=== PATIENT | female | born 1940 | race Caucasian/White ===

== ENCOUNTER 2016-10-19 14:09 | Inpatient (IN) | payer MEDICARE ==
[2016-10-19] MEDS ORDERED: Temazepam CAP* 15 MG PO PRN (15:43)
[2016-10-19] MEDS ORDERED: Dextrose 50% Syringe 50 ML* 25 GM/50 ML SYRINGE IV PUSH PRN (15:46)
[2016-10-19] MEDS ORDERED: Senna TAB PO PRN (15:49)
[2016-10-19] MEDS: oxyCODONE/Acetamin 5/325 MG* TAB PO PRN (18:03)
[2016-10-19] MEDS: Oxacillin(*) 2 GM in NS 0.9% 100 ML* 100 ML IVPB SCH ×2 (18:09→21:05)
[2016-10-19] MEDS: Insulin LISPRO* 1 UNITS UNIT SUBCUT SCH (18:37)
[2016-10-19] MEDS: Polyethylene Glycol 3350* 17 GM PACKET PO SCH (21:08)
[2016-10-19] MEDS: Insulin GLARGINE(*) 1 UNITS UNIT SUBCUT SCH (21:08)
[2016-10-19] MEDS: Atorvastatin* 40 MG TAB PO SCH (21:08)
[2016-10-19] MEDS: Docusate CAP* 100 MG PO SCH (21:08)
[2016-10-19] MEDS: Heparin VIAL(*) 5000 UNITS/ML VIAL (FIVE THOUSAND) SUBCUT SCH (21:09)
[2016-10-19] MEDS: oxyCODONE SR TAB(*) 10 MG TAB.SR PO SCH (21:12)
[2016-10-19] MEDS: Timolol 0.5% OPTH.SOL* BTL BOTH EYES SCH (21:13)
[2016-10-20] MEDS: Oxacillin(*) 2 GM in NS 0.9% 100 ML* 100 ML IVPB SCH ×6 (00:03→19:55)
[2016-10-20] MEDS: Heparin VIAL(*) 5000 UNITS/ML VIAL (FIVE THOUSAND) SUBCUT SCH ×3 (05:41→21:10)
[2016-10-20 06:07] LABS: Hematocrit 26 % (35-47); Hemoglobin 8.5 g/dl (12.0-16.0); Mean Corpuscular HGB Conc 34 g/dl (31-36); Mean Corpuscular Hemoglobin 27 pg (27-31); Mean Corpuscular Volume 81 fL (80-97); Mean Platelet Volume 7 um3 (7.4-10.4); Red Blood Count 3.15 10^6/ul (4.0-5.4); Red Cell Distribution Width 16 % (10.5-15); White Blood Count 9.5 10^3/ul (3.5-10.8)
[2016-10-20 06:08] LABS: Add Diff/Slide Review? Slide Review Added; Comments Flag Yes
[2016-10-20 06:18] LABS: BUN/Creatinine Ratio 20.6 (8-20); EGFR African American 118.5 (>60); EGFR Non-African American 92.1 (>60); Potassium 3.8 mmol/L (3.5-5.0)
[2016-10-20] MEDS: Timolol 0.5% OPTH.SOL* BTL BOTH EYES SCH ×2 (08:17→21:10)
[2016-10-20] MEDS: amLODIPine TAB* 5 MG PO SCH (08:17)
[2016-10-20] MEDS: Insulin LISPRO* 1 UNITS UNIT SUBCUT SCH ×3 (08:17→17:08)
[2016-10-20] MEDS: Polyethylene Glycol 3350* 17 GM PACKET PO SCH ×2 (08:17→21:09)
[2016-10-20] MEDS: oxyCODONE/Acetamin 5/325 MG* TAB PO PRN ×3 (08:18→17:57)
[2016-10-20] MEDS: Docusate CAP* 100 MG PO SCH ×2 (08:18→21:09)
[2016-10-20] MEDS: oxyCODONE SR TAB(*) 10 MG TAB.SR PO SCH ×2 (08:19→21:09)
[2016-10-20] MEDS: Atenolol TAB* 50 MG PO SCH (08:19)
[2016-10-20] MEDS: Cyclobenzaprine TAB* 10 MG PO PRN (17:57)
[2016-10-20] MEDS: Atorvastatin* 40 MG TAB PO SCH (21:09)
[2016-10-20] MEDS: Insulin GLARGINE(*) 1 UNITS UNIT SUBCUT SCH (21:10)
[2016-10-21] MEDS: Oxacillin(*) 2 GM in NS 0.9% 100 ML* 100 ML IVPB SCH ×7 (00:07→23:45)
[2016-10-21] MEDS: Heparin VIAL(*) 5000 UNITS/ML VIAL (FIVE THOUSAND) SUBCUT SCH ×3 (05:30→20:26)
[2016-10-21] MEDS: amLODIPine TAB* 5 MG PO SCH (08:10)
[2016-10-21] MEDS: oxyCODONE/Acetamin 5/325 MG* TAB PO PRN ×3 (08:10→18:03)
[2016-10-21] MEDS: oxyCODONE SR TAB(*) 10 MG TAB.SR PO SCH ×2 (08:10→20:26)
[2016-10-21] MEDS: Docusate CAP* 100 MG PO SCH ×2 (08:10→20:26)
[2016-10-21] MEDS: Polyethylene Glycol 3350* 17 GM PACKET PO SCH ×2 (08:10→20:26)
[2016-10-21] MEDS: Insulin LISPRO* 1 UNITS UNIT SUBCUT SCH ×3 (08:11→18:04)
[2016-10-21] MEDS: Atenolol TAB* 50 MG PO SCH (08:11)
[2016-10-21] MEDS: Cyclobenzaprine TAB* 10 MG PO PRN ×2 (08:11→18:03)
[2016-10-21] MEDS: Timolol 0.5% OPTH.SOL* BTL BOTH EYES SCH ×2 (08:45→20:25)
[2016-10-21] MEDS: Atorvastatin* 40 MG TAB PO SCH (20:25)
[2016-10-21] MEDS ORDERED: Insulin GLARGINE(*) 1 UNITS UNIT SUBCUT SCH (21:00)
[2016-10-22] MEDS: Oxacillin(*) 2 GM in NS 0.9% 100 ML* 100 ML IVPB SCH ×5 (04:14→20:50)
[2016-10-22] MEDS: Heparin VIAL(*) 5000 UNITS/ML VIAL (FIVE THOUSAND) SUBCUT SCH ×3 (05:07→21:14)
[2016-10-22] MEDS: Insulin LISPRO* 1 UNITS UNIT SUBCUT SCH ×7 (08:25→22:39)
[2016-10-22] MEDS: amLODIPine TAB* 5 MG PO SCH (08:44)
[2016-10-22] MEDS: oxyCODONE SR TAB(*) 10 MG TAB.SR PO SCH ×2 (08:44→21:13)
[2016-10-22] MEDS: Docusate CAP* 100 MG PO SCH ×2 (08:44→21:13)
[2016-10-22] MEDS: Polyethylene Glycol 3350* 17 GM PACKET PO SCH ×2 (08:44→21:14)
[2016-10-22] MEDS: Timolol 0.5% OPTH.SOL* BTL BOTH EYES SCH ×2 (08:44→21:14)
[2016-10-22] MEDS: Atenolol TAB* 50 MG PO SCH (08:44)
[2016-10-22] MEDS: oxyCODONE/Acetamin 5/325 MG* TAB PO PRN ×3 (08:56→21:18)
[2016-10-22] MEDS ORDERED: Insulin LISPRO* 1 UNITS UNIT SUBCUT SCH ×2 (11:30)
[2016-10-22] MEDS: Atorvastatin* 40 MG TAB PO SCH (21:12)
[2016-10-22] MEDS: Insulin GLARGINE(*) 1 UNITS UNIT SUBCUT SCH (21:14)
[2016-10-23] MEDS: Oxacillin(*) 2 GM in NS 0.9% 100 ML* 100 ML IVPB SCH ×6 (00:46→20:08)
[2016-10-23] MEDS: Heparin VIAL(*) 5000 UNITS/ML VIAL (FIVE THOUSAND) SUBCUT SCH ×3 (05:38→23:16)
[2016-10-23] MEDS: Insulin LISPRO* 1 UNITS UNIT SUBCUT SCH ×7 (08:16→20:57)
[2016-10-23] MEDS: amLODIPine TAB* 5 MG PO SCH (08:32)
[2016-10-23] MEDS: Docusate CAP* 100 MG PO SCH ×2 (08:32→20:08)
[2016-10-23] MEDS: oxyCODONE SR TAB(*) 10 MG TAB.SR PO SCH ×2 (08:32→20:58)
[2016-10-23] MEDS: Atenolol TAB* 50 MG PO SCH (08:33)
[2016-10-23] MEDS: Polyethylene Glycol 3350* 17 GM PACKET PO SCH ×2 (08:33→20:08)
[2016-10-23] MEDS: Timolol 0.5% OPTH.SOL* BTL BOTH EYES SCH ×2 (08:59→21:09)
--- NOTE | 2016-10-23 14:24 | PN ---
Progress Note - Progress Note SOAP: Subjective: DOS: 10/23/16 CC: epidural abscess 76 yo woman with Cervical and lumbad spine epidural abscess, s/p decompression of cervical abscess. Neck pain better but does recur 2-3 times per day, pain medicine helps, not worse with movement. No arm weakness or numbness. No problems with PICC. Objective: [] Selected Entries 10/23/16 07:35 Temperature 36.9 C Pulse Rate 89 Respiratory 15 Rate Blood Pressure 152/65 (mmHg) O2 Sat by Pulse 97 Oximetry Gen:AAOx3 HEENT:PERRL, MMM Neck:no mass Heart:no murmur, RRR Lungs:CTA BL Abd:+BS NTND soft Skin: no rash MSK: c spine incision intact no erythema; no L spine tenderness Laboratory Tests 10/20/16 10/20/16 05:30 05:30 WBC 9.5 Creatinine 0.63 Assessment: 1. cervical and lumbar epidural abscess due to MSSA 2. MSSA bacteremia, cleared 3. Diabetes 4. terminal block assembler abx 5. neck pain Plan: 1. Day 15 oxacillin 2 gm IV Q4hrs, tolerating it well, we discussed side effects to notify of and will continue weekly cbc, cmp, crp 2. tyelnol/oxycodone with scheduled oxycontin, can't add NSAIDs with heparin 3. PT
[2016-10-23] MEDS: oxyCODONE/Acetamin 5/325 MG* TAB PO PRN ×2 (16:31→21:09)
[2016-10-23] MEDS: Atorvastatin* 40 MG TAB PO SCH (20:08)
[2016-10-23] MEDS: Insulin GLARGINE(*) 1 UNITS UNIT SUBCUT SCH (20:56)
[2016-10-23] MEDS ORDERED: Magnesium Hydroxide LIQ* 30 ML UDC PO ONE (21:26)
[2016-10-24] MEDS: Oxacillin(*) 2 GM in NS 0.9% 100 ML* 100 ML IVPB SCH ×7 (00:39→23:59)
[2016-10-24] MEDS: Heparin VIAL(*) 5000 UNITS/ML VIAL (FIVE THOUSAND) SUBCUT SCH ×3 (06:12→21:29)
[2016-10-24] MEDS: Insulin LISPRO* 1 UNITS UNIT SUBCUT SCH ×7 (07:42→20:17)
[2016-10-24] MEDS: Atenolol TAB* 50 MG PO SCH (08:13)
[2016-10-24] MEDS: Docusate CAP* 100 MG PO SCH ×2 (08:13→20:19)
[2016-10-24] MEDS: amLODIPine TAB* 5 MG PO SCH (08:13)
[2016-10-24] MEDS: oxyCODONE/Acetamin 5/325 MG* TAB PO PRN ×3 (08:13→20:16)
[2016-10-24] MEDS: Polyethylene Glycol 3350* 17 GM PACKET PO SCH ×2 (08:13→20:16)
[2016-10-24] MEDS: oxyCODONE SR TAB(*) 10 MG TAB.SR PO SCH ×2 (08:14→20:17)
[2016-10-24] MEDS: Timolol 0.5% OPTH.SOL* BTL BOTH EYES SCH ×2 (08:51→20:19)
--- NOTE | 2016-10-24 09:15 | PN ---
Progress Note - Progress Note SOAP: Subjective: []DOS: 10/24/16 CC: epidural abscess 76 yo woman with Cervical and lumbar spine epidural abscess, s/p decompression of cervical abscess. Neck pain comes and goes, worse in the morning, throbbing , does not radiate, no arm weakness, pain medication helps. No fever, rash, or diarrhea. Current Medications Amlodipine Besylate (Norvasc Tab*) 10 mg PO DAILY [facility] Last Admin: 10/24/16 08:13 Dose: 10 mg Atenolol (Tenormin Tab*) 50 mg PO DAILY [facility] Last Admin: 10/24/16 08:13 Dose: 50 mg Atorvastatin Calcium (Lipitor*) 40 mg PO 2100 [facility] Last Admin: 10/23/16 20:08 Dose: 40 mg Cyclobenzaprine HCl (Flexeril Tab*) 10 mg PO TID PRN PRN Reason: SPASMS Last Admin: 10/21/16 18:03 Dose: 10 mg Dextrose (D50w Syringe*) 12.5 gm IV PUSH .FOR FS < 60 - SS PRN PRN Reason: FS < 60 Docusate Sodium (Colace Cap*) 100 mg PO BID [facility] Last Admin: 10/24/16 08:13 Dose: 100 mg Heparin Sodium (Porcine) (Heparin Flush Picc/Ml/Cvc(*)) 1 ml FLUSH 0600,1800 [facility] PRN Reason: Protocol Last Admin: 10/24/16 06:13 Dose: 1 ml Heparin Sodium (Porcine) (Heparin Vial(*)) 5,000 units SUBCUT Q8HR [facility] Last Admin: 10/24/16 06:12 Dose: 5,000 units Oxacillin Sodium 2 gm/ Sodium (Chloride) 100 mls @ 200 mls/hr IVPB Q4H [facility] Last Admin: 10/24/16 08:51 Dose: 200 mls/hr Insulin Glargine (Lantus(*)) 35 units SUBCUT Q24H [facility] Last Admin: 10/23/16 20:56 Dose: 35 units Insulin Human Lispro (Humalog*) 0 units SUBCUT AC [facility] PRN Reason: Protocol Last Admin: 10/24/16 08:51 Dose: 7 units Insulin Human Lispro (Humalog*) 0 units SUBCUT ACHS [facility] PRN Reason: Protocol Last Admin: 10/24/16 07:42 Dose: Not Given Oxycodone HCl (Oxycontin(*)) 10 mg PO Q12HR [facility] Last Admin: 10/24/16 08:14 Dose: 10 mg Oxycodone/Acetaminophen (Percocet 5/325 Tab*) 2 tab PO Q4H PRN PRN Reason: Pain Last Admin: 10/24/16 08:13 Dose: 2 tab Polyethylene Glycol/Electrolytes (Miralax*) 17 gm PO 0800,2100 [facility] Last Admin: 10/24/16 08:13 Dose: 17 gm Senna (Senokot Tab*) 1 tab PO BEDTIME PRN PRN Reason: CONSTIPATION Last Admin: 10/23/16 20:08 Dose: 1 tab Temazepam (Restoril Cap*) 15 mg PO BEDTIME PRN PRN Reason: INSOMNIA Timolol Maleate (Timoptic 0.5% Opth*) 1 drop BOTH EYES BID [facility] Last Admin: 10/24/16 08:51 Dose: 1 drop Objective: [] Selected Entries 10/24/16 07:36 Temperature 36.8 C Pulse Rate 91 Respiratory 16 Rate Blood Pressure 148/41 (mmHg) O2 Sat by Pulse 98 Oximetry Gen:AAOx3 HEENT:PERRL, MMM Neck:no mass Heart:no murmur, RRR Lungs:CTA BL Abd:+BS NTND soft Skin: no rash MSK: c spine incision intact no erythema; no L spine tenderness Laboratory Tests 10/20/16 10/20/16 05:30 05:30 WBC 9.5 Plt Count 439 Creatinine 0.63 Assessment: 1. cervical and lumbar epidural abscess due to MSSA 2. MSSA bacteremia, cleared 3. Diabetes 4. correction abx 5. neck pain Plan: 1. Day oxacillin 2 gm IV Q4hrs, tolerating it well, we discussed side effects to notify of and will continue weekly cbc, cmp, crp 2. tyelnol/oxycodone with scheduled oxycontin, can't add NSAIDs with heparin 3. PT Discussed with Dr Murillo
[2016-10-24] MEDS: Atorvastatin* 40 MG TAB PO SCH (20:16)
[2016-10-24] MEDS: Insulin GLARGINE(*) 1 UNITS UNIT SUBCUT SCH (20:18)
[2016-10-25] MEDS: oxyCODONE/Acetamin 5/325 MG* TAB PO PRN ×5 (00:03→21:28)
[2016-10-25] MEDS: Oxacillin(*) 2 GM in NS 0.9% 100 ML* 100 ML IVPB SCH ×5 (04:00→20:20)
[2016-10-25] MEDS: Heparin VIAL(*) 5000 UNITS/ML VIAL (FIVE THOUSAND) SUBCUT SCH ×3 (05:22→21:48)
[2016-10-25 06:52] LABS: Hematocrit 27 % (35-47); Mean Corpuscular HGB Conc 33 g/dl (31-36); Mean Corpuscular Hemoglobin 28 pg (27-31); Mean Corpuscular Volume 83 fL (80-97); Mean Platelet Volume 7 um3 (7.4-10.4); Red Blood Count 3.26 10^6/ul (4.0-5.4); Red Cell Distribution Width 17 % (10.5-15); White Blood Count 8.7 10^3/ul (3.5-10.8)
[2016-10-25 06:53] LABS: Add Diff/Slide Review? Slide Review Added; Comments Flag Yes
[2016-10-25 07:09] LABS: Albumin 2.7 g/dL (3.2-5.2); BUN/Creatinine Ratio 20.6 (8-20); C Reactive Protein 57.12 mg/L (< 5.00); Calcium 8.8 mg/dL (8.6-10.3); EGFR African American 118.5 (>60); EGFR Non-African American 92.1 (>60); Globulin 3.9 g/dL (2-4); Potassium 3.9 mmol/L (3.5-5.0); Total Bilirubin 0.2 mg/dL (0.2-1.0); Total Protein 6.6 g/dL (6.4-8.9)
[2016-10-25] MEDS: Insulin LISPRO* 1 UNITS UNIT SUBCUT SCH ×7 (09:01→21:43)
[2016-10-25] MEDS: Atenolol TAB* 50 MG PO SCH (09:05)
[2016-10-25] MEDS: amLODIPine TAB* 5 MG PO SCH (09:05)
[2016-10-25] MEDS: oxyCODONE SR TAB(*) 10 MG TAB.SR PO SCH ×2 (09:05→20:43)
[2016-10-25] MEDS: Polyethylene Glycol 3350* 17 GM PACKET PO SCH ×2 (09:12→21:23)
[2016-10-25] MEDS: Docusate CAP* 100 MG PO SCH ×2 (09:12→21:23)
[2016-10-25] MEDS: Timolol 0.5% OPTH.SOL* BTL BOTH EYES SCH ×2 (09:13→21:49)
--- NOTE | 2016-10-25 13:12 | PN ---
Subjective Date of Service: 10/25/16 Interval History: HOSPITALIST PROGRESS NOTE Patient seen and examined at bedside. She feels well today. Still has some cervical pain, but overall feels better. Family History: Unchanged from Admission Social History: Unchanged from Admission Past Medical History: Unchanged from Admission Objective Active Medications: Amlodipine Besylate (Norvasc Tab*) 10 mg PO DAILY [facility] Last Admin: 10/25/16 09:05 Dose: 10 mg Atenolol (Tenormin Tab*) 50 mg PO DAILY [facility] Last Admin: 10/25/16 09:05 Dose: 50 mg Atorvastatin Calcium (Lipitor*) 40 mg PO 2100 [facility] Last Admin: 10/24/16 20:16 Dose: 40 mg Cyclobenzaprine HCl (Flexeril Tab*) 10 mg PO TID PRN PRN Reason: SPASMS Last Admin: 10/21/16 18:03 Dose: 10 mg Dextrose (D50w Syringe*) 12.5 gm IV PUSH .FOR FS < 60 - SS PRN PRN Reason: FS < 60 Docusate Sodium (Colace Cap*) 100 mg PO BID [facility] Last Admin: 10/25/16 09:12 Dose: Not Given Heparin Sodium (Porcine) (Heparin Flush Picc/Ml/Cvc(*)) 1 ml FLUSH 0600,1800 [facility] PRN Reason: Protocol Last Admin: 10/25/16 05:22 Dose: 1 ml Heparin Sodium (Porcine) (Heparin Vial(*)) 5,000 units SUBCUT Q8HR [facility] Last Admin: 10/25/16 05:22 Dose: 5,000 units Oxacillin Sodium 2 gm/ Sodium (Chloride) 100 mls @ 200 mls/hr IVPB Q4H [facility] Last Admin: 10/25/16 09:07 Dose: 200 mls/hr Insulin Glargine (Lantus(*)) 30 units SUBCUT Q24H [facility] Last Admin: 10/24/16 20:18 Dose: 30 units Insulin Human Lispro (Humalog*) 0 units SUBCUT ACHS [facility] PRN Reason: Protocol Last Admin: 10/25/16 09:06 Dose: 10 units Insulin Human Lispro (Humalog*) 0 units SUBCUT AC [facility] PRN Reason: Protocol Oxycodone HCl (Oxycontin(*)) 10 mg PO Q12HR [facility] Last Admin: 10/25/16 09:05 Dose: 10 mg Oxycodone/Acetaminophen (Percocet 5/325 Tab*) 2 tab PO Q4H PRN PRN Reason: Pain Last Admin: 10/25/16 10:50 Dose: 2 tab Polyethylene Glycol/Electrolytes (Miralax*) 17 gm PO 0800,2100 [facility] Last Admin: 10/25/16 09:12 Dose: Not Given Senna (Senokot Tab*) 1 tab PO BEDTIME PRN PRN Reason: CONSTIPATION Last Admin: 10/23/16 20:08 Dose: 1 tab Temazepam (Restoril Cap*) 15 mg PO BEDTIME PRN PRN Reason: INSOMNIA Timolol Maleate (Timoptic 0.5% Opth*) 1 drop BOTH EYES BID [facility] Last Admin: 10/25/16 09:13 Dose: 1 drop Vital Signs 10/25/16 10/25/16 10/25/16 07:44 09:05 10:50 Temperature 98.4 F Pulse Rate 80 Respiratory 16 20 18 Rate Blood Pressure 150/50 (mmHg) O2 Sat by Pulse 99 Oximetry Oxygen Devices in Use Now: None Appearance: Pleasant elderly lady sitting up in a chair in [facility]. Eyes: No Scleral Icterus Ears/Nose/Mouth/Throat: Mucous Membranes Moist Neck: - - Surgical incision on posterior neck looks clean and dry. There's no erythema or drainage. Stitches on the right are still present. Respiratory: Symmetrical Chest Expansion and Respiratory Effort, Clear to Auscultation Cardiovascular: RRR - Normal S1 and S2 Abdominal: NL Sounds; No Tenderness; No Distention Extremities: No Edema, - - No right arm edema or tenderness Neurological: Alert and Oriented x 3, NL Muscle Strength and Tone Lines/Tubes/Other Access: Clean, Dry and Intact PICC Line Nutrition: Taking PO's Result Diagrams: 10/25/16 06:16 10/25/16 06:16 Assess/Plan/Problems-Billing Assessment: Mrs. Peralta is a 76yo F with PMH of type 2 DM, HLD, HTN who was admitted with cervical spine epidural abscess s/p surgical decompression and lumbar spine epidural abscess undergoing medical treatment. - Patient Problems (1) MSSA (methicillin susceptible Staphylococcus aureus) septicemia Comment: - With cervical and lumbar epidural abscess. - Continue Oxacillin #. - Check weekly CBC, CMP, CRP. (2) Type 2 diabetes mellitus Comment: - Difficult to control due to variable carb intake - will change to consistent carb diet and continue Lantus and Lispro SS. - Patient educated about importance of carbohydrate counting. (3) HTN (hypertension) Comment: - Controlled. - Continue Atenolol and Amlodipine. (4) DVT prophylaxis Comment: - SQ heparin. Status and Disposition: Inpatient.
[2016-10-25] MEDS: Atorvastatin* 40 MG TAB PO SCH (20:42)
[2016-10-25] MEDS: Insulin GLARGINE(*) 1 UNITS UNIT SUBCUT SCH (21:47)
[2016-10-26] MEDS: Oxacillin(*) 2 GM in NS 0.9% 100 ML* 100 ML IVPB SCH ×6 (00:20→20:00)
[2016-10-26] MEDS: oxyCODONE/Acetamin 5/325 MG* TAB PO PRN ×3 (06:20→18:16)
[2016-10-26] MEDS: Heparin VIAL(*) 5000 UNITS/ML VIAL (FIVE THOUSAND) SUBCUT SCH ×3 (06:21→21:36)
[2016-10-26] MEDS: Docusate CAP* 100 MG PO SCH ×2 (09:10→21:36)
[2016-10-26] MEDS: amLODIPine TAB* 5 MG PO SCH (09:10)
[2016-10-26] MEDS: Polyethylene Glycol 3350* 17 GM PACKET PO SCH ×2 (09:11→21:36)
[2016-10-26] MEDS: Timolol 0.5% OPTH.SOL* BTL BOTH EYES SCH ×2 (09:11→21:43)
[2016-10-26] MEDS: oxyCODONE SR TAB(*) 10 MG TAB.SR PO SCH ×2 (09:11→21:36)
[2016-10-26] MEDS: Atenolol TAB* 50 MG PO SCH (09:11)
[2016-10-26] MEDS: Insulin LISPRO* 1 UNITS UNIT SUBCUT SCH ×7 (09:20→21:34)
[2016-10-26] MEDS: Insulin GLARGINE(*) 1 UNITS UNIT SUBCUT SCH (21:35)
[2016-10-26] MEDS: Atorvastatin* 40 MG TAB PO SCH (21:36)
[2016-10-27] MEDS: Oxacillin(*) 2 GM in NS 0.9% 100 ML* 100 ML IVPB SCH ×6 (00:38→21:20)
[2016-10-27] MEDS: Heparin VIAL(*) 5000 UNITS/ML VIAL (FIVE THOUSAND) SUBCUT SCH ×3 (05:07→21:18)
[2016-10-27] MEDS: oxyCODONE SR TAB(*) 10 MG TAB.SR PO SCH ×2 (07:46→21:18)
[2016-10-27] MEDS: oxyCODONE/Acetamin 5/325 MG* TAB PO PRN ×4 (07:46→21:35)
[2016-10-27] MEDS: Docusate CAP* 100 MG PO SCH ×2 (07:50→21:18)
[2016-10-27] MEDS: Polyethylene Glycol 3350* 17 GM PACKET PO SCH ×2 (07:50→21:18)
[2016-10-27] MEDS: Atenolol TAB* 50 MG PO SCH (07:50)
[2016-10-27] MEDS: amLODIPine TAB* 5 MG PO SCH (07:50)
[2016-10-27] MEDS: Timolol 0.5% OPTH.SOL* BTL BOTH EYES SCH ×2 (09:12→21:18)
[2016-10-27] MEDS: Insulin LISPRO* 1 UNITS UNIT SUBCUT SCH ×7 (09:13→21:43)
[2016-10-27] MEDS: Atorvastatin* 40 MG TAB PO SCH (21:18)
[2016-10-27] MEDS: Cyclobenzaprine TAB* 10 MG PO PRN (21:18)
[2016-10-27] MEDS: Insulin GLARGINE(*) 1 UNITS UNIT SUBCUT SCH (21:19)
[2016-10-28] MEDS: Oxacillin(*) 2 GM in NS 0.9% 100 ML* 100 ML IVPB SCH ×6 (00:44→20:25)
[2016-10-28] MEDS: oxyCODONE/Acetamin 5/325 MG* TAB PO PRN ×3 (06:12→21:07)
[2016-10-28] MEDS: Heparin VIAL(*) 5000 UNITS/ML VIAL (FIVE THOUSAND) SUBCUT SCH ×3 (06:13→21:08)
[2016-10-28] MEDS: Timolol 0.5% OPTH.SOL* BTL BOTH EYES SCH ×2 (08:05→21:08)
[2016-10-28] MEDS: Polyethylene Glycol 3350* 17 GM PACKET PO SCH ×2 (08:05→20:29)
[2016-10-28] MEDS: Atenolol TAB* 50 MG PO SCH (08:06)
[2016-10-28] MEDS: Docusate CAP* 100 MG PO SCH ×2 (08:06→20:25)
[2016-10-28] MEDS: oxyCODONE SR TAB(*) 10 MG TAB.SR PO SCH ×2 (08:06→20:24)
[2016-10-28] MEDS: amLODIPine TAB* 5 MG PO SCH (08:06)
[2016-10-28] MEDS: Cyclobenzaprine TAB* 10 MG PO PRN (08:44)
[2016-10-28] MEDS: Insulin LISPRO* 1 UNITS UNIT SUBCUT SCH ×7 (08:44→20:23)
[2016-10-28] MEDS: Atorvastatin* 40 MG TAB PO SCH (20:24)
[2016-10-28] MEDS: Insulin GLARGINE(*) 1 UNITS UNIT SUBCUT SCH (20:24)
[2016-10-29] MEDS: Oxacillin(*) 2 GM in NS 0.9% 100 ML* 100 ML IVPB SCH ×6 (00:23→20:49)
[2016-10-29] MEDS: Heparin VIAL(*) 5000 UNITS/ML VIAL (FIVE THOUSAND) SUBCUT SCH ×3 (05:18→20:49)
[2016-10-29] MEDS: Polyethylene Glycol 3350* 17 GM PACKET PO SCH ×2 (07:19→20:48)
[2016-10-29] MEDS: oxyCODONE SR TAB(*) 10 MG TAB.SR PO SCH ×2 (07:19→20:48)
[2016-10-29] MEDS: amLODIPine TAB* 5 MG PO SCH (07:19)
[2016-10-29] MEDS: oxyCODONE/Acetamin 5/325 MG* TAB PO PRN ×3 (07:19→20:48)
[2016-10-29] MEDS: Timolol 0.5% OPTH.SOL* BTL BOTH EYES SCH ×2 (07:19→20:49)
[2016-10-29] MEDS: Atenolol TAB* 50 MG PO SCH (07:20)
[2016-10-29] MEDS: Docusate CAP* 100 MG PO SCH ×2 (07:20→20:49)
[2016-10-29] MEDS: Insulin LISPRO* 1 UNITS UNIT SUBCUT SCH ×7 (08:36→20:38)
--- NOTE | 2016-10-29 08:44 | PN ---
Progress Note - Progress Note SOAP: Subjective: DOS: 10/29/16 CC: epidural abscess 76 yo woman with Cervical and lumbar spine epidural abscess, s/p decompression of cervical abscess. Neck pain comes and goes, worse in the morning, throbbing , does not radiate, no arm weakness, percocet helps. No fever, rash, or diarrhea. Current Medications Amlodipine Besylate (Norvasc Tab*) 10 mg PO DAILY [facility] Last Admin: 10/29/16 07:19 Dose: 10 mg Atenolol (Tenormin Tab*) 50 mg PO DAILY [facility] Last Admin: 10/29/16 07:20 Dose: 50 mg Atorvastatin Calcium (Lipitor*) 40 mg PO 2100 [facility] Last Admin: 10/28/16 20:24 Dose: 40 mg Cyclobenzaprine HCl (Flexeril Tab*) 10 mg PO TID PRN PRN Reason: SPASMS Last Admin: 10/28/16 08:44 Dose: 10 mg Dextrose (D50w Syringe*) 12.5 gm IV PUSH .FOR FS < 60 - SS PRN PRN Reason: FS < 60 Docusate Sodium (Colace Cap*) 100 mg PO BID [facility] Last Admin: 10/29/16 07:20 Dose: 100 mg Heparin Sodium (Porcine) (Heparin Flush Picc/Ml/Cvc(*)) 1 ml FLUSH 0600,1800 [facility] PRN Reason: Protocol Last Admin: 10/29/16 05:18 Dose: 1 ml Heparin Sodium (Porcine) (Heparin Vial(*)) 5,000 units SUBCUT Q8HR [facility] Last Admin: 10/29/16 05:18 Dose: 5,000 units Oxacillin Sodium 2 gm/ Sodium (Chloride) 100 mls @ 200 mls/hr IVPB Q4H [facility] Last Admin: 10/29/16 07:22 Dose: 200 mls/hr Insulin Glargine (Lantus(*)) 30 units SUBCUT Q24H [facility] Last Admin: 10/28/16 20:24 Dose: 30 units Insulin Human Lispro (Humalog*) 0 units SUBCUT ACHS [facility] PRN Reason: Protocol Last Admin: 10/29/16 08:36 Dose: 1 units Insulin Human Lispro (Humalog*) 0 units SUBCUT AC [facility] PRN Reason: Protocol Last Admin: 10/29/16 08:36 Dose: 4 units Oxycodone HCl (Oxycontin(*)) 10 mg PO Q12HR [facility] Last Admin: 10/29/16 07:19 Dose: 10 mg Oxycodone/Acetaminophen (Percocet 5/325 Tab*) 2 tab PO Q4H PRN PRN Reason: Pain Last Admin: 10/29/16 07:19 Dose: 2 tab Polyethylene Glycol/Electrolytes (Miralax*) 17 gm PO 0800,2100 [facility] Last Admin: 10/29/16 07:19 Dose: 17 gm Senna (Senokot Tab*) 1 tab PO BEDTIME PRN PRN Reason: CONSTIPATION Last Admin: 10/23/16 20:08 Dose: 1 tab Temazepam (Restoril Cap*) 15 mg PO BEDTIME PRN PRN Reason: INSOMNIA Timolol Maleate (Timoptic 0.5% Opth*) 1 drop BOTH EYES BID [facility] Last Admin: 10/29/16 07:19 Dose: 1 drop Objective: [] Vital Signs Temp 36.3 C 10/28/16 07:23 Pulse 82 10/28/16 07:23 Resp 18 10/29/16 07:19 BP 136/51 10/28/16 07:23 Pulse Ox 100 10/28/16 07:23 Intake & Output 10/28/16 10/29/16 10/29/16 18:59 06:59 18:59 Intake Total 800 770 Balance 800 770 Intake: IV Fluids 100 Oxacillin 100 IVPB 200 200 Oxacillin 200 200 Oral 600 470 Other: Estimated Void Medium Medium # Bowel Movements 1 1 Estimated Stool Amount Medium Small # Voids 1 1 Gen:AAOx3 HEENT:PERRL, MMM Neck:no mass Heart:no murmur, RRR Lungs:CTA BL Abd:+BS NTND soft Skin: no rash MSK: c spine incision intact no erythema; no L spine tenderness Laboratory Results - last 24 hr 10/28/16 10/28/16 10/28/16 11:25 17:02 20:13 POC Glucose (mg/dL) 196 H 214 H 206 H 10/29/16 06:50 POC Glucose (mg/dL) 133 H Assessment: 1. cervical and lumbar epidural abscess due to MSSA 2. MSSA bacteremia, cleared 3. Diabetes, T2 4. detention abx 5. neck pain Plan: 1. Day oxacillin 2 gm IV Q4hrs, tolerating it well, continue weekly cbc, cmp, crp 2. tyelnol/oxycodone with scheduled oxycontin, can't add NSAIDs with heparin 3. PT
[2016-10-29] MEDS: Atorvastatin* 40 MG TAB PO SCH (20:48)
[2016-10-29] MEDS: Insulin GLARGINE(*) 1 UNITS UNIT SUBCUT SCH (20:49)
[2016-10-30] MEDS: Oxacillin(*) 2 GM in NS 0.9% 100 ML* 100 ML IVPB SCH ×6 (00:10→20:35)
[2016-10-30] MEDS: Heparin VIAL(*) 5000 UNITS/ML VIAL (FIVE THOUSAND) SUBCUT SCH ×3 (05:18→21:46)
[2016-10-30] MEDS: Insulin LISPRO* 1 UNITS UNIT SUBCUT SCH ×7 (07:30→21:46)
[2016-10-30] MEDS: Polyethylene Glycol 3350* 17 GM PACKET PO SCH ×2 (08:04→20:35)
[2016-10-30] MEDS: Timolol 0.5% OPTH.SOL* BTL BOTH EYES SCH ×2 (08:05→20:45)
[2016-10-30] MEDS: amLODIPine TAB* 5 MG PO SCH (08:06)
[2016-10-30] MEDS: Docusate CAP* 100 MG PO SCH ×2 (08:06→20:35)
[2016-10-30] MEDS: oxyCODONE/Acetamin 5/325 MG* TAB PO PRN ×3 (08:06→20:34)
[2016-10-30] MEDS: oxyCODONE SR TAB(*) 10 MG TAB.SR PO SCH ×2 (08:06→20:35)
[2016-10-30] MEDS: Atenolol TAB* 50 MG PO SCH (08:06)
[2016-10-30] MEDS: Atorvastatin* 40 MG TAB PO SCH (20:34)
[2016-10-30] MEDS: Insulin GLARGINE(*) 1 UNITS UNIT SUBCUT SCH (21:46)
[2016-10-31] MEDS: Oxacillin(*) 2 GM in NS 0.9% 100 ML* 100 ML IVPB SCH ×6 (00:21→20:49)
[2016-10-31] MEDS: Heparin VIAL(*) 5000 UNITS/ML VIAL (FIVE THOUSAND) SUBCUT SCH ×3 (05:19→21:49)
[2016-10-31] MEDS: Insulin LISPRO* 1 UNITS UNIT SUBCUT SCH ×7 (07:29→20:54)
[2016-10-31] MEDS: Docusate CAP* 100 MG PO SCH ×2 (08:48→20:49)
[2016-10-31] MEDS: Atenolol TAB* 50 MG PO SCH (08:48)
[2016-10-31] MEDS: amLODIPine TAB* 5 MG PO SCH (08:48)
[2016-10-31] MEDS: oxyCODONE SR TAB(*) 10 MG TAB.SR PO SCH ×2 (08:48→20:50)
[2016-10-31] MEDS: Polyethylene Glycol 3350* 17 GM PACKET PO SCH ×2 (08:48→20:49)
[2016-10-31] MEDS: oxyCODONE/Acetamin 5/325 MG* TAB PO PRN ×3 (08:49→20:49)
[2016-10-31] MEDS: Timolol 0.5% OPTH.SOL* BTL BOTH EYES SCH ×2 (08:52→21:04)
--- NOTE | 2016-10-31 08:58 | PN ---
Progress Note - Progress Note SOAP: Subjective: DOS: 10/31/16 CC: epidural abscess 76 yo woman with Cervical and lumbar spine epidural abscess, s/p decompression of cervical abscess. Neck pain overall better, no lower back pain. No fever, rash, or diarrhea. Walked 2 laps yesterday. Appetite good. Current Medications Amlodipine Besylate (Norvasc Tab*) 10 mg PO DAILY [facility] Last Admin: 10/31/16 08:48 Dose: 10 mg Atenolol (Tenormin Tab*) 50 mg PO DAILY [facility] Last Admin: 10/31/16 08:48 Dose: 50 mg Atorvastatin Calcium (Lipitor*) 40 mg PO 2100 [facility] Last Admin: 10/30/16 20:34 Dose: 40 mg Cyclobenzaprine HCl (Flexeril Tab*) 10 mg PO TID PRN PRN Reason: SPASMS Last Admin: 10/28/16 08:44 Dose: 10 mg Dextrose (D50w Syringe*) 12.5 gm IV PUSH .FOR FS < 60 - SS PRN PRN Reason: FS < 60 Docusate Sodium (Colace Cap*) 100 mg PO BID [facility] Last Admin: 10/31/16 08:48 Dose: 100 mg Heparin Sodium (Porcine) (Heparin Flush Picc/Ml/Cvc(*)) 1 ml FLUSH 0600,1800 [facility] PRN Reason: Protocol Last Admin: 10/31/16 05:19 Dose: 1 ml Heparin Sodium (Porcine) (Heparin Vial(*)) 5,000 units SUBCUT Q8HR [facility] Last Admin: 10/31/16 05:19 Dose: 5,000 units Oxacillin Sodium 2 gm/ Sodium (Chloride) 100 mls @ 200 mls/hr IVPB Q4H [facility] Last Admin: 10/31/16 08:48 Dose: 200 mls/hr Insulin Glargine (Lantus(*)) 30 units SUBCUT Q24H [facility] Last Admin: 10/30/16 21:46 Dose: 30 units Insulin Human Lispro (Humalog*) 0 units SUBCUT ACHS [facility] PRN Reason: Protocol Last Admin: 10/31/16 07:29 Dose: Not Given Insulin Human Lispro (Humalog*) 0 units SUBCUT AC [facility] PRN Reason: Protocol Last Admin: 10/31/16 08:47 Dose: 4 units Oxycodone HCl (Oxycontin(*)) 10 mg PO Q12HR [facility] Last Admin: 10/31/16 08:48 Dose: 10 mg Oxycodone/Acetaminophen (Percocet 5/325 Tab*) 2 tab PO Q4H PRN PRN Reason: Pain Last Admin: 10/31/16 08:49 Dose: 2 tab Polyethylene Glycol/Electrolytes (Miralax*) 17 gm PO 0800,2100 [facility] Last Admin: 10/31/16 08:48 Dose: 17 gm Senna (Senokot Tab*) 1 tab PO BEDTIME PRN PRN Reason: CONSTIPATION Last Admin: 10/23/16 20:08 Dose: 1 tab Temazepam (Restoril Cap*) 15 mg PO BEDTIME PRN PRN Reason: INSOMNIA Timolol Maleate (Timoptic 0.5% Opth*) 1 drop BOTH EYES BID [facility] Last Admin: 10/31/16 08:52 Dose: 1 drop Objective: [] Vital Signs Temp 36.9 C 10/30/16 07:21 Pulse 82 10/30/16 07:21 Resp 18 10/31/16 08:49 BP 152/48 10/30/16 07:21 Pulse Ox 99 10/30/16 07:21 Intake & Output 10/30/16 10/31/16 10/31/16 18:59 06:59 18:59 Intake Total 640 1512 Balance 640 1512 Intake: IVPB 632 Oxacillin 632 Oral 640 880 Other: Estimated Void Large # Bowel Movements 0 0 # Voids 3 1 Gen:AAOx3 HEENT:PERRL, MMM Neck:no mass Heart:no murmur, RRR Lungs:CTA BL Abd:+BS NTND soft Skin: no rash MSK: c spine incision intact no erythema; no L spine tenderness Assessment: 1. cervical and lumbar epidural abscess due to MSSA 2. MSSA bacteremia, cleared 3. Diabetes, T2 4. fci abx 5. neck pain Plan: 1. Day oxacillin 2 gm IV Q4hrs, tolerating it well, cbc, cmp, crp ordered for 11/01 2. tyelnol/oxycodone with scheduled oxycontin 3. PT
[2016-10-31] MEDS: Atorvastatin* 40 MG TAB PO SCH (20:49)
[2016-10-31] MEDS: Insulin GLARGINE(*) 1 UNITS UNIT SUBCUT SCH (20:53)
[2016-11-01] MEDS: Oxacillin(*) 2 GM in NS 0.9% 100 ML* 100 ML IVPB SCH ×6 (00:26→20:15)
[2016-11-01] MEDS: Heparin VIAL(*) 5000 UNITS/ML VIAL (FIVE THOUSAND) SUBCUT SCH ×3 (05:32→21:11)
[2016-11-01 05:45] LABS: Hematocrit 28 % (35-47); Hemoglobin 9.1 g/dl (12.0-16.0); Mean Corpuscular HGB Conc 33 g/dl (31-36); Mean Corpuscular Hemoglobin 26 pg (27-31); Mean Corpuscular Volume 81 fL (80-97); Mean Platelet Volume 7 um3 (7.4-10.4); Red Blood Count 3.43 10^6/ul (4.0-5.4); Red Cell Distribution Width 17 % (10.5-15); White Blood Count 6.3 10^3/ul (3.5-10.8)
[2016-11-01 05:55] LABS: BUN/Creatinine Ratio 17.6 (8-20); C Reactive Protein 17.49 mg/L (< 5.00); Calcium 9.1 mg/dL (8.6-10.3); EGFR African American 108.5 (>60); EGFR Non-African American 84.4 (>60); Globulin 3.9 g/dL (2-4); Potassium 3.8 mmol/L (3.5-5.0); Total Bilirubin 0.2 mg/dL (0.2-1.0); Total Protein 6.9 g/dL (6.4-8.9)
[2016-11-01] MEDS: Insulin LISPRO* 1 UNITS UNIT SUBCUT SCH ×7 (07:25→21:12)
[2016-11-01] MEDS: amLODIPine TAB* 5 MG PO SCH (08:43)
[2016-11-01] MEDS: Atenolol TAB* 50 MG PO SCH (08:44)
[2016-11-01] MEDS: Docusate CAP* 100 MG PO SCH ×2 (08:44→21:09)
[2016-11-01] MEDS: Polyethylene Glycol 3350* 17 GM PACKET PO SCH ×2 (08:44→21:09)
[2016-11-01] MEDS: oxyCODONE SR TAB(*) 10 MG TAB.SR PO SCH ×2 (08:44→21:10)
[2016-11-01] MEDS: Timolol 0.5% OPTH.SOL* BTL BOTH EYES SCH ×2 (08:45→21:09)
[2016-11-01] MEDS: oxyCODONE/Acetamin 5/325 MG* TAB PO PRN ×3 (08:49→21:48)
--- NOTE | 2016-11-01 09:42 | PN ---
Subjective Date of Service: 11/01/16 Interval History: Patient seen this morning. Seems to be in good spirits. Sutures in the neck removed by Dr. Silvestre this morning. She has been ambulating around the unit. Family History: Unchanged from Admission Social History: Unchanged from Admission Past Medical History: Unchanged from Admission Objective Active Medications: Amlodipine Besylate (Norvasc Tab*) 10 mg PO DAILY [facility] Last Admin: 11/01/16 08:43 Dose: 10 mg Atenolol (Tenormin Tab*) 50 mg PO DAILY [facility] Last Admin: 11/01/16 08:44 Dose: 50 mg Atorvastatin Calcium (Lipitor*) 40 mg PO 2100 [facility] Last Admin: 10/31/16 20:49 Dose: 40 mg Cyclobenzaprine HCl (Flexeril Tab*) 10 mg PO TID PRN PRN Reason: SPASMS Last Admin: 10/28/16 08:44 Dose: 10 mg Dextrose (D50w Syringe*) 12.5 gm IV PUSH .FOR FS < 60 - SS PRN PRN Reason: FS < 60 Docusate Sodium (Colace Cap*) 100 mg PO BID [facility] Last Admin: 11/01/16 08:44 Dose: 100 mg Heparin Sodium (Porcine) (Heparin Flush Picc/Ml/Cvc(*)) 1 ml FLUSH 0600,1800 [facility] PRN Reason: Protocol Last Admin: 11/01/16 05:22 Dose: 1 ml Heparin Sodium (Porcine) (Heparin Vial(*)) 5,000 units SUBCUT Q8HR [facility] Last Admin: 11/01/16 05:32 Dose: 5,000 units Oxacillin Sodium 2 gm/ Sodium (Chloride) 100 mls @ 200 mls/hr IVPB Q4H [facility] Last Admin: 11/01/16 08:43 Dose: 200 mls/hr Insulin Glargine (Lantus(*)) 30 units SUBCUT Q24H [facility] Last Admin: 10/31/16 20:53 Dose: 30 units Insulin Human Lispro (Humalog*) 0 units SUBCUT ACHS [facility] PRN Reason: Protocol Last Admin: 11/01/16 07:25 Dose: Not Given Insulin Human Lispro (Humalog*) 0 units SUBCUT AC [facility] PRN Reason: Protocol Last Admin: 11/01/16 08:44 Dose: 3 units Oxycodone HCl (Oxycontin(*)) 10 mg PO Q12HR [facility] Last Admin: 11/01/16 08:44 Dose: 10 mg Oxycodone/Acetaminophen (Percocet 5/325 Tab*) 2 tab PO Q4H PRN PRN Reason: Pain Last Admin: 11/01/16 08:49 Dose: 2 tab Polyethylene Glycol/Electrolytes (Miralax*) 17 gm PO 0800,2100 [facility] Last Admin: 11/01/16 08:44 Dose: 17 gm Senna (Senokot Tab*) 1 tab PO BEDTIME PRN PRN Reason: CONSTIPATION Last Admin: 10/23/16 20:08 Dose: 1 tab Timolol Maleate (Timoptic 0.5% Opth*) 1 drop BOTH EYES BID [facility] Last Admin: 11/01/16 08:45 Dose: 1 drop Vital Signs 10/31/16 10/31/16 10/31/16 10:48 16:52 18:52 Temperature Pulse Rate Respiratory 18 18 16 Rate Blood Pressure (mmHg) O2 Sat by Pulse Oximetry 10/31/16 10/31/16 10/31/16 20:00 20:49 20:50 Temperature Pulse Rate Respiratory 16 16 16 Rate Blood Pressure (mmHg) O2 Sat by Pulse Oximetry 11/01/16 11/01/16 11/01/16 07:18 08:44 08:49 Temperature 98.2 F Pulse Rate 77 Respiratory 18 18 18 Rate Blood Pressure 131/55 (mmHg) O2 Sat by Pulse 100 Oximetry Oxygen Devices in Use Now: None Appearance: Elderly, F, sitting in chair in [place] Eyes: No Scleral Icterus Ears/Nose/Mouth/Throat: Mucous Membranes Moist Neck: - - Well-healing surgical wound along cervical spine Respiratory: Symmetrical Chest Expansion and Respiratory Effort, Clear to Auscultation Cardiovascular: NL Sounds; No Murmurs; No JVD, RRR Abdominal: NL Sounds; No Tenderness; No Distention Lymphatic: No Cervical Adenopathy Extremities: No Edema Neurological: Alert and Oriented x 3 Result Diagrams: 11/01/16 05:30 11/01/16 05:30 Assess/Plan/Problems-Billing Assessment: Mrs. Peralta is a 76yo F with PMH of type 2 DM, HLD, HTN who was admitted with cervical spine epidural abscess s/p surgical decompression and lumbar spine epidural abscess undergoing medical treatment. - Patient Problems (1) MSSA (methicillin susceptible Staphylococcus aureus) septicemia Current Visit: Yes Comment: - With cervical and lumbar epidural abscess. - Continue Oxacillin #24/. - Check weekly CBC, CMP, CRP. (2) Type 2 diabetes mellitus Current Visit: Yes Comment: - Good control. Continue Lantus and HISS - Patient educated about importance of carbohydrate counting. (3) HTN (hypertension) Current Visit: Yes Comment: - Controlled. - Continue Atenolol and Amlodipine. (4) DVT prophylaxis Current Visit: Yes Comment: - SQ heparin. Status and Disposition: Inpatient.
[2016-11-01] MEDS: Atorvastatin* 40 MG TAB PO SCH (21:09)
[2016-11-01] MEDS: Insulin GLARGINE(*) 1 UNITS UNIT SUBCUT SCH (21:11)
[2016-11-02] MEDS: Oxacillin(*) 2 GM in NS 0.9% 100 ML* 100 ML IVPB SCH ×6 (00:20→21:12)
[2016-11-02] MEDS: Heparin VIAL(*) 5000 UNITS/ML VIAL (FIVE THOUSAND) SUBCUT SCH ×3 (05:50→21:32)
[2016-11-02] MEDS: oxyCODONE/Acetamin 5/325 MG* TAB PO PRN ×3 (06:52→19:39)
[2016-11-02] MEDS: oxyCODONE SR TAB(*) 10 MG TAB.SR PO SCH ×2 (09:19→21:11)
[2016-11-02] MEDS: amLODIPine TAB* 5 MG PO SCH (09:20)
[2016-11-02] MEDS: Docusate CAP* 100 MG PO SCH ×2 (09:20→21:12)
[2016-11-02] MEDS: Atenolol TAB* 50 MG PO SCH (09:20)
[2016-11-02] MEDS: Polyethylene Glycol 3350* 17 GM PACKET PO SCH ×2 (09:21→21:14)
[2016-11-02] MEDS: Insulin LISPRO* 1 UNITS UNIT SUBCUT SCH ×7 (09:21→21:13)
[2016-11-02] MEDS: Timolol 0.5% OPTH.SOL* BTL BOTH EYES SCH ×2 (09:26→21:42)
--- NOTE | 2016-11-02 11:01 | PN ---
Progress Note - Progress Note SOAP: Subjective: DOS: 11/02/16 CC: epidural abscess 76 yo woman with Cervical and lumbar spine epidural abscess, s/p decompression of cervical abscess. Neck pain better, sutures out. No fever, rash, or diarrhea. Objective: [] Selected Entries 10/28/16 10/29/16 11/02/16 07:23 07:19 07:21 Temperature 36.3 C 36.4 C Pulse Rate 77 Respiratory 16 16 Rate Blood Pressure 138/52 (mmHg) O2 Sat by Pulse 100 Oximetry Gen:AAOx3 HEENT:PERRL, MMM Neck:no mass Heart:no murmur, RRR Lungs:CTA BL Abd:+BS NTND soft Skin: no rash MSK: c spine incision intact no erythema; no L spine tenderness Laboratory Tests 11/01/16 11/01/16 05:30 05:30 WBC 6.3 Plt Count 392 Creatinine 0.68 C-Reactive Protein 17.49 H Assessment: 1. cervical and lumbar epidural abscess due to MSSA 2. MSSA bacteremia, cleared 3. Diabetes, T2 4. culinary manager abx 5. neck pain 6. elevated CRP Plan: 1. Day oxacillin 2 gm IV Q4hrs, tolerating it well, cbc, cmp, crp ordered for 11/08 2. tyelnol/oxycodone with scheduled oxycontin 3. PT
[2016-11-02] MEDS: Atorvastatin* 40 MG TAB PO SCH (21:11)
[2016-11-02] MEDS: Insulin GLARGINE(*) 1 UNITS UNIT SUBCUT SCH (21:13)
[2016-11-03] MEDS: Oxacillin(*) 2 GM in NS 0.9% 100 ML* 100 ML IVPB SCH ×6 (00:20→20:57)
[2016-11-03] MEDS: Heparin VIAL(*) 5000 UNITS/ML VIAL (FIVE THOUSAND) SUBCUT SCH ×3 (06:55→21:25)
[2016-11-03] MEDS: Atenolol TAB* 50 MG PO SCH (08:00)
[2016-11-03] MEDS: amLODIPine TAB* 5 MG PO SCH (08:00)
[2016-11-03] MEDS: oxyCODONE SR TAB(*) 10 MG TAB.SR PO SCH ×2 (08:00→21:25)
[2016-11-03] MEDS: oxyCODONE/Acetamin 5/325 MG* TAB PO PRN ×2 (08:01→18:35)
[2016-11-03] MEDS: Docusate CAP* 100 MG PO SCH ×2 (08:01→21:10)
[2016-11-03] MEDS: Polyethylene Glycol 3350* 17 GM PACKET PO SCH ×2 (08:01→21:10)
[2016-11-03] MEDS: Timolol 0.5% OPTH.SOL* BTL BOTH EYES SCH ×2 (08:15→21:25)
[2016-11-03] MEDS: Insulin LISPRO* 1 UNITS UNIT SUBCUT SCH ×7 (08:46→21:10)
[2016-11-03] MEDS: Atorvastatin* 40 MG TAB PO SCH (21:24)
[2016-11-03] MEDS: Insulin GLARGINE(*) 1 UNITS UNIT SUBCUT SCH (21:26)
[2016-11-04] MEDS: Oxacillin(*) 2 GM in NS 0.9% 100 ML* 100 ML IVPB SCH ×6 (00:39→20:23)
[2016-11-04] MEDS: oxyCODONE/Acetamin 5/325 MG* TAB PO PRN ×3 (06:21→20:25)
[2016-11-04] MEDS: Heparin VIAL(*) 5000 UNITS/ML VIAL (FIVE THOUSAND) SUBCUT SCH ×3 (08:38→21:50)
[2016-11-04] MEDS: Atenolol TAB* 50 MG PO SCH (08:39)
[2016-11-04] MEDS: oxyCODONE SR TAB(*) 10 MG TAB.SR PO SCH ×2 (08:39→21:17)
[2016-11-04] MEDS: Insulin LISPRO* 1 UNITS UNIT SUBCUT SCH ×7 (08:39→21:17)
[2016-11-04] MEDS: amLODIPine TAB* 5 MG PO SCH (08:40)
[2016-11-04] MEDS: Docusate CAP* 100 MG PO SCH ×2 (08:46→21:49)
[2016-11-04] MEDS: Polyethylene Glycol 3350* 17 GM PACKET PO SCH ×2 (08:46→20:29)
[2016-11-04] MEDS: Timolol 0.5% OPTH.SOL* BTL BOTH EYES SCH ×2 (09:36→21:51)
[2016-11-04] MEDS: Atorvastatin* 40 MG TAB PO SCH (20:25)
[2016-11-04] MEDS: Insulin GLARGINE(*) 1 UNITS UNIT SUBCUT SCH (21:17)
[2016-11-05] MEDS: Oxacillin(*) 2 GM in NS 0.9% 100 ML* 100 ML IVPB SCH ×6 (00:23→21:09)
[2016-11-05] MEDS: Heparin VIAL(*) 5000 UNITS/ML VIAL (FIVE THOUSAND) SUBCUT SCH ×3 (05:39→21:36)
[2016-11-05] MEDS: Polyethylene Glycol 3350* 17 GM PACKET PO SCH ×2 (08:40→21:35)
[2016-11-05] MEDS: amLODIPine TAB* 5 MG PO SCH (08:41)
[2016-11-05] MEDS: oxyCODONE SR TAB(*) 10 MG TAB.SR PO SCH ×2 (08:41→21:35)
[2016-11-05] MEDS: Timolol 0.5% OPTH.SOL* BTL BOTH EYES SCH ×2 (08:41→21:36)
[2016-11-05] MEDS: Docusate CAP* 100 MG PO SCH ×2 (08:41→21:35)
[2016-11-05] MEDS: Atenolol TAB* 50 MG PO SCH (08:42)
[2016-11-05] MEDS: Insulin LISPRO* 1 UNITS UNIT SUBCUT SCH ×7 (08:42→21:34)
[2016-11-05] MEDS: oxyCODONE/Acetamin 5/325 MG* TAB PO PRN (12:24)
[2016-11-05] MEDS: Insulin GLARGINE(*) 1 UNITS UNIT SUBCUT SCH (21:33)
[2016-11-05] MEDS: Atorvastatin* 40 MG TAB PO SCH (21:35)
[2016-11-06] MEDS: Oxacillin(*) 2 GM in NS 0.9% 100 ML* 100 ML IVPB SCH ×6 (01:03→20:47)
[2016-11-06] MEDS: Heparin VIAL(*) 5000 UNITS/ML VIAL (FIVE THOUSAND) SUBCUT SCH ×3 (06:00→22:03)
[2016-11-06] MEDS: Insulin LISPRO* 1 UNITS UNIT SUBCUT SCH ×7 (08:01→22:14)
[2016-11-06] MEDS: Atenolol TAB* 50 MG PO SCH (08:09)
[2016-11-06] MEDS: Docusate CAP* 100 MG PO SCH ×2 (08:09→22:06)
[2016-11-06] MEDS: oxyCODONE SR TAB(*) 10 MG TAB.SR PO SCH ×2 (08:09→22:04)
[2016-11-06] MEDS: amLODIPine TAB* 5 MG PO SCH (08:09)
[2016-11-06] MEDS: Polyethylene Glycol 3350* 17 GM PACKET PO SCH ×2 (08:10→22:03)
[2016-11-06] MEDS: Timolol 0.5% OPTH.SOL* BTL BOTH EYES SCH ×2 (08:11→22:14)
--- NOTE | 2016-11-06 09:47 | PN ---
Subjective Date of Service: 11/06/16 Interval History: HOSPITALIST PROGRESS NOTE Patient seen and examined at bedside. Offers no new complaints, pain is controlled. Family History: Unchanged from Admission Social History: Unchanged from Admission Past Medical History: Unchanged from Admission Objective Active Medications: Amlodipine Besylate (Norvasc Tab*) 10 mg PO DAILY [facility] Last Admin: 11/06/16 08:09 Dose: 10 mg Atenolol (Tenormin Tab*) 50 mg PO DAILY [facility] Last Admin: 11/06/16 08:09 Dose: 50 mg Atorvastatin Calcium (Lipitor*) 40 mg PO 2100 [facility] Last Admin: 11/05/16 21:35 Dose: 40 mg Cyclobenzaprine HCl (Flexeril Tab*) 10 mg PO TID PRN PRN Reason: SPASMS Last Admin: 10/28/16 08:44 Dose: 10 mg Dextrose (D50w Syringe*) 12.5 gm IV PUSH .FOR FS < 60 - SS PRN PRN Reason: FS < 60 Docusate Sodium (Colace Cap*) 100 mg PO BID [facility] Last Admin: 11/06/16 08:09 Dose: 100 mg Heparin Sodium (Porcine) (Heparin Flush Picc/Ml/Cvc(*)) 1 ml FLUSH 0600,1800 [facility] PRN Reason: Protocol Last Admin: 11/06/16 09:26 Dose: 1 ml Heparin Sodium (Porcine) (Heparin Vial(*)) 5,000 units SUBCUT Q8HR [facility] Last Admin: 11/06/16 06:00 Dose: 5,000 units Oxacillin Sodium 2 gm/ Sodium (Chloride) 100 mls @ 200 mls/hr IVPB Q4H [facility] Last Admin: 11/06/16 08:10 Dose: 200 mls/hr Insulin Glargine (Lantus(*)) 30 units SUBCUT Q24H [facility] Last Admin: 11/05/16 21:33 Dose: 30 units Insulin Human Lispro (Humalog*) 0 units SUBCUT ACHS [facility] PRN Reason: Protocol Last Admin: 11/06/16 08:01 Dose: Not Given Insulin Human Lispro (Humalog*) 0 units SUBCUT AC [facility] PRN Reason: Protocol Last Admin: 11/06/16 08:10 Dose: 6 units Oxycodone HCl (Oxycontin(*)) 10 mg PO Q12HR [facility] Last Admin: 11/06/16 08:09 Dose: 10 mg Oxycodone/Acetaminophen (Percocet 5/325 Tab*) 2 tab PO Q4H PRN PRN Reason: Pain Last Admin: 11/05/16 12:24 Dose: 2 tab Polyethylene Glycol/Electrolytes (Miralax*) 17 gm PO 0800,2100 [facility] Last Admin: 11/06/16 08:10 Dose: 17 gm Senna (Senokot Tab*) 1 tab PO BEDTIME PRN PRN Reason: CONSTIPATION Last Admin: 10/23/16 20:08 Dose: 1 tab Timolol Maleate (Timoptic 0.5% Opth*) 1 drop BOTH EYES BID [facility] Last Admin: 11/06/16 08:11 Dose: 1 drop Vital Signs 11/06/16 11/06/16 11/06/16 07:13 08:00 08:09 Temperature 97.4 F Pulse Rate 76 Respiratory 16 16 16 Rate Blood Pressure 132/52 (mmHg) O2 Sat by Pulse 100 Oximetry Oxygen Devices in Use Now: None Appearance: Elderly lady sitting up in a chair in [facility]. Eyes: No Scleral Icterus Ears/Nose/Mouth/Throat: Mucous Membranes Moist Neck: Trachea Midline Respiratory: Symmetrical Chest Expansion and Respiratory Effort, Clear to Auscultation Cardiovascular: RRR - Normal S1 and S2 Abdominal: NL Sounds; No Tenderness; No Distention Extremities: No Edema Neurological: Alert and Oriented x 3, NL Muscle Strength and Tone Lines/Tubes/Other Access: Clean, Dry and Intact PICC Line Nutrition: Taking PO's Result Diagrams: 11/01/16 05:30 11/01/16 05:30 Assess/Plan/Problems-Billing Assessment: Mrs. Peralta is a 76yo F with PMH of type 2 DM, HLD, HTN who was admitted with cervical spine epidural abscess s/p surgical decompression and lumbar spine epidural abscess undergoing medical treatment. - Patient Problems (1) MSSA (methicillin susceptible Staphylococcus aureus) septicemia Comment: - With cervical and lumbar epidural abscess. - Continue Oxacillin #29/56. - Check weekly CBC, CMP, CRP. (2) Type 2 diabetes mellitus Comment: - Good control. Continue Lantus and HISS - Patient educated about importance of carbohydrate counting. (3) HTN (hypertension) Comment: - Controlled. - Continue Atenolol and Amlodipine. (4) DVT prophylaxis Comment: - SQ heparin. Status and Disposition: Inpatient.
[2016-11-06] MEDS: oxyCODONE/Acetamin 5/325 MG* TAB PO PRN ×2 (14:13→22:15)
[2016-11-06] MEDS: Atorvastatin* 40 MG TAB PO SCH (22:03)
[2016-11-06] MEDS: Insulin GLARGINE(*) 1 UNITS UNIT SUBCUT SCH (22:07)
[2016-11-07] MEDS: Oxacillin(*) 2 GM in NS 0.9% 100 ML* 100 ML IVPB SCH ×6 (00:08→20:14)
[2016-11-07] MEDS: Heparin VIAL(*) 5000 UNITS/ML VIAL (FIVE THOUSAND) SUBCUT SCH ×3 (05:36→20:38)
[2016-11-07 05:46] LABS: Hematocrit 31 % (35-47); Hemoglobin 9.8 g/dl (12.0-16.0); Mean Corpuscular HGB Conc 32 g/dl (31-36); Mean Corpuscular Hemoglobin 26 pg (27-31); Mean Corpuscular Volume 82 fL (80-97); Mean Platelet Volume 7 um3 (7.4-10.4); Red Blood Count 3.77 10^6/ul (4.0-5.4); Red Cell Distribution Width 18 % (10.5-15); White Blood Count 6.8 10^3/ul (3.5-10.8)
[2016-11-07 06:03] LABS: Albumin 3.2 g/dL (3.2-5.2); BUN/Creatinine Ratio 23.2 (8-20); C Reactive Protein 9.66 mg/L (< 5.00); Calcium 9.1 mg/dL (8.6-10.3); EGFR African American 106.7 (>60); EGFR Non-African American 82.9 (>60); Potassium 3.9 mmol/L (3.5-5.0); Total Bilirubin 0.2 mg/dL (0.2-1.0); Total Protein 7.2 g/dL (6.4-8.9)
[2016-11-07] MEDS: Polyethylene Glycol 3350* 17 GM PACKET PO SCH ×2 (08:48→20:10)
[2016-11-07] MEDS: Insulin LISPRO* 1 UNITS UNIT SUBCUT SCH ×7 (08:48→20:36)
[2016-11-07] MEDS: oxyCODONE SR TAB(*) 10 MG TAB.SR PO SCH ×2 (08:49→20:10)
[2016-11-07] MEDS: Docusate CAP* 100 MG PO SCH ×2 (08:49→20:10)
[2016-11-07] MEDS: Atenolol TAB* 50 MG PO SCH (08:49)
[2016-11-07] MEDS: Timolol 0.5% OPTH.SOL* BTL BOTH EYES SCH ×2 (08:49→20:15)
[2016-11-07] MEDS: amLODIPine TAB* 5 MG PO SCH (08:49)
[2016-11-07] MEDS: oxyCODONE/Acetamin 5/325 MG* TAB PO PRN (17:50)
[2016-11-07] MEDS: Atorvastatin* 40 MG TAB PO SCH (20:10)
[2016-11-07] MEDS: Insulin GLARGINE(*) 1 UNITS UNIT SUBCUT SCH (20:37)
[2016-11-08] MEDS: Oxacillin(*) 2 GM in NS 0.9% 100 ML* 100 ML IVPB SCH ×6 (00:11→20:31)
[2016-11-08] MEDS: Heparin VIAL(*) 5000 UNITS/ML VIAL (FIVE THOUSAND) SUBCUT SCH ×3 (06:00→21:20)
[2016-11-08] MEDS: Insulin LISPRO* 1 UNITS UNIT SUBCUT SCH ×7 (07:56→21:19)
[2016-11-08] MEDS: oxyCODONE SR TAB(*) 10 MG TAB.SR PO SCH ×2 (09:10→21:19)
[2016-11-08] MEDS: Docusate CAP* 100 MG PO SCH ×2 (09:10→21:18)
[2016-11-08] MEDS: amLODIPine TAB* 5 MG PO SCH (09:10)
[2016-11-08] MEDS: Atenolol TAB* 50 MG PO SCH (09:10)
[2016-11-08] MEDS: oxyCODONE/Acetamin 5/325 MG* TAB PO PRN ×2 (09:11→19:20)
[2016-11-08] MEDS: Polyethylene Glycol 3350* 17 GM PACKET PO SCH ×2 (09:17→21:20)
[2016-11-08] MEDS: Timolol 0.5% OPTH.SOL* BTL BOTH EYES SCH (09:19)
[2016-11-08] MEDS: Insulin GLARGINE(*) 1 UNITS UNIT SUBCUT SCH (21:18)
[2016-11-08] MEDS: Atorvastatin* 40 MG TAB PO SCH (21:18)
[2016-11-09] MEDS: Timolol 0.5% OPTH.SOL* BTL BOTH EYES SCH ×4 (00:02→22:15)
[2016-11-09] MEDS: Oxacillin(*) 2 GM in NS 0.9% 100 ML* 100 ML IVPB SCH ×6 (00:02→21:10)
[2016-11-09] MEDS: Heparin VIAL(*) 5000 UNITS/ML VIAL (FIVE THOUSAND) SUBCUT SCH ×3 (04:53→21:12)
[2016-11-09] MEDS: Insulin LISPRO* 1 UNITS UNIT SUBCUT SCH ×7 (07:31→21:37)
[2016-11-09] MEDS: oxyCODONE SR TAB(*) 10 MG TAB.SR PO SCH ×2 (08:48→21:10)
[2016-11-09] MEDS: Polyethylene Glycol 3350* 17 GM PACKET PO SCH ×2 (08:49→21:38)
[2016-11-09] MEDS: Docusate CAP* 100 MG PO SCH ×2 (08:49→21:10)
[2016-11-09] MEDS: amLODIPine TAB* 5 MG PO SCH (08:49)
[2016-11-09] MEDS: Atenolol TAB* 50 MG PO SCH (08:49)
[2016-11-09] MEDS: oxyCODONE/Acetamin 5/325 MG* TAB PO PRN (08:49)
[2016-11-09] MEDS: Atorvastatin* 40 MG TAB PO SCH (21:10)
[2016-11-09] MEDS: Insulin GLARGINE(*) 1 UNITS UNIT SUBCUT SCH (21:37)
[2016-11-10] MEDS: Oxacillin(*) 2 GM in NS 0.9% 100 ML* 100 ML IVPB SCH ×6 (00:16→20:26)
[2016-11-10] MEDS: Heparin VIAL(*) 5000 UNITS/ML VIAL (FIVE THOUSAND) SUBCUT SCH ×3 (05:41→21:36)
[2016-11-10] MEDS: Insulin LISPRO* 1 UNITS UNIT SUBCUT SCH ×8 (08:01→21:45)
[2016-11-10] MEDS: Polyethylene Glycol 3350* 17 GM PACKET PO SCH ×2 (08:43→21:44)
[2016-11-10] MEDS: amLODIPine TAB* 5 MG PO SCH (08:44)
[2016-11-10] MEDS: Docusate CAP* 100 MG PO SCH ×2 (08:44→21:43)
[2016-11-10] MEDS: oxyCODONE SR TAB(*) 10 MG TAB.SR PO SCH ×2 (08:44→21:43)
[2016-11-10] MEDS: Atenolol TAB* 50 MG PO SCH (08:44)
[2016-11-10] MEDS: Timolol 0.5% OPTH.SOL* BTL BOTH EYES SCH ×2 (08:46→21:49)
--- NOTE | 2016-11-10 15:19 | PN ---
Subjective Date of Service: 11/10/16 Interval History: . On service note. I met the patient at the bedside while she was visiting with her daughter and granddaughter. Answered general questions about need for ongoing IV antibiotics. patient in good spirits; walking and eating normally. Reviewed patient on SWING status -- patient understands and knows she can ask for a physician if she has any worrisome symptoms. . Family History: Unchanged from Admission Social History: Unchanged from Admission Past Medical History: Unchanged from Admission Objective Active Medications: . Amlodipine Besylate (Norvasc Tab*) 10 mg PO DAILY [facility] Last Admin: 11/10/16 08:44 Dose: 10 mg Atenolol (Tenormin Tab*) 50 mg PO DAILY [facility] Last Admin: 11/10/16 08:44 Dose: 50 mg Atorvastatin Calcium (Lipitor*) 40 mg PO 2100 [facility] Last Admin: 11/09/16 21:10 Dose: 40 mg Cyclobenzaprine HCl (Flexeril Tab*) 10 mg PO TID PRN PRN Reason: SPASMS Last Admin: 10/28/16 08:44 Dose: 10 mg Dextrose (D50w Syringe*) 12.5 gm IV PUSH .FOR FS < 60 - SS PRN PRN Reason: FS < 60 Docusate Sodium (Colace Cap*) 100 mg PO BID [facility] Last Admin: 11/10/16 08:44 Dose: 100 mg Heparin Sodium (Porcine) (Heparin Flush Picc/Ml/Cvc(*)) 1 ml FLUSH 0600,1800 [facility] PRN Reason: Protocol Last Admin: 11/10/16 05:41 Dose: 1 ml Heparin Sodium (Porcine) (Heparin Vial(*)) 5,000 units SUBCUT Q8HR [facility] Last Admin: 11/10/16 12:34 Dose: Not Given Oxacillin Sodium 2 gm/ Sodium (Chloride) 100 mls @ 200 mls/hr IVPB Q4H [facility] Last Admin: 11/10/16 12:31 Dose: 200 mls/hr Insulin Glargine (Lantus(*)) 30 units SUBCUT Q24H [facility] Last Admin: 11/09/16 21:37 Dose: 30 units Insulin Human Lispro (Humalog*) 0 units SUBCUT ACHS [facility] PRN Reason: Protocol Last Admin: 11/10/16 12:31 Dose: 4 units Insulin Human Lispro (Humalog*) 0 units SUBCUT AC [facility] PRN Reason: Protocol Last Admin: 11/10/16 12:34 Dose: 5 units Oxycodone HCl (Oxycontin(*)) 10 mg PO Q12HR [facility] Last Admin: 11/10/16 08:44 Dose: 10 mg Oxycodone/Acetaminophen (Percocet 5/325 Tab*) 2 tab PO Q4H PRN PRN Reason: Pain Last Admin: 11/09/16 08:49 Dose: 2 tab Polyethylene Glycol/Electrolytes (Miralax*) 17 gm PO 0800,2100 [facility] Last Admin: 11/10/16 08:43 Dose: 17 gm Senna (Senokot Tab*) 1 tab PO BEDTIME PRN PRN Reason: CONSTIPATION Last Admin: 10/23/16 20:08 Dose: 1 tab Timolol Maleate (Timoptic 0.5% Opth*) 1 drop BOTH EYES BID [facility] Last Admin: 11/10/16 08:46 Dose: 1 drop . Vital Signs 11/09/16 11/09/16 11/09/16 20:00 21:10 23:10 Temperature Pulse Rate Respiratory 16 16 16 Rate Blood Pressure (mmHg) O2 Sat by Pulse Oximetry 11/10/16 11/10/16 11/10/16 07:43 08:00 08:44 Temperature 97.6 F Pulse Rate 75 Respiratory 12 16 16 Rate Blood Pressure 153/48 (mmHg) O2 Sat by Pulse 100 Oximetry Oxygen Devices in Use Now: Nasal Cannula Appearance: NAD Eyes: No Scleral Icterus Ears/Nose/Mouth/Throat: Clear Oropharnyx Neck: NL Appearance and Movements; NL JVP Respiratory: Symmetrical Chest Expansion and Respiratory Effort Cardiovascular: NL Sounds; No Murmurs; No JVD Abdominal: NL Sounds; No Tenderness; No Distention Lymphatic: No Cervical Adenopathy Extremities: No Edema Skin: No Rash or Ulcers Neurological: Alert and Oriented x 3 Lines/Tubes/Other Access: Clean, Dry and Intact Peripheral IV Nutrition: Taking PO's Result Diagrams: 11/07/16 04:02 11/07/16 04:02 Assess/Plan/Problems-Billing . Assessment: Mrs. Peralta is a 76 yo F with PMH of type 2 DM, HLD, HTN who was admitted with cervical spine epidural abscess s/p surgical decompression Lumbar spine epidural abscess undergoing medical treatment. - Patient Problems (1) Epidural abscess Current Visit: No Status: Acute Priority: High Code(s): G06.2 - EXTRADURAL AND SUBDURAL ABSCESS, UNSPECIFIED Comment: - S/p surgical decompression 10/09/16 for cervical spine infection - Lumbar MRI on 10/12 showed another area with osteodiskitis and small epidural abscess, tx medically. - Neurosurgery and ID input appreciated. - Continue Naficilin IVQ4H. - As per d/w Dr. Song , she will need it for approx 4 weeks and there is no good alternative for a less frequent dosing. - Due to that pt will not be able to go to [facility] because [facility] will not accept frequency > than BID, patient made SWING. (2) HTN (hypertension) Current Visit: Yes Status: Acute Priority: Medium Code(s): I10 - ESSENTIAL (PRIMARY) HYPERTENSION Comment: - Controlled. - Continue Atenolol and Amlodipine. (3) MSSA (methicillin susceptible Staphylococcus aureus) septicemia Current Visit: Yes Status: Acute Priority: High Code(s): A41.01 - SEPSIS DUE TO METHICILLIN SUSCEPTIBLE STAPHYLOCOCCUS AUREUS Comment: - With cervical and lumbar epidural abscess. - Continue Oxacillin for 56 days total; last day 12/02/15. - Check weekly CBC, CMP, CRP. (4) Type 2 diabetes mellitus Current Visit: Yes Status: Chronic Comment: - Good control. - Continue Lantus and HISS - Patient educated about importance of carbohydrate counting. (5) Acute blood loss anemia Current Visit: No Status: Acute Priority: Medium Code(s): D62 - ACUTE POSTHEMORRHAGIC ANEMIA Comment: - Hct stable (6) Acute hypoxemic respiratory failure Current Visit: No Status: Resolved Priority: High Code(s): J96.01 - ACUTE RESPIRATORY FAILURE WITH HYPOXIA Comment: - Transferred to ICU after surgery due to hypoxemia - ALI vs laryngeal edema, now stable on floor - Decadron stopped, oxygen weaned off (7) DVT prophylaxis Current Visit: Yes Status: Acute Priority: High Code(s): QLW8179 - Comment: - SQ heparin. Status and Disposition: Inpatient.
[2016-11-10] MEDS: Atorvastatin* 40 MG TAB PO SCH (21:43)
[2016-11-10] MEDS: Insulin GLARGINE(*) 1 UNITS UNIT SUBCUT SCH (21:44)
[2016-11-10] MEDS: oxyCODONE/Acetamin 5/325 MG* TAB PO PRN (21:49)
[2016-11-11] MEDS: Oxacillin(*) 2 GM in NS 0.9% 100 ML* 100 ML IVPB SCH ×6 (01:10→20:14)
[2016-11-11] MEDS: Heparin VIAL(*) 5000 UNITS/ML VIAL (FIVE THOUSAND) SUBCUT SCH ×3 (04:55→21:08)
[2016-11-11 05:14] LABS: Hematocrit 30 % (35-47); Hemoglobin 9.7 g/dl (12.0-16.0); Mean Corpuscular HGB Conc 32 g/dl (31-36); Mean Corpuscular Hemoglobin 26 pg (27-31); Mean Corpuscular Volume 81 fL (80-97); Mean Platelet Volume 7 um3 (7.4-10.4); Red Blood Count 3.69 10^6/ul (4.0-5.4); Red Cell Distribution Width 18 % (10.5-15); White Blood Count 7.5 10^3/ul (3.5-10.8)
[2016-11-11 05:30] LABS: Albumin 3.2 g/dL (3.2-5.2); BUN/Creatinine Ratio 19.4 (8-20); Calcium 9.1 mg/dL (8.6-10.3); EGFR African American 110.4 (>60); EGFR Non-African American 85.8 (>60); Globulin 3.6 g/dL (2-4); Potassium 3.9 mmol/L (3.5-5.0); Total Bilirubin 0.2 mg/dL (0.2-1.0); Total Protein 6.8 g/dL (6.4-8.9)
[2016-11-11] MEDS: Insulin LISPRO* 1 UNITS UNIT SUBCUT SCH ×7 (07:35→21:26)
[2016-11-11] MEDS: Polyethylene Glycol 3350* 17 GM PACKET PO SCH ×2 (08:16→21:26)
[2016-11-11] MEDS: oxyCODONE SR TAB(*) 10 MG TAB.SR PO SCH ×2 (08:16→21:26)
[2016-11-11] MEDS: amLODIPine TAB* 5 MG PO SCH (08:16)
[2016-11-11] MEDS: Atenolol TAB* 50 MG PO SCH (08:16)
[2016-11-11] MEDS: Docusate CAP* 100 MG PO SCH ×2 (08:16→21:26)
[2016-11-11] MEDS: Timolol 0.5% OPTH.SOL* BTL BOTH EYES SCH ×2 (08:18→21:27)
[2016-11-11] MEDS: oxyCODONE/Acetamin 5/325 MG* TAB PO PRN (20:13)
[2016-11-11] MEDS: Atorvastatin* 40 MG TAB PO SCH (21:26)
[2016-11-11] MEDS: Insulin GLARGINE(*) 1 UNITS UNIT SUBCUT SCH (21:27)
[2016-11-12] MEDS: Oxacillin(*) 2 GM in NS 0.9% 100 ML* 100 ML IVPB SCH ×6 (01:39→20:19)
[2016-11-12] MEDS: Heparin VIAL(*) 5000 UNITS/ML VIAL (FIVE THOUSAND) SUBCUT SCH ×3 (06:21→21:26)
[2016-11-12] MEDS: Insulin LISPRO* 1 UNITS UNIT SUBCUT SCH ×7 (08:05→21:29)
[2016-11-12] MEDS: Timolol 0.5% OPTH.SOL* BTL BOTH EYES SCH ×2 (08:34→21:29)
[2016-11-12] MEDS: Polyethylene Glycol 3350* 17 GM PACKET PO SCH ×2 (08:34→21:29)
[2016-11-12] MEDS: oxyCODONE SR TAB(*) 10 MG TAB.SR PO SCH ×2 (08:34→21:30)
[2016-11-12] MEDS: Atenolol TAB* 50 MG PO SCH (08:37)
[2016-11-12] MEDS: amLODIPine TAB* 5 MG PO SCH (08:37)
[2016-11-12] MEDS: Docusate CAP* 100 MG PO SCH ×2 (08:37→21:29)
[2016-11-12] MEDS: oxyCODONE/Acetamin 5/325 MG* TAB PO PRN (20:25)
[2016-11-12] MEDS: Atorvastatin* 40 MG TAB PO SCH (21:29)
[2016-11-12] MEDS: Insulin GLARGINE(*) 1 UNITS UNIT SUBCUT SCH (21:30)
[2016-11-13] MEDS: Oxacillin(*) 2 GM in NS 0.9% 100 ML* 100 ML IVPB SCH ×6 (00:52→21:04)
[2016-11-13] MEDS: Heparin VIAL(*) 5000 UNITS/ML VIAL (FIVE THOUSAND) SUBCUT SCH ×3 (05:50→21:09)
[2016-11-13] MEDS: amLODIPine TAB* 5 MG PO SCH (08:39)
[2016-11-13] MEDS: Docusate CAP* 100 MG PO SCH ×2 (08:40→21:08)
[2016-11-13] MEDS: oxyCODONE SR TAB(*) 10 MG TAB.SR PO SCH (08:40)
[2016-11-13] MEDS: Atenolol TAB* 50 MG PO SCH (08:41)
[2016-11-13] MEDS: Polyethylene Glycol 3350* 17 GM PACKET PO SCH ×2 (08:41→21:07)
[2016-11-13] MEDS: Insulin LISPRO* 1 UNITS UNIT SUBCUT SCH ×7 (08:52→21:08)
[2016-11-13] MEDS: Timolol 0.5% OPTH.SOL* BTL BOTH EYES SCH ×2 (13:00→21:11)
[2016-11-13] MEDS ORDERED: oxyCODONE/Acetamin 5/325 MG* TAB PO ONE (20:11)
[2016-11-13] MEDS: Insulin GLARGINE(*) 1 UNITS UNIT SUBCUT SCH (21:06)
[2016-11-13] MEDS: Atorvastatin* 40 MG TAB PO SCH (21:07)
[2016-11-14] MEDS: Oxacillin(*) 2 GM in NS 0.9% 100 ML* 100 ML IVPB SCH ×6 (00:40→20:54)
[2016-11-14] MEDS: Heparin VIAL(*) 5000 UNITS/ML VIAL (FIVE THOUSAND) SUBCUT SCH ×3 (06:08→21:16)
[2016-11-14] MEDS: Insulin LISPRO* 1 UNITS UNIT SUBCUT SCH ×7 (07:54→22:11)
[2016-11-14] MEDS: Polyethylene Glycol 3350* 17 GM PACKET PO SCH ×2 (09:16→21:58)
[2016-11-14] MEDS: Timolol 0.5% OPTH.SOL* BTL BOTH EYES SCH ×2 (09:18→21:16)
[2016-11-14] MEDS: Atenolol TAB* 50 MG PO SCH (09:19)
[2016-11-14] MEDS: amLODIPine TAB* 5 MG PO SCH (09:19)
[2016-11-14] MEDS: Docusate CAP* 100 MG PO SCH ×2 (09:19→21:13)
[2016-11-14] MEDS: Atorvastatin* 40 MG TAB PO SCH (21:14)
[2016-11-14] MEDS: oxyCODONE/Acetamin 5/325 MG* TAB PO PRN (21:14)
[2016-11-14] MEDS: Insulin GLARGINE(*) 1 UNITS UNIT SUBCUT SCH (22:13)
[2016-11-15] MEDS: Oxacillin(*) 2 GM in NS 0.9% 100 ML* 100 ML IVPB SCH ×6 (00:37→21:08)
[2016-11-15] MEDS: Heparin VIAL(*) 5000 UNITS/ML VIAL (FIVE THOUSAND) SUBCUT SCH ×3 (05:03→22:30)
[2016-11-15] MEDS: Insulin LISPRO* 1 UNITS UNIT SUBCUT SCH ×7 (07:37→23:28)
[2016-11-15] MEDS: Polyethylene Glycol 3350* 17 GM PACKET PO SCH ×2 (08:59→22:30)
[2016-11-15] MEDS: Docusate CAP* 100 MG PO SCH ×2 (08:59→22:30)
[2016-11-15] MEDS: amLODIPine TAB* 5 MG PO SCH (08:59)
[2016-11-15] MEDS: Atenolol TAB* 50 MG PO SCH (08:59)
[2016-11-15] MEDS: Timolol 0.5% OPTH.SOL* BTL BOTH EYES SCH ×2 (09:00→22:30)
--- NOTE | 2016-11-15 10:06 | PN ---
Progress Note - Progress Note SOAP: Subjective: DOS: 11/15/15 CC: epidural abscess 76 yo woman with Cervical and lumbar spine epidural abscess, s/p decompression of cervical abscess. Neck pain continues to improve, now only bothers lateral to her incision which is healed. No fever, rash, or diarrhea. No problems with PICC. Objective: [] Selected Entries 11/02/16 07:21 Temperature 36.4 C Pulse Rate 77 Respiratory 16 Rate Blood Pressure 138/52 (mmHg) O2 Sat by Pulse 100 Oximetry Gen:AAOx3 HEENT:PERRL, MMM Neck:no mass Heart:no murmur, RRR Lungs:CTA BL Abd:+BS NTND soft Skin: no rash MSK: c spine incision intact no erythema; no L spine tenderness or paraspinal tenderness Assessment: 1. cervical and lumbar epidural abscess due to MSSA 2. MSSA bacteremia, cleared 3. Diabetes, T2 4. half-way abx 5. neck pain, improving Plan: 1. Day 36/56 oxacillin 2 gm IV Q4hrs, tolerating it well, cbc, cmp, crp weekly 2.PT Discussed with Dr Henley
[2016-11-15] MEDS: Atorvastatin* 40 MG TAB PO SCH (22:30)
[2016-11-15] MEDS: oxyCODONE/Acetamin 5/325 MG* TAB PO PRN (23:26)
[2016-11-15] MEDS: Insulin GLARGINE(*) 1 UNITS UNIT SUBCUT SCH (23:29)
[2016-11-16] MEDS: Oxacillin(*) 2 GM in NS 0.9% 100 ML* 100 ML IVPB SCH ×6 (00:32→20:56)
[2016-11-16] MEDS: Cyclobenzaprine TAB* 10 MG PO PRN (04:40)
[2016-11-16] MEDS: Heparin VIAL(*) 5000 UNITS/ML VIAL (FIVE THOUSAND) SUBCUT SCH ×3 (06:26→21:05)
[2016-11-16] MEDS: Insulin LISPRO* 1 UNITS UNIT SUBCUT SCH ×7 (07:41→23:50)
[2016-11-16] MEDS: Polyethylene Glycol 3350* 17 GM PACKET PO SCH ×2 (08:58→21:03)
[2016-11-16] MEDS: amLODIPine TAB* 5 MG PO SCH (09:01)
[2016-11-16] MEDS: Atenolol TAB* 50 MG PO SCH (09:01)
[2016-11-16] MEDS: Docusate CAP* 100 MG PO SCH ×2 (09:02→21:04)
[2016-11-16] MEDS: Timolol 0.5% OPTH.SOL* BTL BOTH EYES SCH ×2 (09:04→21:04)
[2016-11-16] MEDS: Insulin GLARGINE(*) 1 UNITS UNIT SUBCUT SCH (21:04)
[2016-11-16] MEDS: Atorvastatin* 40 MG TAB PO SCH (21:04)
[2016-11-16] MEDS: oxyCODONE/Acetamin 5/325 MG* TAB PO PRN (21:37)
--- NOTE | 2016-11-16 22:35 | CONS ---
CONSULTATION NOTE: DATE OF CONSULT: 11/16/16 LOCATION: [address] [place] [address], Room 403. CHIEF COMPLAINT: Ms. Peralta is a 76-year-old female in for consultation of long thick nails. HISTORY OF PRESENT ILLNESS: The patient is an insulin-dependent diabetic admitted to [address] [place] [address] and the hospitalist asked Podiatry to examine and debride her long thick nails. PHYSICAL EXAM: Ms. Peralta is pleasant, alert and oriented x3, in no apparent distress. Normal affect and speech. Pedal pulses, dorsalis pedis and posterior tibial of right and left are 2/4, palpable. Sensation: Intact sensation. Skin Exam: There are skin changes consistent with diabetic dermopathy. Her skin is dry and scaly. There are no web space macerations. No foot ulcers at this time and no pre-ulcerative callus as well. Nail exam: Nails TI, T1, T2, T3, T4, T5, T6, T7, T8 and T9 are long, thick, dystrophic, tender with direct pressure and appears to be clinically mycotic at this time. DIAGNOSIS: Onychomycosis and diabetes with neuropathy. PLAN: 1. Diabetic foot education. I advised the patient as a diabetic, she is part of a high risk group that needs podiatric care. 2. Therefore, I recommend that she follow up with a icing maker after she has been discharged. 3. I proceeded to debride the toenails as noted above, in thickness and in length. Thank you for the consult. [id number]/REYNA #: [id number] OSWALD
[2016-11-17] MEDS: Oxacillin(*) 2 GM in NS 0.9% 100 ML* 100 ML IVPB SCH ×6 (01:03→21:00)
[2016-11-17] MEDS: Heparin VIAL(*) 5000 UNITS/ML VIAL (FIVE THOUSAND) SUBCUT SCH ×3 (06:30→23:00)
[2016-11-17] MEDS: Insulin LISPRO* 1 UNITS UNIT SUBCUT SCH ×7 (08:05→22:58)
[2016-11-17] MEDS: Docusate CAP* 100 MG PO SCH ×2 (08:24→21:07)
[2016-11-17] MEDS: Polyethylene Glycol 3350* 17 GM PACKET PO SCH ×2 (08:24→21:07)
[2016-11-17] MEDS: Atenolol TAB* 50 MG PO SCH (08:25)
[2016-11-17] MEDS: amLODIPine TAB* 5 MG PO SCH (08:25)
[2016-11-17] MEDS: Timolol 0.5% OPTH.SOL* BTL BOTH EYES SCH ×2 (08:27→21:08)
[2016-11-17] MEDS ORDERED: Furosemide IV* 10 MG/ML VIAL (40 MG) IV SLOW PU ONE (09:37)
--- NOTE | 2016-11-17 09:51 | PN ---
Subjective Date of Service: 11/17/16 Interval History: Pt is feeling well. She states she has mild discomfort in her neck and feels as if the incision is pulling when she flexes her neck but otherwise she has no complaints. Objective Active Medications: Amlodipine Besylate (Norvasc Tab*) 10 mg PO DAILY [facility] Last Admin: 11/17/16 08:25 Dose: 10 mg Atenolol (Tenormin Tab*) 50 mg PO DAILY [facility] Last Admin: 11/17/16 08:25 Dose: 50 mg Atorvastatin Calcium (Lipitor*) 40 mg PO 2100 [facility] Last Admin: 11/16/16 21:04 Dose: 40 mg Cyclobenzaprine HCl (Flexeril Tab*) 10 mg PO TID PRN PRN Reason: SPASMS Last Admin: 11/16/16 04:40 Dose: 10 mg Dextrose (D50w Syringe*) 12.5 gm IV PUSH .FOR FS < 60 - SS PRN PRN Reason: FS < 60 Docusate Sodium (Colace Cap*) 100 mg PO BID [facility] Last Admin: 11/17/16 08:24 Dose: 100 mg Heparin Sodium (Porcine) (Heparin Flush Picc/Ml/Cvc(*)) 1 ml FLUSH 0600,1800 [facility] PRN Reason: Protocol Last Admin: 11/17/16 06:31 Dose: Not Given Heparin Sodium (Porcine) (Heparin Vial(*)) 5,000 units SUBCUT Q8HR [facility] Last Admin: 11/17/16 06:30 Dose: 5,000 units Oxacillin Sodium 2 gm/ Sodium (Chloride) 100 mls @ 200 mls/hr IVPB Q4H [facility] Last Admin: 11/17/16 08:01 Dose: 200 mls/hr Insulin Glargine (Lantus(*)) 30 units SUBCUT Q24H [facility] Last Admin: 11/16/16 21:04 Dose: 30 units Insulin Human Lispro (Humalog*) 0 units SUBCUT ACHS [facility] PRN Reason: Protocol Last Admin: 11/17/16 08:05 Dose: Not Given Insulin Human Lispro (Humalog*) 0 units SUBCUT AC [facility] PRN Reason: Protocol Last Admin: 11/17/16 08:23 Dose: Not Given Oxycodone/Acetaminophen (Percocet 5/325 Tab*) 2 tab PO Q4H PRN PRN Reason: PAIN Last Admin: 11/16/16 21:37 Dose: 2 tab Polyethylene Glycol/Electrolytes (Miralax*) 17 gm PO 0800,2100 [facility] Last Admin: 11/17/16 08:24 Dose: 17 gm Senna (Senokot Tab*) 1 tab PO BEDTIME PRN PRN Reason: CONSTIPATION Last Admin: 10/23/16 20:08 Dose: 1 tab Timolol Maleate (Timoptic 0.5% Opth*) 1 drop BOTH EYES BID [facility] Last Admin: 11/17/16 08:27 Dose: 1 drop Vital Signs 11/16/16 11/16/16 11/16/16 21:14 21:37 23:37 Temperature Pulse Rate Respiratory 18 16 18 Rate Blood Pressure (mmHg) O2 Sat by Pulse Oximetry 11/17/16 07:18 Temperature 97.7 F Pulse Rate 65 Respiratory 16 Rate Blood Pressure 142/57 (mmHg) O2 Sat by Pulse 98 Oximetry Oxygen Devices in Use Now: None Appearance: Elderly female sitting in a chair, NAD Eyes: No Scleral Icterus Ears/Nose/Mouth/Throat: Mucous Membranes Moist Respiratory: Symmetrical Chest Expansion and Respiratory Effort, Clear to Auscultation Cardiovascular: NL Sounds; No Murmurs; No JVD, RRR, No Edema Abdominal: NL Sounds; No Tenderness; No Distention Extremities: No Clubbing, Cyanosis Skin: No Rash or Ulcers, No Nodules or Sclerosis Neurological: Alert and Oriented x 3 Result Diagrams: 11/11/16 05:00 11/11/16 05:00 Assess/Plan/Problems-Billing Mrs. Peralta is a 76 yo F with PMHx of type 2 DM, HLD, HTN who was admitted with cervical and lumbar spine epidural abscesses now s/p surgical decompression of the cervical epidural abscess and medical management of the lumbar epidural abscess. - Patient Problems (1) Epidural abscess Current Visit: No Status: Acute Priority: High Code(s): G06.2 - EXTRADURAL AND SUBDURAL ABSCESS, UNSPECIFIED SNOMED Code(s): 38933798 Comment: Cervical epidural abscess is s/p surgical decompression 10/09/16. Lumbar MRI on 10/12 showed another area with osteodiskitis and small epidural abscess this is being treated medically. Continue oxacillin IV q4hr. Today is D# 37/56- IV Abx will be done 12/05/16. (2) Type 2 diabetes mellitus Current Visit: Yes Status: Chronic Comment: Sugars are under fair control on lantus 30 unit SQ daily and carb counting and corrective lispro scale. A1c in 09/2016 was elevated at 9.0%. (3) HTN (hypertension) Current Visit: Yes Status: Acute Code(s): I10 - ESSENTIAL (PRIMARY) HYPERTENSION SNOMED Code(s): 34217177 Comment: BP is mildly elevated- will add low dose losartan to aim for better BP control. (4) DVT prophylaxis Current Visit: Yes Status: Acute Code(s): XSL0248 - SNOMED Code(s): 207255583 Comment: SQ heparin (5) Full code status Current Visit: Yes Status: Acute Code(s): Z78.9 - OTHER SPECIFIED HEALTH STATUS SNOMED Code(s): 692330619 Status and Disposition: IV Abx through 12/05/16
[2016-11-17] MEDS: Losartan TAB* 25 MG PO SCH (11:04)
[2016-11-17] MEDS: Cyclobenzaprine TAB* 10 MG PO PRN (11:10)
[2016-11-17] MEDS: oxyCODONE/Acetamin 5/325 MG* TAB PO PRN (19:31)
[2016-11-17] MEDS: Atorvastatin* 40 MG TAB PO SCH (21:07)
[2016-11-17] MEDS: Insulin GLARGINE(*) 1 UNITS UNIT SUBCUT SCH (21:08)
[2016-11-18] MEDS: Oxacillin(*) 2 GM in NS 0.9% 100 ML* 100 ML IVPB SCH ×6 (01:01→20:50)
[2016-11-18] MEDS: Heparin VIAL(*) 5000 UNITS/ML VIAL (FIVE THOUSAND) SUBCUT SCH ×3 (06:05→20:51)
[2016-11-18] MEDS ORDERED: NS 0.9% 100 ML* 100 ML ONE (09:27)
[2016-11-18] MEDS: Losartan TAB* 25 MG PO SCH (09:31)
[2016-11-18] MEDS: Atenolol TAB* 50 MG PO SCH (09:31)
[2016-11-18] MEDS: amLODIPine TAB* 5 MG PO SCH (09:31)
[2016-11-18] MEDS: Docusate CAP* 100 MG PO SCH ×2 (09:31→20:51)
[2016-11-18] MEDS: Insulin LISPRO* 1 UNITS UNIT SUBCUT SCH ×7 (09:33→21:08)
[2016-11-18] MEDS: Polyethylene Glycol 3350* 17 GM PACKET PO SCH ×2 (09:33→20:51)
[2016-11-18] MEDS: Timolol 0.5% OPTH.SOL* BTL BOTH EYES SCH ×2 (09:53→20:51)
[2016-11-18 13:31] LABS: Hematocrit 31 % (35-47); Hemoglobin 9.9 g/dl (12.0-16.0); Mean Corpuscular HGB Conc 32 g/dl (31-36); Mean Corpuscular Hemoglobin 26 pg (27-31); Mean Corpuscular Volume 83 fL (80-97); Mean Platelet Volume 8 um3 (7.4-10.4); Red Blood Count 3.78 10^6/ul (4.0-5.4); Red Cell Distribution Width 18 % (10.5-15); White Blood Count 5.8 10^3/ul (3.5-10.8)
[2016-11-18 13:51] LABS: Albumin 3.2 g/dL (3.2-5.2); BUN/Creatinine Ratio 17.6 (8-20); C Reactive Protein 2.96 mg/L (< 5.00); Calcium 9.2 mg/dL (8.6-10.3); EGFR African American 108.5 (>60); EGFR Non-African American 84.4 (>60); Globulin 3.3 g/dL (2-4); Potassium 3.8 mmol/L (3.5-5.0); Total Bilirubin 0.2 mg/dL (0.2-1.0); Total Protein 6.5 g/dL (6.4-8.9)
[2016-11-18] MEDS: Atorvastatin* 40 MG TAB PO SCH (20:51)
[2016-11-18] MEDS: Insulin GLARGINE(*) 1 UNITS UNIT SUBCUT SCH (21:07)
[2016-11-18] MEDS: oxyCODONE/Acetamin 5/325 MG* TAB PO PRN (21:08)
[2016-11-19] MEDS: Oxacillin(*) 2 GM in NS 0.9% 100 ML* 100 ML IVPB SCH ×6 (00:46→21:19)
[2016-11-19] MEDS: Heparin VIAL(*) 5000 UNITS/ML VIAL (FIVE THOUSAND) SUBCUT SCH ×3 (05:59→22:01)
[2016-11-19] MEDS: Insulin LISPRO* 1 UNITS UNIT SUBCUT SCH ×7 (07:45→22:03)
[2016-11-19] MEDS: Polyethylene Glycol 3350* 17 GM PACKET PO SCH ×2 (08:26→21:57)
[2016-11-19] MEDS: amLODIPine TAB* 5 MG PO SCH (08:33)
[2016-11-19] MEDS: Atenolol TAB* 50 MG PO SCH (08:33)
[2016-11-19] MEDS: Docusate CAP* 100 MG PO SCH ×2 (08:33→21:57)
[2016-11-19] MEDS: Losartan TAB* 25 MG PO SCH (08:33)
[2016-11-19] MEDS: Timolol 0.5% OPTH.SOL* BTL BOTH EYES SCH ×2 (08:35→21:59)
[2016-11-19] MEDS: Atorvastatin* 40 MG TAB PO SCH (21:57)
[2016-11-19] MEDS: oxyCODONE/Acetamin 5/325 MG* TAB PO PRN (21:57)
[2016-11-19] MEDS: Insulin GLARGINE(*) 1 UNITS UNIT SUBCUT SCH (22:03)
[2016-11-20] MEDS: Oxacillin(*) 2 GM in NS 0.9% 100 ML* 100 ML IVPB SCH ×6 (02:00→22:14)
[2016-11-20] MEDS: Heparin VIAL(*) 5000 UNITS/ML VIAL (FIVE THOUSAND) SUBCUT SCH (05:32)
[2016-11-20] MEDS: Insulin LISPRO* 1 UNITS UNIT SUBCUT SCH ×7 (09:19→21:49)
[2016-11-20] MEDS: Polyethylene Glycol 3350* 17 GM PACKET PO SCH ×2 (09:35→22:14)
[2016-11-20] MEDS: Losartan TAB* 25 MG PO SCH (09:36)
[2016-11-20] MEDS: amLODIPine TAB* 5 MG PO SCH (09:36)
[2016-11-20] MEDS: Atenolol TAB* 50 MG PO SCH (09:37)
[2016-11-20] MEDS: Docusate CAP* 100 MG PO SCH ×2 (09:37→22:14)
[2016-11-20] MEDS: Timolol 0.5% OPTH.SOL* BTL BOTH EYES SCH ×2 (09:39→22:14)
--- NOTE | 2016-11-20 15:06 | PN ---
Progress Note - Progress Note SOAP: Subjective: DOS: 11/20/15 CC: epidural abscess 76 yo woman with Cervical and lumbar spine epidural abscess, s/p decompression of cervical abscess. Right neck pain worse with walking after a few laps, better with laying down, no headache. No fever, rash, or diarrhea. Objective: [] Vital Signs Temp 36.7 C 11/20/16 07:22 Pulse 67 11/20/16 07:22 Resp 18 11/20/16 08:00 BP 125/71 11/20/16 07:22 Pulse Ox 100 11/20/16 07:22 Intake & Output 11/19/16 11/20/16 11/20/16 18:59 06:59 18:59 Intake Total 490 1170 1237 Balance 490 1170 1237 Intake: IV Fluids 20 170 NS (0.9%) 20 170 IVPB 110 600 267 Oxacillin 110 600 267 Oral 360 400 970 Other: Estimated Void Medium # Bowel Movements 0 1 Estimated Stool Amount Small # Voids 3 3 Gen:AAOx3 HEENT:PERRL, MMM Neck:no mass Heart:no murmur, RRR Lungs:CTA BL Abd:+BS NTND soft Skin: no rash MSK: c spine incision intact no erythema; no L spine tenderness or paraspinal tenderness, right trapezius spasm Assessment: 1. cervical and lumbar epidural abscess due to MSSA 2. MSSA bacteremia, cleared 3. Diabetes, T2 4. custodial abx 5. neck pain, improving 6. long term care social worker current abx use Plan: 1. Day 41/ oxacillin 2 gm IV Q4hrs, tolerating it well; cbc, cmp, crp weekly 2.PT, heat pack to neck Discussed with Dr Henley
[2016-11-20] MEDS: Atorvastatin* 40 MG TAB PO SCH (22:14)
[2016-11-20] MEDS: Enoxaparin(*) 40 MG/0.4 ML SYR SUBCUT SCH (22:14)
[2016-11-20] MEDS: Insulin GLARGINE(*) 1 UNITS UNIT SUBCUT SCH (22:15)
[2016-11-20] MEDS ORDERED: oxyCODONE TAB* 5 MG TAB PO PRN (22:35)
[2016-11-21] MEDS: Oxacillin(*) 2 GM in NS 0.9% 100 ML* 100 ML IVPB SCH ×6 (01:07→21:03)
[2016-11-21] MEDS: Insulin LISPRO* 1 UNITS UNIT SUBCUT SCH ×7 (08:23→21:22)
[2016-11-21] MEDS: Polyethylene Glycol 3350* 17 GM PACKET PO SCH ×2 (08:37→21:21)
[2016-11-21] MEDS: Losartan TAB* 25 MG PO SCH (08:38)
[2016-11-21] MEDS: amLODIPine TAB* 5 MG PO SCH (08:38)
[2016-11-21] MEDS: Atenolol TAB* 50 MG PO SCH (08:38)
[2016-11-21] MEDS: Docusate CAP* 100 MG PO SCH ×2 (08:38→21:21)
[2016-11-21] MEDS: Timolol 0.5% OPTH.SOL* BTL BOTH EYES SCH ×2 (08:44→21:23)
[2016-11-21] MEDS: oxyCODONE/Acetamin 5/325 MG* TAB PO PRN (17:36)
[2016-11-21] MEDS: Atorvastatin* 40 MG TAB PO SCH (21:21)
[2016-11-21] MEDS: Insulin GLARGINE(*) 1 UNITS UNIT SUBCUT SCH (21:23)
[2016-11-21] MEDS: Enoxaparin(*) 40 MG/0.4 ML SYR SUBCUT SCH (21:23)
[2016-11-22] MEDS: Oxacillin(*) 2 GM in NS 0.9% 100 ML* 100 ML IVPB SCH ×6 (01:06→20:22)
[2016-11-22] MEDS: amLODIPine TAB* 5 MG PO SCH (08:50)
[2016-11-22] MEDS: Losartan TAB* 25 MG PO SCH (08:50)
[2016-11-22] MEDS: Atenolol TAB* 50 MG PO SCH (08:51)
[2016-11-22] MEDS: Insulin LISPRO* 1 UNITS UNIT SUBCUT SCH ×7 (08:51→21:31)
[2016-11-22] MEDS: Timolol 0.5% OPTH.SOL* BTL BOTH EYES SCH ×2 (08:51→21:31)
[2016-11-22] MEDS: Polyethylene Glycol 3350* 17 GM PACKET PO SCH ×2 (08:52→20:54)
[2016-11-22] MEDS: Docusate CAP* 100 MG PO SCH ×2 (08:58→20:54)
[2016-11-22] MEDS: oxyCODONE/Acetamin 5/325 MG* TAB PO PRN (18:01)
[2016-11-22] MEDS: Atorvastatin* 40 MG TAB PO SCH (20:54)
[2016-11-22] MEDS: Enoxaparin(*) 40 MG/0.4 ML SYR SUBCUT SCH (20:54)
[2016-11-22] MEDS: Insulin GLARGINE(*) 1 UNITS UNIT SUBCUT SCH (20:55)
[2016-11-23] MEDS: Oxacillin(*) 2 GM in NS 0.9% 100 ML* 100 ML IVPB SCH ×6 (00:16→20:28)
[2016-11-23] MEDS: Insulin LISPRO* 1 UNITS UNIT SUBCUT SCH ×7 (07:53→21:51)
[2016-11-23] MEDS: Losartan TAB* 25 MG PO SCH (08:49)
[2016-11-23] MEDS: Polyethylene Glycol 3350* 17 GM PACKET PO SCH ×2 (08:49→20:48)
[2016-11-23] MEDS: amLODIPine TAB* 5 MG PO SCH (08:49)
[2016-11-23] MEDS: Docusate CAP* 100 MG PO SCH ×2 (08:49→20:48)
[2016-11-23] MEDS: Timolol 0.5% OPTH.SOL* BTL BOTH EYES SCH ×2 (08:49→20:48)
[2016-11-23] MEDS: Atenolol TAB* 50 MG PO SCH (08:49)
[2016-11-23] MEDS: Enoxaparin(*) 40 MG/0.4 ML SYR SUBCUT SCH (20:48)
[2016-11-23] MEDS: Atorvastatin* 40 MG TAB PO SCH (20:48)
[2016-11-23] MEDS: Insulin GLARGINE(*) 1 UNITS UNIT SUBCUT SCH (20:49)
[2016-11-23] MEDS: oxyCODONE/Acetamin 5/325 MG* TAB PO PRN (21:51)
[2016-11-24] MEDS: Oxacillin(*) 2 GM in NS 0.9% 100 ML* 100 ML IVPB SCH ×6 (00:55→20:23)
[2016-11-24 06:58] LABS: Hematocrit 32 % (35-47); Hemoglobin 10.3 g/dl (12.0-16.0); Mean Corpuscular HGB Conc 32 g/dl (31-36); Mean Corpuscular Hemoglobin 26 pg (27-31); Mean Corpuscular Volume 82 fL (80-97); Mean Platelet Volume 8 um3 (7.4-10.4); Red Blood Count 3.88 10^6/ul (4.0-5.4); Red Cell Distribution Width 18 % (10.5-15); White Blood Count 7.1 10^3/ul (3.5-10.8)
[2016-11-24 07:01] LABS: Albumin 3.2 g/dL (3.2-5.2); BUN/Creatinine Ratio 17.4 (8-20); C Reactive Protein 4.51 mg/L (< 5.00); Calcium 9.1 mg/dL (8.6-10.3); EGFR African American 106.7 (>60); EGFR Non-African American 82.9 (>60); Globulin 3.5 g/dL (2-4); Potassium 3.8 mmol/L (3.5-5.0); Total Bilirubin 0.2 mg/dL (0.2-1.0); Total Protein 6.7 g/dL (6.4-8.9)
[2016-11-24] MEDS: Insulin LISPRO* 1 UNITS UNIT SUBCUT SCH ×7 (07:52→20:51)
[2016-11-24] MEDS: Atenolol TAB* 50 MG PO SCH (08:40)
[2016-11-24] MEDS: Docusate CAP* 100 MG PO SCH ×2 (08:40→20:49)
[2016-11-24] MEDS: Losartan TAB* 25 MG PO SCH (08:40)
[2016-11-24] MEDS: Polyethylene Glycol 3350* 17 GM PACKET PO SCH ×2 (08:40→20:49)
[2016-11-24] MEDS: amLODIPine TAB* 5 MG PO SCH (08:40)
[2016-11-24] MEDS: Timolol 0.5% OPTH.SOL* BTL BOTH EYES SCH ×2 (08:46→20:51)
[2016-11-24 09:58] LABS: Erythrocyte Sed Rate 71 mm/Hr (0-40)
--- NOTE | 2016-11-24 14:20 | PN ---
Subjective Date of Service: 11/24/16 Interval History: HOSPITALIST PROGRESS NOTE Patient seen and examined at bedside. She feels well today. Still has some neck pain, especially if she tries to walk multiple times around the unit, but overall feels improved. Family History: Unchanged from Admission Social History: Unchanged from Admission Past Medical History: Unchanged from Admission Objective Active Medications: Acetaminophen (Tylenol Tab*) 650 mg PO Q6H PRN PRN Reason: FEVER/PAIN Amlodipine Besylate (Norvasc Tab*) 10 mg PO DAILY [facility] Last Admin: 11/24/16 08:40 Dose: 10 mg Atenolol (Tenormin Tab*) 50 mg PO DAILY [facility] Last Admin: 11/24/16 08:40 Dose: 50 mg Atorvastatin Calcium (Lipitor*) 40 mg PO 2100 [facility] Last Admin: 11/23/16 20:48 Dose: 40 mg Cyclobenzaprine HCl (Flexeril Tab*) 10 mg PO TID PRN PRN Reason: SPASMS Last Admin: 11/17/16 11:10 Dose: 10 mg Dextrose (D50w Syringe*) 12.5 gm IV PUSH .FOR FS < 60 - SS PRN PRN Reason: FS < 60 Docusate Sodium (Colace Cap*) 100 mg PO BID [facility] Last Admin: 11/24/16 08:40 Dose: 100 mg Enoxaparin Sodium (Lovenox(*)) 40 mg SUBCUT Q24H [facility] Last Admin: 11/23/16 20:48 Dose: 40 mg Heparin Sodium (Porcine) (Heparin Flush Picc/Ml/Cvc(*)) 1 ml FLUSH 0600,1800 [facility] PRN Reason: Protocol Last Admin: 11/24/16 13:25 Dose: 1 ml Oxacillin Sodium 2 gm/ Sodium (Chloride) 100 mls @ 200 mls/hr IVPB Q4H [facility] Last Admin: 11/24/16 12:34 Dose: 200 mls/hr Insulin Glargine (Lantus(*)) 30 units SUBCUT Q24H [facility] Last Admin: 11/23/16 20:49 Dose: 30 units Insulin Human Lispro (Humalog*) 0 units SUBCUT ACHS [facility] PRN Reason: Protocol Last Admin: 11/24/16 12:33 Dose: 1 units Insulin Human Lispro (Humalog*) 0 units SUBCUT AC [facility] PRN Reason: Protocol Last Admin: 11/24/16 12:34 Dose: 6 units Losartan Potassium (Cozaar Tab*) 25 mg PO DAILY [facility] Last Admin: 11/24/16 08:40 Dose: 25 mg Metformin HCl (Glucophage*) 500 mg PO 0800,1700 [facility] Oxycodone/Acetaminophen (Percocet 5/325 Tab*) 1 tab PO Q4H PRN PRN Reason: PAIN Last Admin: 11/23/16 21:51 Dose: 1 tab Polyethylene Glycol/Electrolytes (Miralax*) 17 gm PO 0800,2100 [facility] Last Admin: 11/24/16 08:40 Dose: 17 gm Senna (Senokot Tab*) 1 tab PO BEDTIME PRN PRN Reason: CONSTIPATION Last Admin: 10/23/16 20:08 Dose: 1 tab Timolol Maleate (Timoptic 0.5% Opth*) 1 drop BOTH EYES BID [facility] Last Admin: 11/24/16 08:46 Dose: 1 drop Vital Signs 11/23/16 11/23/16 11/23/16 20:00 21:51 23:51 Pulse Rate Respiratory 16 18 16 Rate Blood Pressure (mmHg) O2 Sat by Pulse Oximetry 11/24/16 11/24/16 07:53 08:10 Pulse Rate 70 Respiratory 16 16 Rate Blood Pressure 151/51 (mmHg) O2 Sat by Pulse 100 Oximetry Oxygen Devices in Use Now: None Appearance: Pleasant elderly lady sitting up in bed in [facility]. Eyes: No Scleral Icterus Ears/Nose/Mouth/Throat: Mucous Membranes Moist Neck: Trachea Midline Respiratory: Symmetrical Chest Expansion and Respiratory Effort, Clear to Auscultation Cardiovascular: RRR - Normal S1 and S2 Abdominal: NL Sounds; No Tenderness; No Distention Neurological: Alert and Oriented x 3, NL Muscle Strength and Tone Lines/Tubes/Other Access: Clean, Dry and Intact Peripheral IV Nutrition: Taking PO's Result Diagrams: 11/24/16 06:30 11/24/16 06:30 Assess/Plan/Problems-Billing Mrs. Peralta is a 76 yo F with PMHx of type 2 DM, HLD, HTN who was admitted with cervical and lumbar spine epidural abscesses now s/p surgical decompression of the cervical epidural abscess and medical management of the lumbar epidural abscess. - Patient Problems (1) MSSA (methicillin susceptible Staphylococcus aureus) septicemia Comment: - With cervical and lumbar epidural abscess. - Continue Oxacillin #45/56. - Check weekly CBC, CMP, CRP. (2) Type 2 diabetes mellitus Comment: - Sugars are under fair control on lantus 30 unit SQ daily and carb counting and corrective lispro scale. A1c in 09/2016 was elevated at 9.0%. - Patient is not allergic to Metformin, she had GI upset with one specific brand , but was able to tolerate another. Will resume low dose Metformin in preparation to d/c home. If she tolerates, may increase dose, adjust Lantus and maybe add sulfunylurea. (3) HTN (hypertension) Comment: - Better controlled. - Continue Atenolol, Amlodipine, and Losartan. (4) DVT prophylaxis Comment: - Lovenox. Status and Disposition: Swing status for IV antibiotics.
[2016-11-24] MEDS: metFORMIN* 500 MG TAB PO SCH (17:00)
[2016-11-24] MEDS: oxyCODONE/Acetamin 5/325 MG* TAB PO PRN (20:49)
[2016-11-24] MEDS: Atorvastatin* 40 MG TAB PO SCH (20:49)
[2016-11-24] MEDS: Enoxaparin(*) 40 MG/0.4 ML SYR SUBCUT SCH (20:50)
[2016-11-24] MEDS: Insulin GLARGINE(*) 1 UNITS UNIT SUBCUT SCH (20:51)
[2016-11-25] MEDS: Oxacillin(*) 2 GM in NS 0.9% 100 ML* 100 ML IVPB SCH ×6 (00:06→21:18)
[2016-11-25] MEDS: Insulin LISPRO* 1 UNITS UNIT SUBCUT SCH ×7 (07:21→21:18)
[2016-11-25] MEDS: Timolol 0.5% OPTH.SOL* BTL BOTH EYES SCH ×2 (09:00→21:23)
[2016-11-25] MEDS: Polyethylene Glycol 3350* 17 GM PACKET PO SCH ×2 (09:00→19:55)
[2016-11-25] MEDS: amLODIPine TAB* 5 MG PO SCH (09:02)
[2016-11-25] MEDS: Docusate CAP* 100 MG PO SCH ×2 (09:02→19:54)
[2016-11-25] MEDS: Atenolol TAB* 50 MG PO SCH (09:02)
[2016-11-25] MEDS: Losartan TAB* 25 MG PO SCH (09:02)
[2016-11-25] MEDS: metFORMIN* 500 MG TAB PO SCH ×2 (09:02→17:05)
[2016-11-25] MEDS: Insulin GLARGINE(*) 1 UNITS UNIT SUBCUT SCH (20:54)
[2016-11-25] MEDS: Atorvastatin* 40 MG TAB PO SCH (20:54)
[2016-11-25] MEDS: oxyCODONE/Acetamin 5/325 MG* TAB PO PRN (21:02)
[2016-11-25] MEDS: Enoxaparin(*) 40 MG/0.4 ML SYR SUBCUT SCH (21:18)
[2016-11-26] MEDS: Oxacillin(*) 2 GM in NS 0.9% 100 ML* 100 ML IVPB SCH ×6 (00:27→20:20)
[2016-11-26] MEDS: Atenolol TAB* 50 MG PO SCH (08:52)
[2016-11-26] MEDS: Insulin LISPRO* 1 UNITS UNIT SUBCUT SCH ×7 (08:52→21:26)
[2016-11-26] MEDS: metFORMIN* 500 MG TAB PO SCH ×2 (08:52→17:22)
[2016-11-26] MEDS: Losartan TAB* 25 MG PO SCH (08:52)
[2016-11-26] MEDS: Timolol 0.5% OPTH.SOL* BTL BOTH EYES SCH ×2 (08:52→21:29)
[2016-11-26] MEDS: amLODIPine TAB* 5 MG PO SCH (08:53)
[2016-11-26] MEDS: Polyethylene Glycol 3350* 17 GM PACKET PO SCH ×2 (08:53→21:26)
[2016-11-26] MEDS: Docusate CAP* 100 MG PO SCH ×2 (08:57→21:26)
[2016-11-26] MEDS: Atorvastatin* 40 MG TAB PO SCH (21:25)
[2016-11-26] MEDS: Insulin GLARGINE(*) 1 UNITS UNIT SUBCUT SCH (21:27)
[2016-11-26] MEDS: Enoxaparin(*) 40 MG/0.4 ML SYR SUBCUT SCH (21:27)
[2016-11-26] MEDS: oxyCODONE/Acetamin 5/325 MG* TAB PO PRN (21:33)
[2016-11-27] MEDS: Oxacillin(*) 2 GM in NS 0.9% 100 ML* 100 ML IVPB SCH ×6 (00:28→20:54)
[2016-11-27] MEDS: Insulin LISPRO* 1 UNITS UNIT SUBCUT SCH ×7 (07:30→21:28)
[2016-11-27] MEDS: Atenolol TAB* 50 MG PO SCH (09:06)
[2016-11-27] MEDS: Polyethylene Glycol 3350* 17 GM PACKET PO SCH ×2 (09:06→21:25)
[2016-11-27] MEDS: Losartan TAB* 25 MG PO SCH (09:06)
[2016-11-27] MEDS: amLODIPine TAB* 5 MG PO SCH (09:06)
[2016-11-27] MEDS: Docusate CAP* 100 MG PO SCH ×2 (09:06→21:25)
[2016-11-27] MEDS: metFORMIN* 500 MG TAB PO SCH ×2 (09:06→17:48)
[2016-11-27] MEDS: Timolol 0.5% OPTH.SOL* BTL BOTH EYES SCH ×2 (09:09→20:54)
--- NOTE | 2016-11-27 15:21 | PN ---
Progress Note - Progress Note SOAP: Subjective: DOS: 11/27/15 CC: epidural abscess 76 yo woman with Cervical and lumbar spine epidural abscess, s/p decompression of cervical abscess. Neck pain slowly improving. Loose stool yesterday, previous BM were small pellets which is what it was today, now with nausea, no abd pain or bloating. Objective: [] Vital Signs Temp 36.7 C 11/20/16 07:22 Pulse 67 11/20/16 07:22 Resp 18 11/20/16 08:00 BP 125/71 11/20/16 07:22 Pulse Ox 100 11/20/16 07:22 Intake & Output 11/19/16 11/20/16 11/20/16 18:59 06:59 18:59 Intake Total 490 1170 1237 Balance 490 1170 1237 Intake: IV Fluids 20 170 NS (0.9%) 20 170 IVPB 110 600 267 Oxacillin 110 600 267 Oral 360 400 970 Other: Estimated Void Medium # Bowel Movements 0 1 Estimated Stool Amount Small # Voids 3 3 Gen:AAOx3 HEENT:PERRL, MMM Neck:no mass Heart:no murmur, RRR Lungs:CTA BL Abd:+BS NTND soft Skin: no rash MSK: c spine incision intact no erythema; no L spine tenderness or paraspinal tenderness Assessment: 1. cervical and lumbar epidural abscess due to MSSA 2. nausea and loose stool yesterday suspect constipation given others were pellets and on narcotics now. 3. Diabetes, T2 4. senior living abx 5. neck pain, improving Plan: 1. Day 48/56 oxacillin 2 gm IV Q4hrs, tolerating it well; cbc, cmp, crp weekly 2. prn zofran, continue bowel regimen, can amplify regimen if no improvement Discussed with Dr Henley
[2016-11-27] MEDS: Ondansetron TAB* 4 MG PO PRN (16:58)
[2016-11-27] MEDS: Atorvastatin* 40 MG TAB PO SCH (20:54)
[2016-11-27] MEDS: Enoxaparin(*) 40 MG/0.4 ML SYR SUBCUT SCH (20:56)
[2016-11-27] MEDS: Insulin GLARGINE(*) 1 UNITS UNIT SUBCUT SCH (20:56)
[2016-11-28] MEDS: Oxacillin(*) 2 GM in NS 0.9% 100 ML* 100 ML IVPB SCH ×6 (00:34→20:54)
[2016-11-28] MEDS: Insulin LISPRO* 1 UNITS UNIT SUBCUT SCH ×7 (08:49→21:28)
[2016-11-28] MEDS: metFORMIN* 500 MG TAB PO SCH ×2 (08:49→17:37)
[2016-11-28] MEDS: Docusate CAP* 100 MG PO SCH ×2 (08:50→20:55)
[2016-11-28] MEDS: amLODIPine TAB* 5 MG PO SCH (08:50)
[2016-11-28] MEDS: Losartan TAB* 25 MG PO SCH (08:51)
[2016-11-28] MEDS: Atenolol TAB* 50 MG PO SCH (08:51)
[2016-11-28] MEDS: Polyethylene Glycol 3350* 17 GM PACKET PO SCH ×2 (08:51→20:55)
[2016-11-28] MEDS: Timolol 0.5% OPTH.SOL* BTL BOTH EYES SCH ×2 (08:53→20:55)
[2016-11-28] MEDS: Atorvastatin* 40 MG TAB PO SCH (20:54)
[2016-11-28] MEDS: oxyCODONE/Acetamin 5/325 MG* TAB PO PRN (20:54)
[2016-11-28] MEDS: Enoxaparin(*) 40 MG/0.4 ML SYR SUBCUT SCH (20:55)
[2016-11-28] MEDS: Insulin GLARGINE(*) 1 UNITS UNIT SUBCUT SCH (21:28)
[2016-11-29] MEDS: Oxacillin(*) 2 GM in NS 0.9% 100 ML* 100 ML IVPB SCH ×6 (00:25→20:38)
[2016-11-29] MEDS: Insulin LISPRO* 1 UNITS UNIT SUBCUT SCH ×7 (07:51→21:42)
[2016-11-29] MEDS: Polyethylene Glycol 3350* 17 GM PACKET PO SCH ×2 (09:04→20:40)
[2016-11-29] MEDS: Docusate CAP* 100 MG PO SCH ×2 (09:06→20:39)
[2016-11-29] MEDS: metFORMIN* 500 MG TAB PO SCH ×2 (09:06→17:43)
[2016-11-29] MEDS: Atenolol TAB* 50 MG PO SCH (09:06)
[2016-11-29] MEDS: Losartan TAB* 25 MG PO SCH (09:06)
[2016-11-29] MEDS: amLODIPine TAB* 5 MG PO SCH (09:06)
[2016-11-29] MEDS: Timolol 0.5% OPTH.SOL* BTL BOTH EYES SCH ×2 (09:12→20:39)
[2016-11-29] MEDS: Enoxaparin(*) 40 MG/0.4 ML SYR SUBCUT SCH (20:39)
[2016-11-29] MEDS: Atorvastatin* 40 MG TAB PO SCH (20:40)
[2016-11-29] MEDS: Insulin GLARGINE(*) 1 UNITS UNIT SUBCUT SCH (20:40)
[2016-11-29] MEDS: oxyCODONE/Acetamin 5/325 MG* TAB PO PRN (20:57)
[2016-11-30] MEDS: Oxacillin(*) 2 GM in NS 0.9% 100 ML* 100 ML IVPB SCH ×6 (01:03→20:56)
[2016-11-30] MEDS: Insulin LISPRO* 1 UNITS UNIT SUBCUT SCH ×7 (07:36→21:48)
[2016-11-30] MEDS ORDERED: NS 0.9% 100 ML* 100 ML ONE (08:43)
[2016-11-30] MEDS: Polyethylene Glycol 3350* 17 GM PACKET PO SCH ×2 (08:46→21:26)
[2016-11-30] MEDS: metFORMIN* 500 MG TAB PO SCH ×2 (08:47→17:58)
[2016-11-30] MEDS: Losartan TAB* 25 MG PO SCH (08:47)
[2016-11-30] MEDS: Atenolol TAB* 50 MG PO SCH (08:47)
[2016-11-30] MEDS: Docusate CAP* 100 MG PO SCH ×2 (08:47→21:48)
[2016-11-30] MEDS: amLODIPine TAB* 5 MG PO SCH (08:47)
[2016-11-30] MEDS: Timolol 0.5% OPTH.SOL* BTL BOTH EYES SCH ×2 (08:49→21:49)
[2016-11-30] MEDS: Atorvastatin* 40 MG TAB PO SCH (21:47)
[2016-11-30] MEDS: Insulin GLARGINE(*) 1 UNITS UNIT SUBCUT SCH (21:48)
[2016-11-30] MEDS: Enoxaparin(*) 40 MG/0.4 ML SYR SUBCUT SCH (21:48)
[2016-12-01] MEDS: Oxacillin(*) 2 GM in NS 0.9% 100 ML* 100 ML IVPB SCH ×6 (00:40→20:55)
[2016-12-01 05:33] LABS: Hematocrit 34 % (35-47); Mean Platelet Volume 8 um3 (7.4-10.4)
[2016-12-01 05:43] LABS: Blood Urea Nitrogen 11 mg/dL (6-24); C Reactive Protein < 1.00 mg/L (< 5.00); EGFR African American 112.3 (>60); EGFR Non-African American 87.3 (>60)
[2016-12-01] MEDS: Insulin LISPRO* 1 UNITS UNIT SUBCUT SCH ×5 (07:52→17:26)
[2016-12-01] MEDS: metFORMIN* 500 MG TAB PO SCH ×2 (08:27→16:28)
[2016-12-01] MEDS: Losartan TAB* 25 MG PO SCH (08:27)
[2016-12-01] MEDS: Atenolol TAB* 50 MG PO SCH (08:27)
[2016-12-01] MEDS: Docusate CAP* 100 MG PO SCH ×2 (08:27→21:08)
[2016-12-01] MEDS: amLODIPine TAB* 5 MG PO SCH (08:27)
[2016-12-01] MEDS: Timolol 0.5% OPTH.SOL* BTL BOTH EYES SCH ×2 (08:33→21:19)
[2016-12-01] MEDS: Polyethylene Glycol 3350* 17 GM PACKET PO SCH ×2 (08:57→21:10)
[2016-12-01] MEDS ORDERED: Dextrose 50% Syringe 50 ML* 25 GM/50 ML SYRINGE IV PUSH PRN (15:16)
--- NOTE | 2016-12-01 15:23 | PN ---
Subjective Date of Service: 12/01/16 Interval History: Walked around the block 5 times today. Mild pain, only uses analgesic at bedtime. Two BM so far today. No nausea today. Family History: Unchanged from Admission Social History: Unchanged from Admission Past Medical History: Unchanged from Admission Objective Active Medications: Acetaminophen (Tylenol Tab*) 650 mg PO Q6H PRN PRN Reason: FEVER/PAIN Amlodipine Besylate (Norvasc Tab*) 10 mg PO DAILY [facility] Last Admin: 12/01/16 08:27 Dose: 10 mg Atenolol (Tenormin Tab*) 50 mg PO DAILY [facility] Last Admin: 12/01/16 08:27 Dose: 50 mg Atorvastatin Calcium (Lipitor*) 40 mg PO 2100 [facility] Last Admin: 11/30/16 21:47 Dose: 40 mg Cyclobenzaprine HCl (Flexeril Tab*) 10 mg PO TID PRN PRN Reason: SPASMS Last Admin: 11/17/16 11:10 Dose: 10 mg Dextrose (D50w Syringe*) 12.5 gm IV PUSH .FOR FS < 60 - SS PRN PRN Reason: FS < 60 Dextrose (D50w Syringe 50 Ml*) 12.5 gm IV PUSH .FOR FS < 60 - SS PRN PRN Reason: FS < 60 Docusate Sodium (Colace Cap*) 100 mg PO BID [facility] Last Admin: 12/01/16 08:27 Dose: 100 mg Enoxaparin Sodium (Lovenox(*)) 40 mg SUBCUT Q24H [facility] Last Admin: 11/30/16 21:48 Dose: 40 mg Heparin Sodium (Porcine) (Heparin Flush Picc/Ml/Cvc(*)) 1 ml FLUSH 0600,1800 [facility] PRN Reason: Protocol Last Admin: 12/01/16 06:03 Dose: 1 ml Oxacillin Sodium 2 gm/ Sodium (Chloride) 100 mls @ 200 mls/hr IVPB Q4H [facility] Last Admin: 12/01/16 12:51 Dose: 200 mls/hr Insulin Glargine (Lantus(*)) 30 units SUBCUT Q24H [facility] Last Admin: 11/30/16 21:48 Dose: 30 units Insulin Human Lispro (Humalog*) 5 units SUBCUT AC [facility] Losartan Potassium (Cozaar Tab*) 25 mg PO DAILY [facility] Last Admin: 12/01/16 08:27 Dose: 25 mg Metformin HCl (Glucophage*) 500 mg PO 0800,1700 [facility] Last Admin: 12/01/16 08:27 Dose: 500 mg Ondansetron HCl (Zofran Tab*) 4 mg PO Q8H PRN PRN Reason: NAUSEA Last Admin: 11/27/16 16:58 Dose: 4 mg Oxycodone/Acetaminophen (Percocet 5/325 Tab*) 1 tab PO Q4H PRN PRN Reason: PAIN Last Admin: 11/29/16 20:57 Dose: 1 tab Polyethylene Glycol/Electrolytes (Miralax*) 17 gm PO 0800,2100 [facility] Last Admin: 12/01/16 08:57 Dose: Not Given Senna (Senokot Tab*) 1 tab PO BEDTIME PRN PRN Reason: CONSTIPATION Last Admin: 10/23/16 20:08 Dose: 1 tab Timolol Maleate (Timoptic 0.5% Opth*) 1 drop BOTH EYES BID [facility] Last Admin: 12/01/16 08:33 Dose: 1 drop Vital Signs 11/30/16 12/01/16 12/01/16 22:12 07:23 08:00 Temperature 97.9 F Pulse Rate 84 Respiratory 16 16 16 Rate Blood Pressure 158/66 (mmHg) O2 Sat by Pulse 100 Oximetry Oxygen Devices in Use Now: None Appearance: Alert, supine in bed. In good spirits. Looks comfortable. Eyes: No Scleral Icterus Extremities: No Edema, No Clubbing, Cyanosis, - Skin: No Rash or Ulcers, No Nodules or Sclerosis, - Neurological: Alert and Oriented x 3, NL Sensation - Moves all limbs. Result Diagrams: 12/01/16 05:15 12/01/16 05:15 Assess/Plan/Problems-Billing Mrs. Peralta is a 76 yo F with PMHx of type 2 DM, HLD, HTN who was admitted with cervical and lumbar spine epidural abscesses now s/p surgical decompression of the cervical epidural abscess and medical management of the lumbar epidural abscess. - Patient Problems (1) Epidural abscess Current Visit: No Status: Acute Priority: High Code(s): G06.2 - EXTRADURAL AND SUBDURAL ABSCESS, UNSPECIFIED SNOMED Code(s): 88752825 Comment: Cervical epidural abscess is s/p surgical decompression 10/09/16. Lumbar MRI on 10/12 showed another area with osteodiskitis and small epidural abscess this is being treated medically. Continue oxacillin IV q4hr. IV Abx will be done 12/05/16. (2) Type 2 diabetes mellitus Current Visit: Yes Status: Chronic Comment: Patient doesn't feel she can do carb counting but is willing to give insulin by pen ac. I will try 5 U Lispro ac, keep Lantus at 35 U daily for now, can adjust on dishcarge if neede, will need to titrate at home anyway. Tolerating metoformin at this dose so far. (3) MSSA (methicillin susceptible Staphylococcus aureus) septicemia Current Visit: Yes Status: Acute Priority: High Code(s): A41.01 - SEPSIS DUE TO METHICILLIN SUSCEPTIBLE STAPHYLOCOCCUS AUREUS SNOMED Code(s): 902694691 Comment: - With cervical and lumbar epidural abscess. - Continue Oxacillin through 12/05/16. - Check weekly CBC, CMP, CRP. CRP < 1 on 12/01/16. (4) HTN (hypertension) Current Visit: Yes Status: Acute Code(s): I10 - ESSENTIAL (PRIMARY) HYPERTENSION SNOMED Code(s): 94168218 Comment: - Better controlled. - Continue Atenolol, Amlodipine, and Losartan. Status and Disposition: Swing status for IV antibiotics.
[2016-12-01] MEDS: NS 0.9% 100 ML* 100 ML ONE (20:50)
[2016-12-01] MEDS: Enoxaparin(*) 40 MG/0.4 ML SYR SUBCUT SCH (21:08)
[2016-12-01] MEDS: Atorvastatin* 40 MG TAB PO SCH (21:08)
[2016-12-01] MEDS: Insulin GLARGINE(*) 1 UNITS UNIT SUBCUT SCH (21:09)
[2016-12-02] MEDS: Oxacillin(*) 2 GM in NS 0.9% 100 ML* 100 ML IVPB SCH ×6 (01:09→20:17)
[2016-12-02] MEDS: NS 0.9% 100 ML* 100 ML ONE (06:39)
[2016-12-02] MEDS: metFORMIN* 500 MG TAB PO SCH ×2 (08:18→16:53)
[2016-12-02] MEDS: Docusate CAP* 100 MG PO SCH ×2 (08:18→21:04)
[2016-12-02] MEDS: Polyethylene Glycol 3350* 17 GM PACKET PO SCH ×2 (08:18→20:51)
[2016-12-02] MEDS: Losartan TAB* 25 MG PO SCH (08:18)
[2016-12-02] MEDS: amLODIPine TAB* 5 MG PO SCH (08:18)
[2016-12-02] MEDS: Atenolol TAB* 50 MG PO SCH (08:18)
[2016-12-02] MEDS: Timolol 0.5% OPTH.SOL* BTL BOTH EYES SCH ×2 (08:20→21:04)
[2016-12-02] MEDS: Insulin LISPRO* 1 UNITS UNIT SUBCUT SCH ×3 (08:37→17:27)
[2016-12-02] MEDS: Atorvastatin* 40 MG TAB PO SCH (21:04)
[2016-12-02] MEDS: Insulin GLARGINE(*) 1 UNITS UNIT SUBCUT SCH (21:04)
[2016-12-02] MEDS: Enoxaparin(*) 40 MG/0.4 ML SYR SUBCUT SCH (21:04)
[2016-12-03] MEDS: Oxacillin(*) 2 GM in NS 0.9% 100 ML* 100 ML IVPB SCH ×6 (00:44→20:52)
[2016-12-03] MEDS: amLODIPine TAB* 5 MG PO SCH (08:34)
[2016-12-03] MEDS: Atenolol TAB* 50 MG PO SCH (08:34)
[2016-12-03] MEDS: Losartan TAB* 25 MG PO SCH (08:34)
[2016-12-03] MEDS: Docusate CAP* 100 MG PO SCH ×2 (08:35→20:53)
[2016-12-03] MEDS: metFORMIN* 500 MG TAB PO SCH ×2 (08:35→17:33)
[2016-12-03] MEDS: Insulin LISPRO* 1 UNITS UNIT SUBCUT SCH ×3 (08:37→17:33)
[2016-12-03] MEDS: Timolol 0.5% OPTH.SOL* BTL BOTH EYES SCH ×2 (08:37→21:57)
[2016-12-03] MEDS: Polyethylene Glycol 3350* 17 GM PACKET PO SCH ×2 (08:41→20:53)
[2016-12-03] MEDS: Acetaminophen TAB* 325 MG PO PRN (17:36)
[2016-12-03] MEDS ORDERED: NS 0.9% 100 ML* 100 ML ONE (20:47)
[2016-12-03] MEDS: Enoxaparin(*) 40 MG/0.4 ML SYR SUBCUT SCH (20:52)
[2016-12-03] MEDS: Atorvastatin* 40 MG TAB PO SCH (20:52)
[2016-12-03] MEDS: Insulin GLARGINE(*) 1 UNITS UNIT SUBCUT SCH (20:56)
[2016-12-04] MEDS: Oxacillin(*) 2 GM in NS 0.9% 100 ML* 100 ML IVPB SCH ×6 (00:42→20:35)
[2016-12-04] MEDS: Polyethylene Glycol 3350* 17 GM PACKET PO SCH ×2 (08:04→20:36)
[2016-12-04] MEDS: Atenolol TAB* 50 MG PO SCH (08:14)
[2016-12-04] MEDS: metFORMIN* 500 MG TAB PO SCH ×2 (08:14→19:14)
[2016-12-04] MEDS: Losartan TAB* 25 MG PO SCH (08:14)
[2016-12-04] MEDS: amLODIPine TAB* 5 MG PO SCH (08:14)
[2016-12-04] MEDS: Docusate CAP* 100 MG PO SCH ×2 (08:14→20:36)
[2016-12-04] MEDS: Insulin LISPRO* 1 UNITS UNIT SUBCUT SCH ×3 (08:14→18:08)
[2016-12-04] MEDS: Timolol 0.5% OPTH.SOL* BTL BOTH EYES SCH ×2 (10:10→20:37)
[2016-12-04] MEDS: Ondansetron TAB* 4 MG PO PRN ×2 (13:49→18:04)
--- NOTE | 2016-12-04 14:09 | PN ---
Progress Note - Progress Note SOAP: Subjective: DOS: 12/04/15 CC: diarrhea 76 yo woman with Cervical and lumbar spine epidural abscess, s/p decompression of cervical abscess. Neck pain comes and goes, over all improving. Loose stools 1-2 times per day for 1 week, no abd pain, bloating, or fever. Appetite is good. Objective: [] Vital Signs Temp 36.6 C 12/04/16 08:08 Pulse 69 12/04/16 07:30 Resp 15 12/04/16 08:00 BP 143/50 12/04/16 07:30 Pulse Ox 100 12/04/16 07:30 Intake & Output 12/03/16 12/04/16 12/04/16 18:59 06:59 18:59 Intake Total 1480 1313 1535 Balance 1480 1313 1535 Intake: IV Fluids 270 563 50 NS (0.9%) 20 23 30 Oxacillin 250 540 20 IVPB 250 230 Oxacillin 250 230 Oral 6784 263 5517 Other: Estimated Void Medium Small # Bowel Movements 0 # Voids 3 0 Gen:AAOx3 HEENT:PERRL, MMM Neck:no mass Heart:no murmur, RRR Lungs:CTA BL Abd:+BS NTND soft Skin: no rash MSK: no spine tenderness, incision healing well Laboratory Results - last 24 hr 12/03/16 12/03/16 12/04/16 16:59 21:36 07:57 POC Glucose (mg/dL) 112 H 133 H 84 12/04/16 12:13 POC Glucose (mg/dL) 135 H Assessment: 1. cervical and lumbar epidural abscess due to MSSA 2. diarrhea, likely abx associated 3. Diabetes, T2 4. senior care abx 5. neck pain, improving Plan: 1. Day oxacillin 2 gm IV Q4hrs, tolerating it well; crp and bmp ordered for tomorrow; then keflex 500 mg po tid x14 days and follow up with me in 1-2 weeks. 2. expect diarrhea will improve after stopping oxacillin Discussed with Dr Montez
[2016-12-04] MEDS: Enoxaparin(*) 40 MG/0.4 ML SYR SUBCUT SCH (20:34)
[2016-12-04] MEDS: Insulin GLARGINE(*) 1 UNITS UNIT SUBCUT SCH (20:36)
[2016-12-04] MEDS: Atorvastatin* 40 MG TAB PO SCH (20:36)
[2016-12-05] MEDS: Cyclobenzaprine TAB* 10 MG PO PRN (00:11)
[2016-12-05] MEDS: Meclizine TAB* 12.5 MG PO PRN ×2 (00:11→09:04)
[2016-12-05] MEDS: Oxacillin(*) 2 GM in NS 0.9% 100 ML* 100 ML IVPB SCH ×3 (00:12→09:05)
[2016-12-05 06:05] LABS: BUN/Creatinine Ratio 16.4 (8-20); Calcium 9.5 mg/dL (8.6-10.3); EGFR Non-African American 77.7 (>60); Potassium 3.9 mmol/L (3.5-5.0)
[2016-12-05] MEDS: Insulin LISPRO* 1 UNITS UNIT SUBCUT SCH ×3 (08:17→16:54)
[2016-12-05] MEDS: Losartan TAB* 25 MG PO SCH (09:04)
[2016-12-05] MEDS: Polyethylene Glycol 3350* 17 GM PACKET PO SCH ×2 (09:04→21:12)
[2016-12-05] MEDS: Timolol 0.5% OPTH.SOL* BTL BOTH EYES SCH ×2 (09:05→21:17)
[2016-12-05] MEDS: Atenolol TAB* 50 MG PO SCH (09:05)
[2016-12-05] MEDS: amLODIPine TAB* 5 MG PO SCH (09:05)
[2016-12-05] MEDS: Docusate CAP* 100 MG PO SCH ×2 (09:05→21:13)
[2016-12-05 09:46] LABS: C Reactive Protein 4.03 mg/L (< 5.00)
[2016-12-05] MEDS: Acetaminophen TAB* 325 MG PO PRN (10:14)
[2016-12-05] MEDS ORDERED: NS 0.9% 1000 ML* 1,000 ML IV SCH (10:45)
[2016-12-05] MEDS: Cephalexin CAP* 500 MG PO SCH ×2 (16:53→21:13)
--- NOTE | 2016-12-05 17:27 | PN ---
Subjective Date of Service: 12/05/16 Interval History: HOSPITALIST PROGRESS NOTE Patient seen and examined at bedside. C/o lightheadedness while changing positions, has to hold on to things when walking to bathroom. Diarrhea and nausea are much improved. Family History: Unchanged from Admission Social History: Unchanged from Admission Past Medical History: Unchanged from Admission Objective Active Medications: Acetaminophen (Tylenol Tab*) 650 mg PO Q6H PRN PRN Reason: FEVER/PAIN Last Admin: 12/05/16 10:14 Dose: 650 mg Amlodipine Besylate (Norvasc Tab*) 10 mg PO DAILY [facility] Last Admin: 12/05/16 09:05 Dose: 10 mg Atenolol (Tenormin Tab*) 50 mg PO DAILY [facility] Last Admin: 12/05/16 09:05 Dose: 50 mg Atorvastatin Calcium (Lipitor*) 40 mg PO 2100 [facility] Last Admin: 12/04/16 20:36 Dose: 40 mg Cephalexin HCl (Keflex Cap*) 500 mg PO TID [facility] Last Admin: 12/05/16 16:53 Dose: 500 mg Cyclobenzaprine HCl (Flexeril Tab*) 10 mg PO TID PRN PRN Reason: SPASMS Last Admin: 12/05/16 00:11 Dose: 10 mg Dextrose (D50w Syringe*) 12.5 gm IV PUSH .FOR FS < 60 - SS PRN PRN Reason: FS < 60 Dextrose (D50w Syringe 50 Ml*) 12.5 gm IV PUSH .FOR FS < 60 - SS PRN PRN Reason: FS < 60 Docusate Sodium (Colace Cap*) 100 mg PO BID [facility] Last Admin: 12/05/16 09:05 Dose: 100 mg Enoxaparin Sodium (Lovenox(*)) 40 mg SUBCUT Q24H [facility] Last Admin: 12/04/16 20:34 Dose: 40 mg Heparin Sodium (Porcine) (Heparin Flush Picc/Ml/Cvc(*)) 1 ml FLUSH 0600,1800 [facility] PRN Reason: Protocol Last Admin: 12/05/16 17:13 Dose: Not Given Sodium Chloride (Ns 0.9% 1000 Ml*) 1,000 mls @ 100 mls/hr IV PER RATE [facility] Stop: 12/05/16 20:44 Last Admin: 12/05/16 11:20 Dose: 100 mls/hr Insulin Glargine (Lantus(*)) 30 units SUBCUT Q24H [facility] Last Admin: 12/04/16 20:36 Dose: 30 units Insulin Human Lispro (Humalog*) 5 units SUBCUT AC [facility] Last Admin: 12/05/16 16:54 Dose: 5 units Losartan Potassium (Cozaar Tab*) 25 mg PO DAILY [facility] Last Admin: 12/05/16 09:04 Dose: 25 mg Meclizine HCl (Antivert Tab*) 25 mg PO TID PRN PRN Reason: DIZZINESS Last Admin: 12/05/16 09:04 Dose: 25 mg Ondansetron HCl (Zofran Tab*) 4 mg PO Q8H PRN PRN Reason: NAUSEA Last Admin: 12/04/16 18:04 Dose: 4 mg Polyethylene Glycol/Electrolytes (Miralax*) 17 gm PO 0800,2100 [facility] Last Admin: 12/05/16 09:04 Dose: 17 gm Senna (Senokot Tab*) 1 tab PO BEDTIME PRN PRN Reason: CONSTIPATION Last Admin: 10/23/16 20:08 Dose: 1 tab Timolol Maleate (Timoptic 0.5% Opth*) 1 drop BOTH EYES BID [facility] Last Admin: 12/05/16 09:05 Dose: 1 drop Vital Signs 12/05/16 12/05/16 07:20 08:00 Temperature 98.0 F Pulse Rate 70 Respiratory 16 16 Rate Blood Pressure 132/53 (mmHg) O2 Sat by Pulse 97 Oximetry Oxygen Devices in Use Now: None Appearance: Elderly lady lying in bed in [facility]. Eyes: No Scleral Icterus Ears/Nose/Mouth/Throat: Mucous Membranes Moist Neck: Trachea Midline Respiratory: Symmetrical Chest Expansion and Respiratory Effort, Clear to Auscultation Cardiovascular: RRR - Normal S1 and S2 Abdominal: NL Sounds; No Tenderness; No Distention Extremities: No Edema Neurological: Alert and Oriented x 3, NL Muscle Strength and Tone Lines/Tubes/Other Access: Clean, Dry and Intact PICC Line Nutrition: Taking PO's Result Diagrams: 12/01/16 05:15 12/05/16 05:30 Assess/Plan/Problems-Billing Mrs. Peralta is a 76 yo F with PMHx of type 2 DM, HLD, HTN who was admitted with cervical and lumbar spine epidural abscesses now s/p surgical decompression of the cervical epidural abscess and medical management of the lumbar epidural abscess. - Patient Problems (1) Lightheadedness Comment: - Suspect secondary to dehydration associated with metformin induced diarrhea. - Orthostatic VS were negative, but her symptoms are orthostatic in nature. - Will give IVF and monitor. (2) MSSA (methicillin susceptible Staphylococcus aureus) septicemia Comment: - With cervical and lumbar epidural abscess. - Completed 56 days of Oxacillin. - Start cephalexin 500mg PO TID for 14 days. (3) Type 2 diabetes mellitus Comment: - Continue Lantus and Lispro. - Metformin discontinued due to diarrhea. (4) HTN (hypertension) Comment: - Better controlled. - Continue Atenolol, Amlodipine, and Losartan. (5) DVT prophylaxis Comment: - Lovenox. Status and Disposition: Swing. Anticipate d/c in AM if lightheadedness improved.
[2016-12-05] MEDS: Insulin GLARGINE(*) 1 UNITS UNIT SUBCUT SCH (21:12)
[2016-12-05] MEDS: Enoxaparin(*) 40 MG/0.4 ML SYR SUBCUT SCH (21:12)
[2016-12-05] MEDS: Atorvastatin* 40 MG TAB PO SCH (21:13)
[2016-12-06 08:19] VITALS: BP 140/57
[2016-12-06] MEDS: Insulin LISPRO* 1 UNITS UNIT SUBCUT SCH (08:47)
[2016-12-06] MEDS: Polyethylene Glycol 3350* 17 GM PACKET PO SCH (08:49)
[2016-12-06] MEDS: amLODIPine TAB* 5 MG PO SCH (08:50)
[2016-12-06] MEDS: Cephalexin CAP* 500 MG PO SCH (08:50)
[2016-12-06] MEDS: Losartan TAB* 25 MG PO SCH (08:50)
[2016-12-06] MEDS: Docusate CAP* 100 MG PO SCH (08:50)
[2016-12-06] MEDS: Atenolol TAB* 50 MG PO SCH (08:50)
[2016-12-06] MEDS: Timolol 0.5% OPTH.SOL* BTL BOTH EYES SCH (08:51)
--- NOTE | 2016-12-06 10:45 | PN ---
Progress Note - Progress Note SOAP: Subjective: DOS: 12/06/15 CC: diarrhea 76 yo woman with Cervical and lumbar spine epidural abscess, s/p decompression of cervical abscess. Neck pain comes and goes, over all improving. Loose stools resolved after stopping oxacillin and metformin. Had nausea and lightheaded yesterday, orthostatic, had IVF. No nausea or lightheadedness today. Appetite is good. Objective: [] Vital Signs Temp 36.6 C 12/06/16 07:19 Pulse 78 12/06/16 08:19 Resp 18 12/06/16 07:40 BP 140/57 12/06/16 08:19 Pulse Ox 98 12/06/16 07:19 Intake & Output 12/05/16 12/06/16 12/06/16 18:59 06:59 18:59 Intake Total 1999 1440 480 Balance 1999 1440 480 Intake: IV Fluids 1000 NS (0.9%) 1000 Oral 1999 440 480 Other: # Voids 2 Gen:AAOx3 HEENT:PERRL, MMM Neck:no mass Heart:no murmur, RRR Lungs:CTA BL Abd:+BS NTND soft Skin: no rash MSK: no spine tenderness, incision intact 12/03/16 12/03/16 12/03/16 11:45 16:59 21:36 Sodium Potassium Chloride Carbon Dioxide Anion Gap BUN Creatinine Est GFR ( Amer) Est GFR (Non-Af Amer) BUN/Creatinine Ratio Glucose POC Glucose (mg/dL) 205 H 112 H 133 H Calcium C-Reactive Protein 12/04/16 12/04/16 12/04/16 07:57 12:13 17:00 Sodium Potassium Chloride Carbon Dioxide Anion Gap BUN Creatinine Est GFR ( Amer) Est GFR (Non-Af Amer) BUN/Creatinine Ratio Glucose POC Glucose (mg/dL) 84 135 H 133 H Calcium C-Reactive Protein 12/04/16 12/05/16 12/05/16 20:43 05:30 08:08 Sodium 137 Potassium 3.9 Chloride 105 Carbon Dioxide 26 Anion Gap 6 BUN 12 Creatinine 0.73 Est GFR ( Amer) 100.0 Est GFR (Non-Af Amer) 77.7 BUN/Creatinine Ratio 16.4 Glucose 96 POC Glucose (mg/dL) 147 H 98 Calcium 9.5 C-Reactive Protein 4.03 12/05/16 12/05/16 12/05/16 11:26 16:56 20:57 Sodium Potassium Chloride Carbon Dioxide Anion Gap BUN Creatinine Est GFR ( Amer) Est GFR (Non-Af Amer) BUN/Creatinine Ratio Glucose POC Glucose (mg/dL) 225 H 181 H 181 H Calcium C-Reactive Protein 12/06/16 12/06/16 05:50 07:27 Sodium Potassium Chloride Carbon Dioxide Anion Gap BUN Creatinine Est GFR ( Amer) Est GFR (Non-Af Amer) BUN/Creatinine Ratio Glucose POC Glucose (mg/dL) 97 Calcium C-Reactive Protein 1.95 Assessment: 1. cervical and lumbar epidural abscess due to MSSA 2. diarrhea, likely abx associated, resolved 3. Diabetes, T2 4. manager terminal abx 5. neck pain, improving Plan: 1. keflex 500 mg po tid x14 days and follow up with me in 1-2 weeks. 2. cbc, cmp, crp in [address] Murillo
--- NOTE | 2016-12-07 12:25 | DS ---
Amended report to correct patient account number. DISCHARGE SUMMARY: DATE OF ADMISSION TO ACUTE STATUS: 10/08/16 DATE OF DISCHARGE TO SWING STATUS: 10/19/16 DATE OF DISCHARGE: 12/06/16 PRIMARY CARE PROVIDER: Dr. Cecy Marcus. INFECTIOUS DISEASE SPECIALIST: Dr. Song. NEUROSURGEON: Dr. Silvestre. DISCHARGE DIAGNOSES: 1. Methicillin-sensitive Staphylococcus aureus septicemia with cervical spine epidural abscess, status post surgical decompression. Status post decompressive laminectomy from C5-T2 with drainage of cervicothoracic epidural abscess. 2. Lumbar spine epidural abscess, treated conservatively with antibiotics. 3. GI intolerance to metformin. SECONDARY DIAGNOSES: 1. Type 2 diabetes. 2. Hyperlipidemia. 3. Hypertension. 4. Acute blood loss anemia secondary to surgery. 5. Acute hypoxemic respiratory failure after surgery. MEDICATION LIST: 1. Atorvastatin 40 mg p.o. daily. 2. Atenolol 50 mg p.o. b.i.d. 3. Aspirin 81 mg p.o. daily. 4. Albuterol HFA 2 puffs inhaled q.4 hours p.r.n. shortness of breath. 5. Latanoprost 0.005% 1 drop to both eyes at bedtime. 6. Amlodipine 10 mg p.o. q.a.m. 7. Lantus 30 units subcutaneously at bedtime. 8. Oxycodone/acetaminophen 5/325 mg 1 tablet p.o. q.4 hours p.r.n. pain, MDD 6 tablets, dispense 30, no refills. The [facility] Prescription Monitoring Program was consulted and she had last received the prescription for oxycodone on October 03. Reference number is [id number]. 9. MiraLAX 17 g p.o. b.i.d. 10. Meclizine 25 mg p.o. t.i.d. as needed for dizziness. 11. Losartan 25 mg p.o. daily. 12. Lispro 5 units subcutaneously before meals. 13. Cyclobenzaprine 10 mg p.o. t.i.d. as needed for muscle spasms. 14. Cephalexin 500 mg p.o. t.i.d. for 14 more days. 15. Acetaminophen 650 mg p.o. q.6 hours as needed for pain or fever. HOSPITAL COURSE: Ms. Peralta is a 76-year-old lady with a past medical history as stated above that was admitted to [facility] on October 08 with complaints of neck pain. She had a prolonged complicated acute hospital stay with MSSA septicemia, cervical spine epidural abscess, status post C5-T2 decompressive laminectomy with drainage of epidural abscess, also found to have a lumbar spine epidural abscess that was managed conservatively with antibiotics. As the patient required prolonged antibiotic therapy, she was transferred to Swing Status. For more details about her acute hospital stay , I refer you to Dr. Fernández's discharge summary from October 19. While in the Swing Status, the patient did well. She had progressive improvement of her pain to the point and now she is taking mostly acetaminophen and sporadically needs oxycodone. She made progress with physical therapy and was ambulating independently on the floor. Her white cell count remained normal. Her acute blood loss anemia has significantly improved. Her ESR trended down from 114 to 71 and her CRP has trended down from 67 to 1.9. Her renal function has remained normal throughout. One issue was with diabetes control. The patient was following a diet rich in carbohydrates and she received extensive education while in the hospital. We tried adding metformin to her regimen, but she had severe GI symptoms with nausea and significant diarrhea. She states that in the past, she had issues with metformin in an isolate form, but that she was able to tolerate Glucovance with no GI side effects. In the end, decision was made to continue Lantus and add Lispro with meals and she has had better glycemic control. Her fasting glucose has been below 100 and prandial has been below 200, but depending on what she chooses to eat, she can still have some spikes above 200. The patient was followed by Infectious Disease (Dr. Song) and his recommendation was to continue cephalexin for 14 more days and to follow up with him in 2 weeks. She will need a CBC, CMP, and CRP at that time. Her surgical wound has healed well. The stitches have already been removed and there is no sign of inflammation at this point. The patient did experience some episodes of lightheadedness that were felt to be secondary to dehydration associated with metformin-induced diarrhea. She responded well to IV hydration and this has now resolved. The patient is medically stable for discharge at this time. She will follow up with Dr. Marcus as outpatient. I did call Dr. Marcus to give her an update about this patient's prolonged hospital stay. PHYSICAL EXAM: Vital Signs: Temperature is 97.8, heart rate is 78, respiratory rate is 18, oxygen saturation is 98% on room air, blood pressure is 140/57. General: The patient is a pleasant elderly lady, sitting up in a chair , in no acute distress. CVS: Normal S1, S2. Regular rate and rhythm. Chest: Breath sounds bilaterally with no added sounds. Abdomen: Soft, nontender. Bowel sounds present. Extremities: No edema. Neuro: She is alert, awake, oriented x3. Able to move all 4 extremities. DIET: Consistent carb diet. ACTIVITY: As tolerated. DISPOSITION: To home. STATUS WHILE IN THE HOSPITAL: Inpatient/Swing. Please keep in mind, this is a summarized version of this patient's prolonged and complex hospital stay. If you need more information, please feel free to call me at [phone] or obtain the full medical records. TIME SPENT: Approximately 55 minutes were spent to complete this discharge. CC: Dr. Cecy Marcus; Dr. Song; Dr. Silvestre* [id number]/[facility] #: [id number] MTDD
== END 2016-12-06 11:10 | disposition home or self-care (01) | DRG 95 ==
LOC: SSU 14:09 → MED 15:56
PROVIDERS: ADMIT Internal Medicine; ATTEND Internal Medicine
PROC: 0HBRXZZ Excision of Toe Nail, External Approach (ICD-10-PCS; principal; 2016-11-16)
PROC: 0HBRXZZ Excision of Toe Nail, External Approach (ICD-10-PCS; 2016-11-16)
PROC: 0HBRXZZ Excision of Toe Nail, External Approach (ICD-10-PCS; 2016-11-16)
PROC: 0HBRXZZ Excision of Toe Nail, External Approach (ICD-10-PCS; 2016-11-16)
PROC: 0HBRXZZ Excision of Toe Nail, External Approach (ICD-10-PCS; 2016-11-16)
PROC: 0HBRXZZ Excision of Toe Nail, External Approach (ICD-10-PCS; 2016-11-16)
PROC: 0HBRXZZ Excision of Toe Nail, External Approach (ICD-10-PCS; 2016-11-16)
PROC: 0HBRXZZ Excision of Toe Nail, External Approach (ICD-10-PCS; 2016-11-16)
PROC: 0HBRXZZ Excision of Toe Nail, External Approach (ICD-10-PCS; 2016-11-16)
PROC: 0HBRXZZ Excision of Toe Nail, External Approach (ICD-10-PCS; 2016-11-16)
DX: G06.1 Intraspinal abscess and granuloma (principal); K52.1 Toxic gastroenteritis and colitis; E11.40 Type 2 diabetes mellitus with diabetic neuropathy, unspecified; D62 Acute posthemorrhagic anemia; B95.61 Methicillin susceptible Staphylococcus aureus infection as the cause of diseases classified elsewhere; B35.1 Tinea unguium; I10 Essential (primary) hypertension; M46.46 Discitis, unspecified, lumbar region; E78.5 Hyperlipidemia, unspecified; R11.0 Nausea; T38.3X5A Adverse effect of insulin and oral hypoglycemic [antidiabetic] drugs, initial encounter
CPT/HCPCS: 36415; 80048; 80053; 82565; 82947; 84520; 85014; 85018; 85025; 85027; 85049; 85652; 86140; 86141; A9270-GY; J1644; J1650; J2700

== ENCOUNTER 2018-05-21 06:29 | Day surgery (SDC) | payer MEDICARE ==
[~2018-05-21 06:29] MED LIST: Buffered Lidocaine 0.9% SYRIN* 5 ML/SYR SYRINGE INTRADERM ONE; Proparacaine 0.5% OPHTH.SOL* 15 ML BTL ONE; Sodium Citrate/Citric Acid* 15 ML UDC ONE; Sodium Citrate/Citric Acid* 15 ML UDC PO ONE; mitoMYcin 0.2 MG (0.02%) in Sterile Water for Inj* 1 ML OPHTHALMIC SCH
[2018-05-21] MEDS ORDERED: Midazolam* 1 MG/ML 2 ML VIAL (2 MG) ONE (07:32)
[2018-05-21] MEDS ORDERED: Naloxone* 0.4 MG/ML 1 ML VIAL IV PRN (08:10)
[2018-05-21 08:11] VITALS: BP 115/42
--- NOTE | 2018-05-22 04:49 | OP ---
DATE OF OPERATION: 05/21/18 - [facility] DATE OF : 42 SURGEON: Dmitriy Pereira MD ANESTHESIA: Local with MAC. PREOPERATIVE DIAGNOSIS: Glaucoma, right eye. POSTOPERATIVE DIAGNOSIS: Glaucoma, right eye. OPERATIVE PROCEDURE: XEN Gel implant, right eye. COMPLICATIONS: None. DESCRIPTION OF PROCEDURE: The patient was prepped and draped in usual sterile fashion, lid speculum was placed. Mitomycin-C 0.2 mg/mL 0.1 mL injected subconjunctivally in the superior fornix and massaged posteriorly and the eye was thoroughly irrigated with balanced salt solution. Paracentesis incision made at the 9 o'clock position and then a 1.8 mm clear corneal incision made at the 12 o'clock position. Anterior chamber inflated with Healon after giving 1% nonpreserved intracameral lidocaine. The XEN implant was placed transsclerally using the healthcare or medical, 3 mm posterior to the limbus. Healon irrigated out with balanced salt solution. Topical Maxitrol drops were given. [id number]/[facility] #: [id number] [facility]ITAL[facility]
== END 2018-05-21 08:15 | disposition home or self-care (01) ==
LOC: OREAST 06:29
PROVIDERS: ATTEND Specialist
DX: H40.1112 Primary open-angle glaucoma, right eye, moderate stage (principal); H40.1121 Primary open-angle glaucoma, left eye, mild stage; Z96.1 Presence of intraocular lens; E11.3293 Type 2 diabetes mellitus with mild nonproliferative diabetic retinopathy without macular edema, bilateral; Z79.4 Long term (current) use of insulin; I10 Essential (primary) hypertension; E78.00 Pure hypercholesterolemia, unspecified; K21.9 Gastro-esophageal reflux disease without esophagitis; Z79.84 Long term (current) use of oral hypoglycemic drugs; I65.29 Occlusion and stenosis of unspecified carotid artery
CPT/HCPCS: A9270-GY; C1725; J2250; J9280

== ENCOUNTER 2018-11-26 06:20 | Day surgery (SDC) | payer MEDICARE ==
[~2018-11-26 06:20] MED LIST changes: +Acetaminophen TAB* 325 MG PO PRN; -Buffered Lidocaine 0.9% SYRIN* 5 ML/SYR SYRINGE INTRADERM ONE; +Buffered Lidocaine 1% SYRIN* 1 ML/SYRINGE INTRADERM ONE; -Sodium Citrate/Citric Acid* 15 ML UDC ONE; -Sodium Citrate/Citric Acid* 15 ML UDC PO ONE; -mitoMYcin 0.2 MG (0.02%) in Sterile Water for Inj* 1 ML OPHTHALMIC SCH; +mitoMYcin PWD* 0.2 MG in Sterile Water for Inj* 1 ML OPHTHALMIC SCH
[2018-11-26] MEDS ORDERED: Bupivacaine 0.25% SDV PF* 10 ML VIAL INJ ONE (07:05)
[2018-11-26] MEDS ORDERED: Triamcinolone Acetonide* 40 MG/ML 1 ML VIAL ONE (07:06)
[2018-11-26] MEDS ORDERED: BSS OPTH.SOL* BTL ONE (07:06)
[2018-11-26] MEDS ORDERED: Sodium Bicarbonate 8.4% SYR* 10 ML SYRINGE ONE (07:06)
[2018-11-26] MEDS ORDERED: Atropine 1% OPHTH.SOL* 2 ML BOT - 2 ML ONE (07:06)
[2018-11-26] MEDS ORDERED: Neomycin/Polymy/Dex OPTH.SUSP* MAXITROL 0.1% 5 ML ONE (07:07)
[2018-11-26] MEDS ORDERED: Hyaluronidase OVINE* 200 UNIT/ML ML SUBCUT ONE (07:07)
[2018-11-26] MEDS ORDERED: Povidone Iodine 5% OPTH* 30 ML BTL ONE (07:07)
[2018-11-26] MEDS ORDERED: Lidocaine 2% EPI 1:200000 MPF*10-20 ML VIAL ONE (07:07)
[2018-11-26] MEDS ORDERED: Carbachol 0.01% OPH.SOL* 1.5 ML OPHTH.SOLN ONE (07:12)
[2018-11-26] MEDS ORDERED: Ondansetron INJ* 2 MG/ML VIAL ONE (07:20)
[2018-11-26] MEDS ORDERED: fentaNYL* 50 MCG/ML 2 ML VIAL (100 MCG VIAL) ONE (07:20)
[2018-11-26] MEDS ORDERED: Midazolam* 1 MG/ML 2 ML VIAL (2 MG) ONE (07:20)
[2018-11-26] MEDS ORDERED: Propofol* 10 MG/ML 20 ML BTL ONE (07:20)
[2018-11-26] MEDS ORDERED: Lidocaine 2% PF * 5 ML VIAL ONE (07:20)
[2018-11-26 08:25] VITALS: BP 118/45
--- NOTE | 2018-11-26 12:01 | OP ---
OPERATIVE REPORT: DATE OF OPERATION: 11/26/18 DATE OF : 42 SURGEON: Dr. Dmitriy Pereira. ANESTHESIA: Local with MAC. PRE-OP DIAGNOSIS: Glaucoma, right. POST-OP DIAGNOSIS: Glaucoma, right. OPERATIVE PROCEDURE: Trabeculectomy, right. COMPLICATIONS: None. DESCRIPTION OF PROCEDURE: The patient was given retrobulbar anesthesia in the operating room, 50:50 mixture of 2% lidocaine with epinephrine and 0.25 of Marcaine, 4 cc injected into the muscle, without difficulty. The eye was prepped and draped in the usual sterile fashion. Lid speculum was placed. Superior limbal traction suture 6-0 silk was placed and the eye rotated inferiorly. A fornix-based conjunctival peritomy was performed centered at the 1 o'clock position. Hemostasis achieved with cau dianne. Mitomycin-C 0.2 mg/mL was placed subconjunctivally for 90 seconds and then thoroughly irrigate d with 2 bottles of balanced salt solution. A paracentesis made at the 8 o'clock position. Miostat instilled into the anterior chamber. A triangular limbal-based half scleral thickness scleral flap w as created at the 1 o'clock position with the crescent blade. Anterior chamber entered using the 3 m m keratome. A little bit of DisCoVisc inserted into the anterior chamber. A 3 x 1 mm trabecular bloc k excised using the Terrie punch. Peripheral iridectomy performed with Vannas scissors. The flap sut ured with one 10-0 nylon suture at the apex and then the conjunctiva closed with a running locking 10 -0 nylon suture along the limbus and then the additional closure with 9-0 Vicryl sutures. The tracti on sutures were removed, anterior chamber inflated with balanced salt solution. The wounds were chec ked and found to be watertight. Topical Maxitrol and atropine was given. Kenalog 40 mg/mL, 1 mL was injected subtenon infratemporally and then the eye was patched. [id number]/[facility] #: [id number]
== END 2018-11-26 08:37 | disposition home or self-care (01) ==
LOC: OREAST 06:20
PROVIDERS: ATTEND Specialist
DX: H40.1121 Primary open-angle glaucoma, left eye, mild stage (principal); Z96.1 Presence of intraocular lens; E11.3293 Type 2 diabetes mellitus with mild nonproliferative diabetic retinopathy without macular edema, bilateral; Z79.4 Long term (current) use of insulin; Z79.84 Long term (current) use of oral hypoglycemic drugs; I10 Essential (primary) hypertension; E78.00 Pure hypercholesterolemia, unspecified; K21.9 Gastro-esophageal reflux disease without esophagitis; F41.8 Other specified anxiety disorders
CPT/HCPCS: A9270-GY; J2250; J2405; J2704; J3010; J3301; J3471; J3490; J9280

== ENCOUNTER 2020-09-18 22:44 | Inpatient (IN) ==
[2020-09-18 23:35] LABS: ABS Monocytes 0.3 10^3/ul (0-0.8); ABS Neutrophils 1.5 10^3/ul (1.5-7.7); Eosinophil % 0.6 %; Hematocrit 32 % (35-47); Hemoglobin 10.7 g/dL (12.0-16.0); Lymphocyte % 34.9 %; Mean Corpuscular HGB Conc 34 g/dL (31-36); Mean Corpuscular Hemoglobin 27 pg (27-31); Mean Corpuscular Volume 80 fL (80-97); Mean Platelet Volume 8.6 fL (7.4-10.4); Nucleated Red Blood Cells % 0.3; Platelet Count 277 10^3/uL (150-450); Red Blood Count 4.01 10^6 /uL (3.70-4.87); Red Cell Distribution Width 16 % (10-15); White Blood Count 2.9 10^3/uL (3.5-10.8)
[2020-09-18 23:44] LABS: INR 1.03 (0.82-1.09)
[2020-09-18 23:51] LABS: ALT 18 U/L (7-52); AST 29 U/L (13-39); Albumin 4.1 g/dL (3.2-5.2); Albumin/Globulin Ratio 1.1 (1-3); Alkaline Phosphatase 33 U/L (34-104); Anion Gap 9 mmol/L (2-11); BUN/Creatinine Ratio 20.5 (8-20); Blood Urea Nitrogen 25 mg/dL (6-24); C Reactive Protein 142.06 mg/L (<8.01); CO2 Carbon Dioxide 21 mmol/L (22-32); Chloride 106 mmol/L (101-111); EGFR African American 51.4 (>60); EGFR Non-African American 42.5 (>60); Globulin 3.8 g/dL (2-4); Glucose 190 mg/dL (70-100); Potassium 4.1 mmol/L (3.5-5.0); Sodium 136 mmol/L (135-145); Total Protein 7.9 g/dL (6.4-8.9)
[2020-09-18 23:52] LABS: Troponin I 0.01 ng/mL (<0.03)
[2020-09-19 00:22] LABS: Influenza A Molecular Negative (Negative); Influenza B Molecular Negative (Negative)
[2020-09-19] MEDS ORDERED: Ondansetron 4 mg VIAL 2 MG/ML 2 ml VIAL IV PRN (01:02)
[2020-09-19] MEDS ORDERED: Dextrose 50% Syringe 50 ml 25 GM/50 ML SYRINGE IV PUSH PRN (01:16)
[2020-09-19] MEDS ORDERED: Remdesivir 5 MG/ML LIQ IV Vial 200 MG in NS 0.9% 250 ml 210 ML IV ONE (01:17)
[2020-09-19] MEDS ORDERED: Iodixanol (CONTRAST) 320 MG/ML 100 ML SDV IV ONE (01:20)
[2020-09-19] MEDS ORDERED: NS 0.9% 1000 ml BAG 1,000 ML IV.FLUID IV ONE (01:21)
[2020-09-19] MEDS ORDERED: Enoxaparin 40 MG/0.4 ML SYR SUBCUT SCH (02:00)
[2020-09-19] MEDS ORDERED: Triamcinolone 0.5% OINT 1 TUBE TOPICAL PRN (02:01)
[2020-09-19 02:04] LABS: Urine Appearance Cloudy; Urine Bilirubin Negative (Negative); Urine Blood Negative (Negative); Urine Color Yellow; Urine Glucose Negative (Negative); Urine Ketones Negative (Negative); Urine Nitrite Negative (Negative); Urine Protein 3+(>=500 mg/dL) (Negative); Urine Specific Gravity 1.033 (1.010-1.030); Urine Urobilinogen Negative (Negative)
[2020-09-19 02:23] LABS: Urine Bacteria 1+ (Absent); Urine Red Blood Cell Trace(0-2/hpf) (Absent); Urine Squamous Epithelial Cell Present (Absent); Urine White Blood Cell 2+(11-20/hpf) (Absent)
[2020-09-19 02:35] LABS: Total Iron Binding Capacity 382 mcg/dL (250-450); Transferrin 273 mg/dL (203-362)
[2020-09-19 02:36] LABS: % Iron Saturation 5 % (15-55); Iron < 20 ug/dL (50-212); Unsaturated Iron Binding < 367 ug/dL
[2020-09-19] MEDS: Latanoprost 0.005% 2.5 ml BTL LEFT EYE SCH ×2 (04:24→19:00)
[2020-09-19 05:43] LABS: ABS Lymphocytes 1.3 10^3/ul (1.0-4.8); ABS Monocytes 0.3 10^3/ul (0-0.8); ABS Neutrophils 1.6 10^3/ul (1.5-7.7); Eosinophil % 0.4 %; Hematocrit 28 % (35-47); Hemoglobin 9.5 g/dL (12.0-16.0); Lymphocyte % 41.1 %; Mean Corpuscular HGB Conc 34 g/dL (31-36); Mean Corpuscular Hemoglobin 27 pg (27-31); Mean Corpuscular Volume 81 fL (80-97); Mean Platelet Volume 8.4 fL (7.4-10.4); Platelet Count 254 10^3/uL (150-450); Red Blood Count 3.51 10^6 /uL (3.70-4.87); Red Cell Distribution Width 15 % (10-15); White Blood Count 3.2 10^3/uL (3.5-10.8)
[2020-09-19 06:04] LABS: BUN/Creatinine Ratio 20.8 (8-20); Calcium 8.2 mg/dL (8.6-10.3); EGFR African American 67.8 (>60); EGFR Non-African American 56.1 (>60); Potassium 3.8 mmol/L (3.5-5.0)
[2020-09-19 06:43] LABS: Ferritin 409.2 ng/mL (11-307)
[2020-09-19] MEDS: Timolol 0.5% OPTH.SOL BTL LEFT EYE SCH (08:29)
[2020-09-19] MEDS ORDERED: Furosemide 40 mg/4 ml IV VIAL IV SLOW PU ONE (08:51)
[2020-09-19] MEDS: Iron Sucrose 200 MG in NS 0.9% 100 ml BAG 100 ML IVPB SCH (09:20)
[2020-09-19 14:42] LABS: Glucose Confirmatory 529 mg/dL (70-100)
[2020-09-19] MEDS ORDERED: Furosemide 20 mg/2 ml IV VIAL IV SLOW PU ONE (15:02)
[2020-09-19 17:45] LABS: BUN/Creatinine Ratio 24.8 (8-20); Calcium 8.5 mg/dL (8.6-10.3); EGFR African American 51.9 (>60); EGFR Non-African American 42.9 (>60); Magnesium 1.6 mg/dL (1.9-2.7); Potassium 3.9 mmol/L (3.5-5.0)
[2020-09-19] MEDS ORDERED: Insulin GLARGINE 100 un/ml 10 ml VIAL SUBCUT SCH (18:00)
[2020-09-19] MEDS ORDERED: Magnesium Sulfate 2 gm BAG 2 GM/50 ML BAG IVPB ONE (18:24)
[2020-09-19] MEDS ORDERED: Potassium Chlor 20 meq TAB.ER PO ONE (18:24)
[2020-09-19] MEDS: CMC:Fenofibrate 145 mg TAB (NF) PO SCH (18:59)
[2020-09-19] MEDS: Aspirin EC 81 mg TAB.EC (enteric coated) PO SCH (18:59)
[2020-09-19] MEDS: Insulin GLARGINE 100 un/ml 10 ml VIAL SUBCUT SCH (19:00)
[2020-09-19] MEDS: Enoxaparin 40 MG/0.4 ML SYR SUBCUT SCH (20:56)
[2020-09-20] MEDS: Remdesivir 5 MG/ML LIQ IV Vial 100 MG in NS 0.9% 250 ml 230 ML IV SCH (01:42)
[2020-09-20 05:58] LABS: ABS Lymphocytes 1.6 10^3/ul (1.0-4.8); ABS Monocytes 0.6 10^3/ul (0-0.8); Hematocrit 28 % (35-47); Hemoglobin 9.3 g/dL (12.0-16.0); Lymphocyte % 19.1 %; Mean Corpuscular HGB Conc 33 g/dL (31-36); Mean Corpuscular Hemoglobin 26 pg (27-31); Mean Corpuscular Volume 81 fL (80-97); Mean Platelet Volume 8.7 fL (7.4-10.4); Nucleated Red Blood Cells % 0.1; Platelet Count 347 10^3/uL (150-450); Red Blood Count 3.51 10^6 /uL (3.70-4.87); Red Cell Distribution Width 16 % (10-15); White Blood Count 8.2 10^3/uL (3.5-10.8)
[2020-09-20 06:20] LABS: BUN/Creatinine Ratio 28.6 (8-20); Calcium 8.7 mg/dL (8.6-10.3); EGFR African American 49.6 (>60); Magnesium 2.4 mg/dL (1.9-2.7); Phosphorus 2.9 mg/dL (2.5-5.0); Potassium 4.1 mmol/L (3.5-5.0)
[2020-09-20] MEDS: Iron Sucrose 200 MG in NS 0.9% 100 ml BAG 100 ML IVPB SCH (09:11)
[2020-09-20] MEDS: Timolol 0.5% OPTH.SOL BTL LEFT EYE SCH (09:12)
[2020-09-20] MEDS ORDERED: Furosemide 20 mg/2 ml IV VIAL IV SLOW PU ONE (09:59)
[2020-09-20] MEDS: Enoxaparin 40 MG/0.4 ML SYR SUBCUT SCH (10:35)
[2020-09-20] MEDS: Enoxaparin 30 MG/0.3 ML SYR SUBCUT SCH ×2 (10:46→19:59)
[2020-09-20] MEDS: Aspirin EC 81 mg TAB.EC (enteric coated) PO SCH (18:06)
[2020-09-20] MEDS: Insulin GLARGINE 100 un/ml 10 ml VIAL SUBCUT SCH (18:06)
[2020-09-20] MEDS: CMC:Fenofibrate 145 mg TAB (NF) PO SCH (18:06)
[2020-09-20] MEDS: Latanoprost 0.005% 2.5 ml BTL LEFT EYE SCH (18:12)
[2020-09-20 20:40] LABS: BUN/Creatinine Ratio 34.9 (8-20); Calcium 8.7 mg/dL (8.6-10.3); EGFR African American 49.6 (>60); Potassium 4.2 mmol/L (3.5-5.0)
[2020-09-21] MEDS: Remdesivir 5 MG/ML LIQ IV Vial 100 MG in NS 0.9% 250 ml 230 ML IV SCH (02:56)
[2020-09-21 05:20] LABS: ABS Basophils 0.1 10^3/ul (0-0.2); ABS Lymphocytes 1.4 10^3/ul (1.0-4.8); ABS Monocytes 0.5 10^3/ul (0-0.8); ABS Neutrophils 7.1 10^3/ul (1.5-7.7); Eosinophil % 0.1 %; Hematocrit 28 % (35-47); Hemoglobin 9.3 g/dL (12.0-16.0); Lymphocyte % 15.4 %; Mean Corpuscular HGB Conc 33 g/dL (31-36); Mean Corpuscular Hemoglobin 26 pg (27-31); Mean Corpuscular Volume 80 fL (80-97); Mean Platelet Volume 8.4 fL (7.4-10.4); Nucleated Red Blood Cells % 0.1; Platelet Count 349 10^3/uL (150-450); Red Blood Count 3.54 10^6 /uL (3.70-4.87); Red Cell Distribution Width 16 % (10-15); White Blood Count 9.1 10^3/uL (3.5-10.8)
[2020-09-21 05:33] LABS: BUN/Creatinine Ratio 39.2 (8-20); Blood Urea Nitrogen 40 mg/dL (6-24); CO2 Carbon Dioxide 20 mmol/L (22-32); Calcium 8.2 mg/dL (8.6-10.3); Chloride 110 mmol/L (101-111); EGFR African American 63.3 (>60); EGFR Non-African American 52.3 (>60); Glucose 100 mg/dL (70-100); Phosphorus 3.3 mg/dL (2.5-5.0); Sodium 139 mmol/L (135-145)
[2020-09-21 05:37] LABS: Anion Gap 9 mmol/L (2-11)
[2020-09-21 07:12] LABS: Magnesium 2.2 mg/dL (1.9-2.7); Potassium Redraw 3.7 mmol/L (3.5-5.0)
[2020-09-21] MEDS: Enoxaparin 30 MG/0.3 ML SYR SUBCUT SCH ×2 (08:31→20:27)
[2020-09-21] MEDS: Iron Sucrose 200 MG in NS 0.9% 100 ml BAG 100 ML IVPB SCH (08:32)
[2020-09-21] MEDS: Timolol 0.5% OPTH.SOL BTL LEFT EYE SCH (08:39)
[2020-09-21] MEDS: Aspirin EC 81 mg TAB.EC (enteric coated) PO SCH (17:54)
[2020-09-21] MEDS: Latanoprost 0.005% 2.5 ml BTL LEFT EYE SCH (17:55)
[2020-09-21] MEDS: Insulin GLARGINE 100 un/ml 10 ml VIAL SUBCUT SCH (17:55)
[2020-09-21] MEDS: CMC:Fenofibrate 145 mg TAB (NF) PO SCH (17:55)
[2020-09-22] MEDS: Remdesivir 5 MG/ML LIQ IV Vial 100 MG in NS 0.9% 250 ml 230 ML IV SCH (02:11)
[2020-09-22 05:43] LABS: Hematocrit 29 % (35-47); Hemoglobin 9.5 g/dL (12.0-16.0); Mean Corpuscular HGB Conc 32 g/dL (31-36); Mean Corpuscular Hemoglobin 26 pg (27-31); Mean Corpuscular Volume 81 fL (80-97); Mean Platelet Volume 8.4 fL (7.4-10.4); Platelet Count 429 10^3/uL (150-450); Red Blood Count 3.64 10^6 /uL (3.70-4.87); Red Cell Distribution Width 16 % (10-15); White Blood Count 11.3 10^3/uL (3.5-10.8)
[2020-09-22 05:50] LABS: Calcium 8.2 mg/dL (8.6-10.3); Potassium 3.9 mmol/L (3.5-5.0)
[2020-09-22 05:55] LABS: BUN/Creatinine Ratio 37.9 (8-20); EGFR African American 62.5 (>60); EGFR Non-African American 51.7 (>60)
[2020-09-22 06:43] LABS: ABS Basophils 0.1 10^3/ul (0-0.2); ABS Lymphocytes 1.8 10^3/ul (1.0-4.8); ABS Monocytes 0.8 10^3/ul (0-0.8); ABS Neutrophils 8.7 10^3/ul (1.5-7.7); Lymphocyte % 15.7 %
[2020-09-22] MEDS: Enoxaparin 30 MG/0.3 ML SYR SUBCUT SCH ×2 (09:32→20:48)
[2020-09-22] MEDS: Timolol 0.5% OPTH.SOL BTL LEFT EYE SCH (09:33)
[2020-09-22] MEDS: Iron Sucrose 200 MG in NS 0.9% 100 ml BAG 100 ML IVPB SCH (09:34)
[2020-09-22] MEDS: Insulin GLARGINE 100 un/ml 10 ml VIAL SUBCUT SCH (17:16)
[2020-09-22] MEDS: CMC:Fenofibrate 145 mg TAB (NF) PO SCH (17:18)
[2020-09-22] MEDS: Aspirin EC 81 mg TAB.EC (enteric coated) PO SCH (17:18)
[2020-09-22] MEDS: Latanoprost 0.005% 2.5 ml BTL LEFT EYE SCH (17:19)
[2020-09-23] MEDS: Remdesivir 5 MG/ML LIQ IV Vial 100 MG in NS 0.9% 250 ml 230 ML IV SCH (02:09)
[2020-09-23] MEDS: Enoxaparin 30 MG/0.3 ML SYR SUBCUT SCH ×2 (09:26→20:05)
[2020-09-23] MEDS: Iron Sucrose 200 MG in NS 0.9% 100 ml BAG 100 ML IVPB SCH (09:27)
[2020-09-23] MEDS: Timolol 0.5% OPTH.SOL BTL LEFT EYE SCH (09:32)
[2020-09-23 17:28] LABS: Hematocrit 32 % (35-47); Hemoglobin 11.2 g/dL (12.0-16.0); Mean Corpuscular HGB Conc 35 g/dL (31-36); Mean Corpuscular Hemoglobin 28 pg (27-31); Mean Corpuscular Volume 80 fL (80-97); Platelet Count 534 10^3/uL (150-450); Red Blood Count 3.98 10^6 /uL (3.70-4.87); Red Cell Distribution Width 16 % (10-15); White Blood Count 11.8 10^3/uL (3.5-10.8)
[2020-09-23 17:53] LABS: BUN/Creatinine Ratio 28.8 (8-20); Blood Urea Nitrogen 30 mg/dL (6-24); C Reactive Protein 21.74 mg/L (<8.01); CO2 Carbon Dioxide 22 mmol/L (22-32); Calcium 8.4 mg/dL (8.6-10.3); Chloride 104 mmol/L (101-111); EGFR African American 61.9 (>60); EGFR Non-African American 51.1 (>60); Glucose 292 mg/dL (70-100); Phosphorus 2.6 mg/dL (2.5-5.0); Sodium 135 mmol/L (135-145)
[2020-09-23 17:57] LABS: Anion Gap 9 mmol/L (2-11)
[2020-09-23] MEDS: Insulin GLARGINE 100 un/ml 10 ml VIAL SUBCUT SCH (18:12)
[2020-09-23] MEDS: Latanoprost 0.005% 2.5 ml BTL LEFT EYE SCH (18:13)
[2020-09-23] MEDS: Aspirin EC 81 mg TAB.EC (enteric coated) PO SCH (18:13)
[2020-09-23] MEDS: CMC:Fenofibrate 145 mg TAB (NF) PO SCH (18:13)
[2020-09-23 20:41] LABS: Glucose Confirmatory 355 mg/dL (70-100)
[2020-09-24] MEDS: Enoxaparin 30 MG/0.3 ML SYR SUBCUT SCH ×2 (08:10→20:29)
[2020-09-24] MEDS: Timolol 0.5% OPTH.SOL BTL LEFT EYE SCH (08:11)
[2020-09-24] MEDS: Insulin GLARGINE 100 un/ml 10 ml VIAL SUBCUT SCH (18:14)
[2020-09-24] MEDS: CMC:Fenofibrate 145 mg TAB (NF) PO SCH (18:15)
[2020-09-24] MEDS: Latanoprost 0.005% 2.5 ml BTL LEFT EYE SCH (18:15)
[2020-09-24] MEDS: Aspirin EC 81 mg TAB.EC (enteric coated) PO SCH (18:15)
[2020-09-25 05:51] LABS: Hematocrit 30 % (35-47); Hemoglobin 9.8 g/dL (12.0-16.0); Mean Corpuscular HGB Conc 33 g/dL (31-36); Mean Corpuscular Hemoglobin 26 pg (27-31); Mean Corpuscular Volume 81 fL (80-97); Mean Platelet Volume 7.7 fL (7.4-10.4); Platelet Count 482 10^3/uL (150-450); Red Blood Count 3.71 10^6 /uL (3.70-4.87); Red Cell Distribution Width 16 % (10-15); White Blood Count 11.2 10^3/uL (3.5-10.8)
[2020-09-25 06:08] LABS: BUN/Creatinine Ratio 24.7 (8-20); Calcium 8.3 mg/dL (8.6-10.3); EGFR Non-African American 55.4 (>60); Potassium 3.7 mmol/L (3.5-5.0)
[2020-09-25 07:41] LABS: ABS Eosinophils 0.2 10^3/ul (0-0.6); ABS Lymphocytes 2.1 10^3/ul (1.0-4.8); ABS Monocytes 0.9 10^3/ul (0-0.8); Eosinophil % 1.8 %; Lymphocyte % 18.5 %; Nucleated Red Blood Cells % 0.1
[2020-09-25 07:43] LABS: Polychromasia 1+
[2020-09-25] MEDS: Enoxaparin 30 MG/0.3 ML SYR SUBCUT SCH ×2 (10:10→22:50)
[2020-09-25] MEDS: Timolol 0.5% OPTH.SOL BTL LEFT EYE SCH (10:13)
[2020-09-25] MEDS: Latanoprost 0.005% 2.5 ml BTL LEFT EYE SCH (17:57)
[2020-09-25] MEDS: CMC:Fenofibrate 145 mg TAB (NF) PO SCH (18:06)
[2020-09-25] MEDS: Aspirin EC 81 mg TAB.EC (enteric coated) PO SCH (18:06)
[2020-09-25] MEDS: Insulin GLARGINE 100 un/ml 10 ml VIAL SUBCUT SCH (19:17)
[2020-09-26 06:03] LABS: Hematocrit 30 % (35-47); Hemoglobin 9.9 g/dL (12.0-16.0); Mean Corpuscular HGB Conc 33 g/dL (31-36); Mean Corpuscular Hemoglobin 26 pg (27-31); Mean Corpuscular Volume 81 fL (80-97); Mean Platelet Volume 7.8 fL (7.4-10.4); Platelet Count 479 10^3/uL (150-450); Red Blood Count 3.74 10^6 /uL (3.70-4.87); Red Cell Distribution Width 16 % (10-15); White Blood Count 12.8 10^3/uL (3.5-10.8)
[2020-09-26 07:20] LABS: ABS Eosinophils 0.1 10^3/ul (0-0.6); ABS Monocytes 0.9 10^3/ul (0-0.8); ABS Neutrophils 9.8 10^3/ul (1.5-7.7); Lymphocyte % 15.2 %
[2020-09-26] MEDS: Enoxaparin 30 MG/0.3 ML SYR SUBCUT SCH ×2 (07:47→22:07)
[2020-09-26] MEDS: Timolol 0.5% OPTH.SOL BTL LEFT EYE SCH (07:52)
[2020-09-26] MEDS: Insulin GLARGINE 100 un/ml 10 ml VIAL SUBCUT SCH (17:19)
[2020-09-26] MEDS: Latanoprost 0.005% 2.5 ml BTL LEFT EYE SCH (17:20)
[2020-09-26] MEDS: CMC:Fenofibrate 145 mg TAB (NF) PO SCH (17:20)
[2020-09-26] MEDS: Aspirin EC 81 mg TAB.EC (enteric coated) PO SCH (17:20)
[2020-09-27 07:08] LABS: Hematocrit 30 % (35-47); Hemoglobin 9.8 g/dL (12.0-16.0); Mean Corpuscular HGB Conc 33 g/dL (31-36); Mean Corpuscular Hemoglobin 27 pg (27-31); Mean Corpuscular Volume 81 fL (80-97); Mean Platelet Volume 7.8 fL (7.4-10.4); Platelet Count 450 10^3/uL (150-450); Red Blood Count 3.65 10^6 /uL (3.70-4.87); Red Cell Distribution Width 16 % (10-15); White Blood Count 12.8 10^3/uL (3.5-10.8)
[2020-09-27 07:40] VITALS: BP 133/46
[2020-09-27] MEDS: Enoxaparin 30 MG/0.3 ML SYR SUBCUT SCH (07:41)
[2020-09-27] MEDS: Timolol 0.5% OPTH.SOL BTL LEFT EYE SCH (07:42)
[2020-09-27 07:44] LABS: BUN/Creatinine Ratio 32.6 (8-20); Calcium 8.6 mg/dL (8.6-10.3); EGFR African American 68.7 (>60); EGFR Non-African American 56.7 (>60); Potassium 3.8 mmol/L (3.5-5.0)
[2020-09-27 08:07] LABS: ABS Basophils 0.1 10^3/ul (0-0.2); ABS Eosinophils 0.2 10^3/ul (0-0.6); ABS Lymphocytes 2.7 10^3/ul (1.0-4.8); ABS Monocytes 0.8 10^3/ul (0-0.8); ABS Neutrophils 9.1 10^3/ul (1.5-7.7); Eosinophil % 1.2 %; Lymphocyte % 20.8 %
== END 2020-09-27 13:30 | disposition home or self-care (01) ==
LOC: ED 22:44 → ICU 09-19 01:46 → MED 09-24 14:36
PROVIDERS: ADMIT Internal Medicine; ATTEND Internal Medicine

== ENCOUNTER 2022-04-12 23:08 | Inpatient (IN) ==
[2022-04-13 00:32] LABS: Hematocrit 28 % (35-47); Hemoglobin 9.2 g/dL (12.0-16.0); Mean Corpuscular HGB Conc 33 g/dL (31-36); Mean Corpuscular Hemoglobin 27 pg (27-31); Mean Corpuscular Volume 83 fL (80-97); Mean Platelet Volume 9.3 fL (7.4-10.4); Platelet Count 128 10^3/uL (150-450); Red Blood Count 3.43 10^6 /uL (3.70-4.87); Red Cell Distribution Width 15 % (10-15)
[2022-04-13 00:39] LABS: ABS Neutrophils 0.5 10^3/ul (1.5-7.7)
[2022-04-13 00:41] LABS: Activated Partial Thrombo Time 30.3 seconds (26.0-38.0); INR 1.02 (0.86-1.15)
[2022-04-13] MEDS ORDERED: Piperacillin/Tazobac ADVAN 3.375 GM in NS 0.9% 100 ml BAG 100 ML IV ONE (00:41)
[2022-04-13 01:36] LABS: Albumin 4.1 g/dL (3.2-5.2); Albumin/Globulin Ratio 1.5 (1-3); C Reactive Protein 64.17 mg/L (<8.01); Calcium 9.6 mg/dL (8.6-10.3); Globulin 2.8 g/dL (2-4); Potassium 3.9 mmol/L (3.5-5.0); Total Bilirubin 0.6 mg/dL (0.2-1.0); Total Protein 6.9 g/dL (6.4-8.9); eGFR CKD-EPI 25.6 (>60)
[2022-04-13] MEDS ORDERED: Lactated Ringers 1000 ml BAG 1,000 ML IV ONE ×2 (01:40→04:25)
[2022-04-13 02:03] LABS: High Sensitivity Troponin 1 Hr 9 pg/mL (<15)
[2022-04-13] MEDS ORDERED: Cefepime 2 GM in Dextrose 2 GM/50 ML BAG IV ONE (02:03)
[2022-04-13 02:26] LABS: Microcytosis 1+
[2022-04-13 02:27] LABS: ABS Lymphocytes 1.2 10^3/ul (1.0-4.8); ABS Monocytes 0.3 10^3/ul (0-0.8); Eosinophil % 1.2 %; Lymphocyte % 59.6 %; Nucleated Red Blood Cells % 0.2
[2022-04-13 03:56] LABS: Magnesium 1.8 mg/dL (1.9-2.7)
[2022-04-13] MEDS ORDERED: Magnesium Sulfate 2 gm BAG 2 GM/50 ML BAG IVPB ONE (04:06)
[2022-04-13] MEDS ORDERED: Triamcinolone 0.5% CREAM(NF) 15 GM TUBE TOPICAL PRN (04:12)
[2022-04-13] MEDS ORDERED: Dextrose 50% Syringe 50 ml 25 GM/50 ML SYRINGE IV PUSH PRN (04:15)
[2022-04-13 05:58] LABS: Hematocrit 27 % (35-47); Hemoglobin 8.8 g/dL (12.0-16.0); Mean Corpuscular HGB Conc 33 g/dL (31-36); Mean Corpuscular Hemoglobin 27 pg (27-31); Mean Corpuscular Volume 83 fL (80-97); Red Blood Count 3.23 10^6 /uL (3.70-4.87); Red Cell Distribution Width 15 % (10-15); White Blood Count 2.3 10^3/uL (3.5-10.8)
[2022-04-13 06:27] LABS: Calcium 9.3 mg/dL (8.6-10.3); Potassium 3.5 mmol/L (3.5-5.0); eGFR CKD-EPI 35.9 (>60)
[2022-04-13 06:28] LABS: ABS Neutrophils 0.5 10^3/ul (1.5-7.7)
[2022-04-13 07:32] LABS: ABS Lymphocytes 1.4 10^3/ul (1.0-4.8); ABS Monocytes 0.3 10^3/ul (0-0.8); Eosinophil % 1.1 %; Lymphocyte % 63.2 %; Nucleated Red Blood Cells % 0.1
[2022-04-13 07:33] LABS: Anisocytosis 1+; Microcytosis 2+; Platelet Morphology Clumped
[2022-04-13 07:35] LABS: Platelet Count Platelets clumped. 10^3/uL (150-450)
[2022-04-13 07:55] LABS: Erythrocyte Sed Rate 35 mm/Hr (0-29)
[2022-04-13 08:03] LABS: Uric Acid 4.2 mg/dL (2.3-6.6)
[2022-04-13 08:19] LABS: TSH Ultra Thyroid Stim Horm 6.14 mcIU/mL (0.34-5.60)
[2022-04-13 08:31] LABS: Folate 17.65 ng/mL (5.90-24.80)
[2022-04-13 09:52] LABS: Urine Appearance Clear; Urine Bilirubin Negative (Negative); Urine Blood 1+ (Negative); Urine Color Straw; Urine Glucose 3+(>=500 mg/dL) (Negative); Urine Ketones Negative (Negative); Urine Nitrite Negative (Negative); Urine Protein 1+(30 mg/dL) (Negative); Urine Urobilinogen Negative (Negative)
[2022-04-13 10:43] LABS: Free T4 0.74 ng/dL (0.61-1.12)
[2022-04-13 12:06] LABS: Hematocrit 27 % (35-47); Hemoglobin 8.8 g/dL (12.0-16.0); Mean Corpuscular HGB Conc 33 g/dL (31-36); Mean Corpuscular Hemoglobin 27 pg (27-31); Mean Corpuscular Volume 81 fL (80-97); Mean Platelet Volume 8.9 fL (7.4-10.4); Platelet Count 127 10^3/uL (150-450); Red Blood Count 3.28 10^6 /uL (3.70-4.87); Red Cell Distribution Width 16 % (10-15); White Blood Count 2.6 10^3/uL (3.5-10.8)
[2022-04-13 12:11] LABS: ABS Lymphocytes 1.6 10^3/ul (1.0-4.8); ABS Monocytes 0.3 10^3/ul (0-0.8); ABS Neutrophils 0.6 10^3/ul (1.5-7.7)
[2022-04-13 12:12] LABS: Eosinophil % 1.7 %; Lymphocyte % 62.2 %; Nucleated Red Blood Cells % 0.1
[2022-04-13] MEDS: Enoxaparin 30 MG/0.3 ML SYR SUBCUT SCH (12:25)
[2022-04-13] MEDS: DOXYcycline 100 MG in NS 0.9% 250 ml 250 ML IVPB SCH ×2 (12:25→22:22)
[2022-04-13] MEDS: Timolol 0.5% OPTH.SOL BTL LEFT EYE SCH (12:27)
[2022-04-13 13:13] LABS: Hepatitis C Antibody Negative (Negative)
[2022-04-13 13:33] LABS: HIV 4th Generation Nonreactive (Nonreactive)
[2022-04-13 14:15] LABS: Ferritin 2403.6 ng/mL (11-307)
[2022-04-13] MEDS ORDERED: Fenofibrate 145 mg TAB (NF) PO SCH (21:00)
[2022-04-13] MEDS: Aspirin EC 81 mg TAB.EC (enteric coated) PO SCH (22:21)
[2022-04-13] MEDS: Insulin GLARGINE 100 un/ml 10 ml VIAL SUBCUT SCH (22:21)
[2022-04-13] MEDS: Latanoprost 0.005% 2.5 ml BTL LEFT EYE SCH (22:22)
[2022-04-14] MEDS: Cefepime 1 GM in Dextrose 1 GM/50 ML BAG IV SCH (02:40)
[2022-04-14 07:07] LABS: Hematocrit 26 % (35-47); Hemoglobin 8.7 g/dL (12.0-16.0); Mean Corpuscular HGB Conc 33 g/dL (31-36); Mean Corpuscular Hemoglobin 28 pg (27-31); Mean Corpuscular Volume 83 fL (80-97); Mean Platelet Volume 9.1 fL (7.4-10.4); Platelet Count 145 10^3/uL (150-450); Red Blood Count 3.18 10^6 /uL (3.70-4.87); Red Cell Distribution Width 16 % (10-15); White Blood Count 3.4 10^3/uL (3.5-10.8)
[2022-04-14 07:23] LABS: Albumin 3.3 g/dL (3.2-5.2); Albumin/Globulin Ratio 1.3 (1-3); Calcium 8.8 mg/dL (8.6-10.3); Globulin 2.6 g/dL (2-4); Magnesium 1.8 mg/dL (1.9-2.7); Potassium 3.8 mmol/L (3.5-5.0); Total Bilirubin 0.4 mg/dL (0.2-1.0); Total Protein 5.9 g/dL (6.4-8.9); eGFR CKD-EPI 51.9 (>60)
[2022-04-14 07:35] LABS: ABS Eosinophils 0.1 10^3/ul (0-0.6); ABS Lymphocytes 2.2 10^3/ul (1.0-4.8); ABS Monocytes 0.3 10^3/ul (0-0.8); ABS Neutrophils 0.7 10^3/ul (1.5-7.7); Eosinophil % 2.7 %; Lymphocyte % 65.8 %; Nucleated Red Blood Cells % 0.1
[2022-04-14] MEDS: DOXYcycline 100 MG in NS 0.9% 250 ml 250 ML IVPB SCH ×2 (08:31→21:24)
[2022-04-14] MEDS: Enoxaparin 30 MG/0.3 ML SYR SUBCUT SCH (08:31)
[2022-04-14] MEDS: Timolol 0.5% OPTH.SOL BTL LEFT EYE SCH (08:32)
[2022-04-14 08:40] LABS: RBC Morphology Normal (Normal)
[2022-04-14 11:34] LABS: Cytomegalovirus IgG Antibody Positive (Negative)
[2022-04-14 11:55] LABS: Hematocrit 28 % (35-47); Mean Corpuscular HGB Conc 32 g/dL (31-36); Mean Corpuscular Hemoglobin 26 pg (27-31); Mean Corpuscular Volume 82 fL (80-97); Mean Platelet Volume 8.8 fL (7.4-10.4); Platelet Count 156 10^3/uL (150-450); Red Blood Count 3.43 10^6 /uL (3.70-4.87); Red Cell Distribution Width 16 % (10-15); White Blood Count 3.6 10^3/uL (3.5-10.8)
[2022-04-14 12:08] LABS: Erythropoietin 15.6 mIU/mL (2.6 - 18.5)
[2022-04-14 12:11] LABS: ABS Eosinophils 0.1 10^3/ul (0-0.6); ABS Lymphocytes 2.4 10^3/ul (1.0-4.8); ABS Monocytes 0.3 10^3/ul (0-0.8); ABS Neutrophils 0.9 10^3/ul (1.5-7.7); Eosinophil % 2.6 %; Lymphocyte % 65.3 %; Nucleated Red Blood Cells % 0.1
[2022-04-14] MEDS ORDERED: Dextrose 50% Syringe 50 ml 25 GM/50 ML SYRINGE IV PUSH PRN (17:32)
[2022-04-14 19:51] LABS: Anaplasma phagocytophilum Positive (Negative); B. miyamotoi PCR, B Negative (Negative); Babesia divergens/MO-1 Negative (Negative); Babesia ducani Negative (Negative); Ehrlichia chaffeensis Negative (Negative); Ehrlichia ewingii/canis Negative (Negative); Ehrlichia muris eauclairensis Negative (Negative)
[2022-04-14] MEDS: Insulin GLARGINE 100 un/ml 10 ml VIAL SUBCUT SCH (21:23)
[2022-04-14] MEDS: Aspirin EC 81 mg TAB.EC (enteric coated) PO SCH (21:24)
[2022-04-14] MEDS: Latanoprost 0.005% 2.5 ml BTL LEFT EYE SCH (21:24)
[2022-04-15] MEDS: Cefepime 1 GM in Dextrose 1 GM/50 ML BAG IV SCH (02:26)
[2022-04-15] MEDS: Enoxaparin 30 MG/0.3 ML SYR SUBCUT SCH (08:12)
[2022-04-15] MEDS: Timolol 0.5% OPTH.SOL BTL LEFT EYE SCH (08:13)
[2022-04-15] MEDS: DOXYcycline 100 MG in NS 0.9% 250 ml 250 ML IVPB SCH (09:45)
[2022-04-15 10:55] VITALS: BP 120/48
[2022-04-15 11:10] LABS: ABS Eosinophils 0.1 10^3/ul (0-0.6); ABS Lymphocytes 2.6 10^3/ul (1.0-4.8); ABS Monocytes 0.3 10^3/ul (0-0.8); ABS Neutrophils 1.7 10^3/ul (1.5-7.7); Eosinophil % 2.8 %; Hematocrit 27 % (35-47); Lymphocyte % 55.2 %; Mean Corpuscular HGB Conc 33 g/dL (31-36); Mean Corpuscular Hemoglobin 27 pg (27-31); Mean Corpuscular Volume 83 fL (80-97); Mean Platelet Volume 8.7 fL (7.4-10.4); Platelet Count 191 10^3/uL (150-450); Red Cell Distribution Width 16 % (10-15); White Blood Count 4.7 10^3/uL (3.5-10.8)
[2022-04-16 13:21] LABS: Haptoglobin 87 mg/dL (30 - 200)
[2022-04-16 16:25] LABS: Albumin 3.2 g/dL (3.4-4.7); Gamma Globulin 0.9 g/dL (0.6-1.6); Total Protein(PEP) 6.7 g/dL (6.3 - 7.9)
[2022-04-19 00:13] LABS: Calprotectin <50.0 mcg/g
== END 2022-04-15 12:55 | disposition home or self-care (01) | DRG 809 ==
LOC: ED 23:08 → EDHOLD 04-13 04:08 → SUATTDRO 04-13 04:08 → EDHOLD 04-13 10:04 → MED 04-13 10:18
PROVIDERS: ADMIT Hospitalist; ATTEND Internal Medicine